=== PATIENT | female | born 1950 | race Caucasian/White ===

== ENCOUNTER 2016-09-15 09:16 | Inpatient (IN) | payer MEDICAID, OTHER ==
[~2016-09-15] VITALS: Ht 160 cm; Wt 75.7 kg
[~2016-09-15 09:16] MED LIST: ACET325T14 PO; HYDR-3138 PO; LISI-167; LISI-167 PO; TRAM50TA2 PO
[2016-09-15] MEDS ORDERED: SODIUM CHLORIDE 0.9% 1,000 ML IV ONE (09:49)
[2016-09-15] MEDS ORDERED: ONDANSETRON 2MG/ML, 2ML IVPush ONE (10:00)
[2016-09-15] MEDS ORDERED: MORPHINE SULFATE 4 MG/ML, 1ML IVPush PRN (10:00)
[2016-09-15] MEDS ORDERED: SODIUM CHLORIDE 0.9% 1,000ML IVBOLUS ONE (10:00)
[2016-09-15] MEDS ORDERED: ONDANSETRON 2MG/ML, 2ML ONE (10:58)
[2016-09-15] MEDS ORDERED: MORPHINE SULFATE 4 MG/ML, 1ML ONE (10:58)
[2016-09-15 13:31] LABS: BLOOD UREA NITROGEN 6 mg/dL (7-18)
[2016-09-15 13:51] LABS: PATH.CAST-FLAG NOT PRESENT; SPERM-FLAG NOT PRESENT; SRC-FLAG NOT PRESENT; XTAL-FLAG NOT PRESENT; YLC-FLAG NOT PRESENT
[2016-09-15] MEDS ORDERED: ACETAMINOPHEN 325 MG TABLET PO PRN (14:30)
[2016-09-15] MEDS ORDERED: DOCUSATE 100 MG CAPSULE PO PRN (14:30)
[2016-09-15] MEDS ORDERED: LORazepam 1MG TABLET PO PRN (14:30)
[2016-09-15] MEDS ORDERED: POLYETHYLENE GLYCOL 17 GM PACKET PO PRN (14:30)
[2016-09-15] MEDS ORDERED: ENALAPRILAT 1.25 MG/ML, 2ML IVPush PRN (14:30)
[2016-09-15] MEDS ORDERED: ONDANSETRON 2MG/ML, 2ML IVP PRN (14:30)
[2016-09-15 14:53] VITALS: BP 130/75
[2016-09-15] MEDS: MORPHINE SULFATE 4 MG/ML, 1ML IVPush PRN ×3 (15:00→22:19)
[2016-09-15 16:03] LABS: TOTAL IRON BINDING CAPACITY 401 mcg/dL (250-450)
[2016-09-15] MEDS: NS + 20MEQ KCL 1,000 ML IV SCH (17:18)
[2016-09-15] MEDS: CEFTRIAXONE PMX 2GM/50ML 50 ML IV SCH (17:19)
[2016-09-15 18:24] VITALS: BP 124/68
[2016-09-15] MEDS: HYDROcodone/APAP 5/325 TABLET PO PRN (20:26)
[2016-09-16 01:58] VITALS: BP 126/72
[2016-09-16] MEDS: HYDROcodone/APAP 5/325 TABLET PO PRN (04:11)
[2016-09-16] MEDS: MORPHINE SULFATE 4 MG/ML, 1ML IVPush PRN ×5 (04:54→21:37)
[2016-09-16 05:17] LABS: BLOOD UREA NITROGEN 9 mg/dL (7-18)
[2016-09-16 05:21] LABS: ASPARTATE AMINO TRANSFERASE 25 U/L (15-37)
[2016-09-16 07:06] VITALS: BP 140/72
[2016-09-16] MEDS: LISINOPRIL 10 MG TABLET PO SCH (09:50)
[2016-09-16] MEDS: OXYcodone/APAP 5/325MG TABLET PO PRN ×3 (13:56→22:09)
[2016-09-16] MEDS: NS + 20MEQ KCL 1,000 ML IV SCH ×2 (13:57→20:50)
[2016-09-16 14:51] VITALS: BP 128/58
[2016-09-16] MEDS: CEFTRIAXONE PMX 2GM/50ML 50 ML IV SCH (16:10)
[2016-09-16] MEDS: FERROUS SULFATE 325 MG TABLET PO SCH (17:31)
[2016-09-16 19:55] VITALS: BP 144/74
[2016-09-17 01:53] VITALS: BP 146/79
[2016-09-17] MEDS: MORPHINE SULFATE 4 MG/ML, 1ML IVPush PRN ×7 (02:06→23:31)
[2016-09-17] MEDS: OXYcodone/APAP 5/325MG TABLET PO PRN ×5 (02:19→21:55)
[2016-09-17] MEDS: NS + 20MEQ KCL 1,000 ML IV SCH ×2 (05:48→23:30)
[2016-09-17 08:15] VITALS: BP 138/98
[2016-09-17] MEDS: LISINOPRIL 10 MG TABLET PO SCH (09:20)
[2016-09-17] MEDS: FERROUS SULFATE 325 MG TABLET PO SCH ×2 (09:20→17:11)
[2016-09-17 15:50] VITALS: BP 153/75
[2016-09-17] MEDS: CEFTRIAXONE PMX 2GM/50ML 50 ML IV SCH (17:11)
[2016-09-17] MEDS: ENOXAPARIN 40 MG/0.4 ML SQ SCH (17:12)
[2016-09-17 18:22] VITALS: BP 154/85
[2016-09-18] MEDS: OXYcodone/APAP 5/325MG TABLET PO PRN (02:20)
[2016-09-18 02:24] VITALS: BP 142/79
[2016-09-18] MEDS: MORPHINE SULFATE 4 MG/ML, 1ML IVPush PRN (04:25)
[2016-09-18 07:15] VITALS: BP 134/83
[2016-09-18] MEDS: OXYcodone IR 5MG TABLET PO PRN ×4 (08:29→22:09)
[2016-09-18] MEDS: LISINOPRIL 10 MG TABLET PO SCH (08:31)
[2016-09-18] MEDS: FERROUS SULFATE 325 MG TABLET PO SCH ×2 (08:31→18:07)
[2016-09-18] MEDS ORDERED: CEFD300C37 PO (09:11)
[2016-09-18] MEDS ORDERED: OXYC5TAB3 PO (09:11)
[2016-09-18] MEDS ORDERED: ASPI325T4 PO (09:11)
[2016-09-18] MEDS: NS + 20MEQ KCL 1,000 ML IV SCH (12:50)
[2016-09-18 15:13] VITALS: BP 142/76
[2016-09-18] MEDS: CEFTRIAXONE PMX 2GM/50ML 50 ML IV SCH (17:00)
[2016-09-18] MEDS: ENOXAPARIN 40 MG/0.4 ML SQ SCH (18:07)
[2016-09-18 19:55] VITALS: BP 150/90
[2016-09-18] MEDS: CEFDINIR 300 MG CAPSULE PO SCH (21:09)
[2016-09-19 02:04] VITALS: BP 112/61
[2016-09-19] MEDS: OXYcodone IR 5MG TABLET PO PRN ×6 (02:09→23:47)
[2016-09-19 07:59] VITALS: BP 133/74
[2016-09-19] MEDS: FERROUS SULFATE 325 MG TABLET PO SCH ×2 (09:43→17:32)
[2016-09-19] MEDS: LISINOPRIL 10 MG TABLET PO SCH (09:44)
[2016-09-19] MEDS: CEFDINIR 300 MG CAPSULE PO SCH ×2 (09:44→20:36)
[2016-09-19] MEDS: KETOROLAC 30 MG/1 ML IVPush PRN ×3 (11:52→23:47)
[2016-09-19 13:32] VITALS: BP 129/69
[2016-09-19] MEDS: ENOXAPARIN 40 MG/0.4 ML SQ SCH (17:00)
[2016-09-19 18:33] VITALS: BP 155/76
[2016-09-20 02:08] VITALS: BP 136/68
[2016-09-20] MEDS: OXYcodone IR 5MG TABLET PO PRN ×5 (04:34→20:54)
[2016-09-20] MEDS: KETOROLAC 30 MG/1 ML IVPush PRN ×3 (05:55→18:31)
[2016-09-20 07:45] VITALS: BP 148/85
[2016-09-20] MEDS: FERROUS SULFATE 325 MG TABLET PO SCH ×2 (08:37→17:09)
[2016-09-20] MEDS: CEFDINIR 300 MG CAPSULE PO SCH ×2 (08:38→20:54)
[2016-09-20] MEDS: LISINOPRIL 10 MG TABLET PO SCH (08:38)
[2016-09-20 13:20] VITALS: BP 139/68
[2016-09-20] MEDS: ENOXAPARIN 40 MG/0.4 ML SQ SCH (17:00)
[2016-09-20 20:17] VITALS: BP 150/81
[2016-09-21] MEDS: OXYcodone IR 5MG TABLET PO PRN ×5 (02:07→21:27)
[2016-09-21] MEDS: KETOROLAC 30 MG/1 ML IVPush PRN ×5 (02:07→23:21)
[2016-09-21 03:52] VITALS: BP 151/79
[2016-09-21 07:10] VITALS: BP 183/83
[2016-09-21] MEDS: FERROUS SULFATE 325 MG TABLET PO SCH ×2 (07:32→17:48)
[2016-09-21] MEDS: LISINOPRIL 10 MG TABLET PO SCH (08:42)
[2016-09-21] MEDS: CEFDINIR 300 MG CAPSULE PO SCH ×2 (08:42→21:27)
[2016-09-21 08:44] VITALS: BP 155/76
[2016-09-21 13:10] VITALS: BP 157/81
[2016-09-21 15:04] VITALS: BP 138/78
[2016-09-21] MEDS: ENOXAPARIN 40 MG/0.4 ML SQ SCH (17:00)
[2016-09-21 19:46] VITALS: BP 148/76
[2016-09-22 02:03] VITALS: BP 121/63
[2016-09-22] MEDS: OXYcodone IR 5MG TABLET PO PRN ×4 (02:07→15:08)
[2016-09-22] MEDS: KETOROLAC 30 MG/1 ML IVPush PRN ×2 (06:08→12:17)
[2016-09-22 08:16] VITALS: BP 151/79
[2016-09-22] MEDS: FERROUS SULFATE 325 MG TABLET PO SCH (08:26)
[2016-09-22] MEDS: LISINOPRIL 10 MG TABLET PO SCH (09:47)
[2016-09-22] MEDS: CEFDINIR 300 MG CAPSULE PO SCH (09:48)
[2016-09-22 13:19] VITALS: BP 132/68
[2016-09-22 17:21] VITALS: BP 158/83
== END 2016-09-22 17:40 | disposition home or self-care (01) | DRG 536 ==
LOC: ED 13:17 → EDIP 13:18 → ED 13:38 → 4NOR 14:25
PROVIDERS: ADMIT Internal Medicine; ATTEND Internal Medicine
DX: S72.114A Nondisplaced fracture of greater trochanter of right femur, initial encounter for closed fracture (principal); N39.0 Urinary tract infection, site not specified; E44.1 Mild protein-calorie malnutrition; M48.56XA Collapsed vertebra, not elsewhere classified, lumbar region, initial encounter for fracture; D64.9 Anemia, unspecified; D75.89 Other specified diseases of blood and blood-forming organs; E87.6 Hypokalemia; G89.29 Other chronic pain; I10 Essential (primary) hypertension; W01.0XXA Fall on same level from slipping, tripping and stumbling without subsequent striking against object, initial encounter; Z96.643 Presence of artificial hip joint, bilateral; B96.20 Unspecified Escherichia coli [E. coli] as the cause of diseases classified elsewhere; D50.9 Iron deficiency anemia, unspecified; Z68.28 Body mass index [BMI] 28.0-28.9, adult; Z90.49 Acquired absence of other specified parts of digestive tract; Z82.49 Family history of ischemic heart disease and other diseases of the circulatory system; Y93.89 Activity, other specified; Y92.89 Other specified places as the place of occurrence of the external cause; Y99.8 Other external cause status; Z79.899 Other long term (current) drug therapy; Z68.29 Body mass index [BMI] 29.0-29.9, adult
CPT/HCPCS: 36415; 71010; 72110; 80048; 80053; 81001; 82040; 82607; 82746; 83540; 83550; 83735; 84100; 85025; 87077; 87086; 87186; 93005; 96361; 96374; 96375; J0696; J1650; J1885; J2405; J3480; J7030

== ENCOUNTER 2016-09-24 18:42 | Emergency (ER) | payer MEDICAID ==
[~2016-09-24] VITALS: Ht 162.6 cm; Wt 72.0 kg
[~2016-09-24 18:42] MED LIST changes: +ASPI325T4 PO; +CEFD300C37 PO; +OXYC5TAB3 PO
[2016-09-24] MEDS ORDERED: ONDANSETRON 2MG/ML, 2ML IVPush ONE (20:00)
[2016-09-24] MEDS ORDERED: ONDANSETRON 2MG/ML, 2ML ONE (20:08)
[2016-09-24] MEDS ORDERED: MORPHINE SULFATE 4 MG/ML, 1ML ONE ×2 (20:08→22:10)
[2016-09-24 20:17] LABS: BLOOD UREA NITROGEN 14 mg/dL (7-18)
[2016-09-24] MEDS: MORPHINE SULFATE 4 MG/ML, 1ML IVPush PRN ×2 (21:11→22:13)
[2016-09-24 22:55] VITALS: BP 124/78
== END 2016-09-24 22:59 | disposition home or self-care (01) ==
LOC: ED 21:59
DX: G89.29 Other chronic pain (principal); M25.551 Pain in right hip; I10 Essential (primary) hypertension
CPT/HCPCS: 36415; 72110; 80048; 81001; 85025; 87086; 93971; 96374; 96375; 96376; 99285; J2405

== ENCOUNTER 2016-10-11 12:02 | Observation (INO) | payer MEDICAID ==
[~2016-10-11] VITALS: Ht 167.6 cm; Wt 64.4 kg
[2016-10-11] MEDS ORDERED: SODIUM CHLORIDE FLUSH 10ML SYR IVF ONE (12:30)
[2016-10-11] MEDS ORDERED: ASPIRIN 81 MG TABLET CHEW PO ONE (12:30)
[2016-10-11] MEDS ORDERED: SODIUM CHLORIDE 0.9% 1,000ML IVBOLUS ONE ×2 (12:30→14:30)
[2016-10-11] MEDS ORDERED: PLEASE ENTER HEIGHT AND WEIGHT MC SCH (13:00)
[2016-10-11] MEDS ORDERED: ASPIRIN 81 MG TABLET CHEW ONE (13:11)
[2016-10-11 13:17] LABS: BLOOD UREA NITROGEN 21 mg/dL (7-18)
[2016-10-11 13:24] LABS: IS PT STATUS REG ER OR PRE ER? YES
[2016-10-11] MEDS ORDERED: SODIUM CHLORIDE FLUSH 10ML SYR IVF PRN (15:30)
[2016-10-11] MEDS ORDERED: POTASSIUM CHLORIDE 20 MEQ TAB.ER.PRT PO ONE (16:30)
[2016-10-11] MEDS ORDERED: ENALAPRILAT 1.25 MG/ML, 2ML IVPush PRN (17:00)
[2016-10-11] MEDS ORDERED: BISACODYL 10 MG SUPP PR PRN (17:00)
[2016-10-11] MEDS ORDERED: DOCUSATE 100 MG CAPSULE PO PRN (17:00)
[2016-10-11] MEDS ORDERED: TRAZODONE 50MG TABLET PO PRN (17:00)
[2016-10-11] MEDS ORDERED: ONDANSETRON ODT 4 MG PO PRN (17:00)
[2016-10-11] MEDS: morphine SULFATE 10 MG/ML, 1ML IVPush PRN ×2 (18:03→21:21)
[2016-10-11 18:35] LABS: IS PT STATUS REG ER OR PRE ER? NO
[2016-10-11] MEDS: SODIUM CHLORIDE FLUSH 3ML SYRINGE IVF SCH (21:00)
[2016-10-11] MEDS: ENOXAPARIN 40 MG/0.4 ML SQ SCH (21:00)
[2016-10-11] MEDS: CEFTRIAXONE PMX 1GM/50ML 50 ML IV SCH (21:20)
[2016-10-11 21:28] VITALS: BP 174/90
[2016-10-12 01:58] VITALS: BP 166/88
[2016-10-12] MEDS: morphine SULFATE 10 MG/ML, 1ML IVPush PRN ×4 (04:27→23:31)
[2016-10-12 06:41] VITALS: BP 161/85
[2016-10-12 07:46] LABS: BLOOD UREA NITROGEN 10 mg/dL (7-18)
[2016-10-12] MEDS: ASPIRIN 325 MG TABLET EC PO SCH (08:15)
[2016-10-12] MEDS: SODIUM CHLORIDE FLUSH 3ML SYRINGE IVF SCH ×2 (08:16→21:00)
[2016-10-12] MEDS: HYDROcodone/APAP 5/325 TABLET PO PRN ×3 (10:15→21:04)
[2016-10-12 14:21] VITALS: BP 161/80
[2016-10-12] MEDS: METOPROLOL TARTRATE 25 MG TABLET PO SCH (16:38)
[2016-10-12] MEDS: ENOXAPARIN 40 MG/0.4 ML SQ SCH (21:00)
[2016-10-12] MEDS: CEFTRIAXONE PMX 1GM/50ML 50 ML IV SCH (21:03)
[2016-10-12 21:06] VITALS: BP 158/79
[2016-10-13 01:31] VITALS: BP 156/84
[2016-10-13] MEDS: HYDROcodone/APAP 5/325 TABLET PO PRN ×3 (03:06→12:15)
[2016-10-13] MEDS: METOPROLOL TARTRATE 25 MG TABLET PO SCH (06:16)
[2016-10-13] MEDS: ASPIRIN 325 MG TABLET EC PO SCH (06:16)
[2016-10-13 07:19] VITALS: BP 168/83
[2016-10-13] MEDS: SODIUM CHLORIDE FLUSH 3ML SYRINGE IVF SCH (07:48)
[2016-10-13] MEDS ORDERED: REGADENOSON 0.4 MG/5 ML SYRINGE ONE (08:16)
[2016-10-13 13:30] VITALS: BP 139/78
[2016-10-13] MEDS ORDERED: OXYcodone/APAP 10/325MG TABLET PO SCH (14:00)
[2016-10-13] MEDS ORDERED: MORPHINE SULFATE 4 MG/ML, 1ML IVPush ONE (14:00)
[2016-10-13] MEDS ORDERED: METO25TA35 PO (15:38)
[2016-10-13] MEDS ORDERED: HYDR-3240 PO (15:38)
[2016-10-13] MEDS ORDERED: METOPROLOL TARTRATE 25 MG TABLET PO SCH (18:00)
[2016-10-13] MEDS ORDERED: SODIUM CHLORIDE FLUSH 3ML SYRINGE IVF SCH (21:00)
== END 2016-10-13 17:55 | disposition home or self-care (01) ==
LOC: ED 16:30 → 5SO 16:31 → ED 16:42
PROVIDERS: ADMIT Internal Medicine; ATTEND Internal Medicine
DX: M25.551 Pain in right hip (principal); M79.604 Pain in right leg; M79.601 Pain in right arm; R07.89 Other chest pain; G89.29 Other chronic pain; R30.0 Dysuria; E87.6 Hypokalemia; I10 Essential (primary) hypertension; D64.9 Anemia, unspecified; D75.89 Other specified diseases of blood and blood-forming organs; E46 Unspecified protein-calorie malnutrition; M19.012 Primary osteoarthritis, left shoulder; N39.0 Urinary tract infection, site not specified; Z96.643 Presence of artificial hip joint, bilateral
CPT/HCPCS: 36415; 70450; 71010; 73030; 73502; 78452; 80048; 81001; 82040; 84484; 85025; 93005; 93017; 96361; 96365; 96366; 96375; 96376; 97161; 97165; 99285; A9502; C9898; G0378; J0696; J2270; J2785; J7030

== ENCOUNTER 2016-12-15 18:56 | Emergency (ER) | payer SELFPAY ==
[~2016-12-15] VITALS: Ht 157.5 cm; Wt 75.0 kg
[~2016-12-15 18:56] MED LIST changes: +HYDR-3240 PO; +METO25TA35 PO
[2016-12-15] MEDS ORDERED: SODIUM CHLORIDE 0.9% 1,000ML IVBOLUS ONE (19:30)
[2016-12-15] MEDS ORDERED: ACETAMINOPHEN 325 MG TABLET PO ONE (19:30)
[2016-12-15] MEDS ORDERED: SODIUM CHLORIDE FLUSH 10ML SYR IVF ONE (19:30)
[2016-12-15] MEDS ORDERED: PLEASE ENTER HEIGHT AND WEIGHT MC SCH (19:30)
[2016-12-15] MEDS ORDERED: ACETAMINOPHEN 500 MG TABLET ONE (19:30)
[2016-12-15 20:27] LABS: BLOOD UREA NITROGEN 19 mg/dL (7-18)
[2016-12-15 20:36] LABS: IS PT STATUS REG ER OR PRE ER? YES
[2016-12-15] MEDS ORDERED: OMNIPAQUE 350 MG/ML, 100ML BOTTLE ONE (22:18)
[2016-12-15] MEDS ORDERED: ENAL2.5T PO (23:10)
[2016-12-15] MEDS ORDERED: NAPR-874 PO (23:10)
[2016-12-15 23:31] VITALS: BP 110/80
== END 2016-12-16 00:01 | disposition home or self-care (01) ==
LOC: ED 20:08
DX: M25.551 Pain in right hip (principal); G89.29 Other chronic pain; F10.120 Alcohol abuse with intoxication, uncomplicated; I10 Essential (primary) hypertension; I25.2 Old myocardial infarction; Z96.643 Presence of artificial hip joint, bilateral
CPT/HCPCS: 36415; 70450; 71010; 71275; 72125; 80048; 80307; 82040; 84484; 85025; 85379; 85610; 85730; 93005; 96360; 99285; J7030; Q9967

== ENCOUNTER 2016-12-23 17:09 | Emergency (ER) | payer OTHER ==
[~2016-12-23] VITALS: Ht 165.1 cm; Wt 90.0 kg
[~2016-12-23 17:09] MED LIST changes: +ENAL2.5T PO; +NAPR-874 PO
[2016-12-23 19:24] VITALS: BP 128/68
== END 2016-12-23 19:42 | disposition home or self-care (01) ==
LOC: ED 19:00
DX: F10.229 Alcohol dependence with intoxication, unspecified (principal); I10 Essential (primary) hypertension
CPT/HCPCS: 99283

== ENCOUNTER 2017-01-02 17:09 | Emergency (ER) | payer MEDICAID, OTHER ==
[~2017-01-02] VITALS: Ht 147.3 cm; Wt 60.0 kg
[2017-01-02] MEDS ORDERED: ASPI-650 PO (17:42)
[2017-01-02 19:34] VITALS: BP 138/87
== END 2017-01-02 21:50 | disposition home or self-care (01) ==
LOC: ED 18:35
DX: F10.220 Alcohol dependence with intoxication, uncomplicated (principal); I10 Essential (primary) hypertension; Z96.643 Presence of artificial hip joint, bilateral
CPT/HCPCS: 99283

== ENCOUNTER 2017-01-28 18:10 | Emergency (ER) | payer MEDICAID, OTHER ==
[~2017-01-28] VITALS: Ht 162.6 cm; Wt 72.0 kg
[~2017-01-28 18:10] MED LIST changes: +ASPI-650 PO; +ASPI325T17 PO; -ASPI325T4 PO; -HYDR-3138 PO; +HYDR-3237 PO
[2017-01-28] MEDS ORDERED: THIAMINE 100MG TABLET PO ONE (18:30)
[2017-01-28] MEDS ORDERED: KETOROLAC 60 MG/2 ML IM ONE (18:30)
[2017-01-28] MEDS ORDERED: SODIUM CHLORIDE FLUSH 10ML SYR IVF ONE (18:30)
[2017-01-28] MEDS ORDERED: THIAMINE 100MG TABLET ONE (18:57)
[2017-01-28] MEDS ORDERED: KETOROLAC 30 MG/1 ML ONE (18:57)
[2017-01-28 19:11] LABS: HEMATOCRIT 34.9 % (34.6-47.8); HEMOGLOBIN 11.1 g/dL (11.7-16.4); WHITE BLOOD COUNT 7.9 x10^3/uL (3.4-10)
[2017-01-28 19:21] LABS: BLOOD UREA NITROGEN 12 mg/dL (7-18)
[2017-01-28 19:27] LABS: IS PT STATUS REG ER OR PRE ER? YES
[2017-01-28] MEDS ORDERED: POTASSIUM CHLORIDE 40 MEQ in SODIUM CHLORIDE 0.9% 500 ML IV ONE (20:00)
[2017-01-28] MEDS ORDERED: POTASSIUM CHLORIDE 10% 40 MEQ/30 ML UDC PO ONE (20:00)
[2017-01-28] MEDS ORDERED: POTASSIUM CHLORIDE 20 MEQ TAB.ER.PRT ONE (20:26)
[2017-01-28 21:36] LABS: IS PT STATUS REG ER OR PRE ER? YES
[2017-01-29 00:26] VITALS: BP 101/54
[2017-01-30] MEDS ORDERED: IBUP-1222 PO (22:16)
[2017-01-30] MEDS ORDERED: OMEP10CA4 PO (22:16)
== END 2017-01-29 01:29 | disposition home or self-care (01) ==
LOC: ED 18:49
DX: E86.0 Dehydration (principal); E87.6 Hypokalemia; F10.229 Alcohol dependence with intoxication, unspecified; R07.89 Other chest pain; I10 Essential (primary) hypertension
CPT/HCPCS: 36415; 71010; 80048; 82040; 84484; 85025; 93005; 96365; 96366; 96372; 99285; J1885; J3480; J7040

== ENCOUNTER 2017-01-30 16:28 | Emergency (ER) | payer SELFPAY ==
[~2017-01-30] VITALS: Ht 152.4 cm; Wt 56.0 kg
[2017-01-30] MEDS ORDERED: FAMOTIDINE 20 MG/2 ML IVP ONE (17:00)
[2017-01-30] MEDS ORDERED: PLEASE ENTER ALLERGIES MC SCH ×2 (17:00)
[2017-01-30] MEDS ORDERED: PROMETHAZINE 25 MG/ML, 1ML IM ONE (17:00)
[2017-01-30] MEDS ORDERED: SODIUM CHLORIDE 0.9% 1,000ML IVBOLUS ONE (17:00)
[2017-01-30] MEDS ORDERED: PLEASE ENTER HEIGHT AND WEIGHT MC SCH (17:00)
[2017-01-30] MEDS ORDERED: PANTOPRAZOLE 40 MG IV IVP ONE (17:00)
[2017-01-30 17:11] LABS: ASPARTATE AMINO TRANSFERASE 51 U/L (15-37); BLOOD UREA NITROGEN 7 mg/dL (7-18)
[2017-01-30 17:17] LABS: HEMATOCRIT 33.3 % (34.6-47.8); HEMOGLOBIN 10.5 g/dL (11.7-16.4)
[2017-01-30 22:14] VITALS: BP 140/80
[2017-01-30] MEDS ORDERED: IBUP-1222 PO (22:16)
[2017-01-30] MEDS ORDERED: OMEP10CA4 PO (22:16)
== END 2017-01-30 22:42 | disposition home or self-care (01) ==
LOC: MERGE 16:28 → ED 21:36
DX: R10.13 Epigastric pain (principal); F10.220 Alcohol dependence with intoxication, uncomplicated; M25.551 Pain in right hip
CPT/HCPCS: 36415; 80053; 80307; 83690; 85025; 99284

== ENCOUNTER 2017-02-01 14:13 | Emergency (ER) | payer OTHER ==
[~2017-02-01] VITALS: Ht 147.3 cm; Wt 60.0 kg
[~2017-02-01 14:13] MED LIST changes: +IBUP-1222 PO; +OMEP10CA4 PO
[2017-02-01 15:48] LABS: HEMATOCRIT 32.5 % (34.6-47.8); HEMOGLOBIN 10.3 g/dL (11.7-16.4); WHITE BLOOD COUNT 10.9 x10^3/uL (3.4-10)
[2017-02-01 16:00] LABS: BLOOD UREA NITROGEN 9 mg/dL (7-18)
[2017-02-01 16:07] LABS: ASPARTATE AMINO TRANSFERASE 48 U/L (15-37)
[2017-02-01 20:31] VITALS: BP 147/86
== END 2017-02-01 20:33 | disposition home or self-care (01) ==
LOC: ED 14:19
DX: F10.220 Alcohol dependence with intoxication, uncomplicated (principal); I10 Essential (primary) hypertension; I25.2 Old myocardial infarction; L40.9 Psoriasis, unspecified
CPT/HCPCS: 36415; 80053; 80307; 83605; 85025; 99284

== ENCOUNTER 2017-07-01 15:08 | Emergency (ER) | payer OTHER ==
[~2017-07-01] VITALS: Ht 166.9 cm; Wt 69.0 kg
[~2017-07-01 15:08] MED LIST changes: -NAPR-874 PO; +NAPR250T6 PO
[2017-07-01 15:46] LABS: BASOPHILS # (AUTO) 0.05 x10^3/uL (0-0.1); BASOPHILS % (AUTO) 1 % (0-1); EOSINOPHILS # (AUTO) 0.11 x10^3/uL (0-0.4); EOSINOPHILS % (AUTO) 2 % (1-7); LYMPHOCYTES # (AUTO) 2.02 x10^3/uL (1-3.4); LYMPHOCYTES % (AUTO) 35 % (22-44); MD NO; MEAN CORPUSCULAR HEMOGLOBIN 26.5 pg (27.0-34.8); MEAN CORPUSCULAR HGB CONC 32.3 g/dL (32.4-35.8); MEAN CORPUSCULAR VOLUME 82.1 fL (80-100); MEAN PLATELET VOLUME 8.3 fL (7.4-10.4); MONOCYTES # (AUTO) 0.42 x10^3/uL (0.2-0.8); MONOCYTES % (AUTO) 7 % (2-9); NEUTROPHILS # (AUTO) 3.23 x10^3/uL (1.8-6.8); NEUTROPHILS % (AUTO) 55 % (42-75); PLATELET COUNT 244 x10^3/uL (130-400); RED BLOOD COUNT 4.23 x10^6/uL (3.82-5.3); RED CELL DISTRIBUTION WIDTH 21.7 % (9.6-15.2)
[2017-07-01 15:59] LABS: ALBUMIN 3.2 g/dL (3.4-5.0); ANION GAP 8 mmol/L (5-15); CALCIUM 7.4 mg/dL (8.5-10.1); CHLORIDE 111 mmol/L (98-107); CREATININE 0.49 mg/dL (0.55-1.02)
[2017-07-01 20:25] VITALS: BP 159/78
== END 2017-07-01 22:05 | disposition home or self-care (01) ==
LOC: ED 17:16
DX: R53.81 Other malaise (principal); F10.220 Alcohol dependence with intoxication, uncomplicated; F19.10 Other psychoactive substance abuse, uncomplicated; I10 Essential (primary) hypertension; X58.XXXA Exposure to other specified factors, initial encounter; Y93.89 Activity, other specified; Y99.8 Other external cause status; Y92.009 Unspecified place in unspecified non-institutional (private) residence as the place of occurrence of the external cause
CPT/HCPCS: 36415; 70450; 72190; 80048; 80307; 82040; 85025; 99285

== ENCOUNTER 2017-09-25 17:37 | Emergency (ER) | payer SELFPAY ==
[~2017-09-25] VITALS: Ht 147.3 cm; Wt 60.0 kg
[2017-09-25 18:03] LABS: BASOPHILS # (AUTO) 0.06 x10^3/uL (0-0.1); BASOPHILS % (AUTO) 1 % (0-1); EOSINOPHILS # (AUTO) 0.24 x10^3/uL (0-0.4); EOSINOPHILS % (AUTO) 3 % (1-7); LYMPHOCYTES % (AUTO) 41 % (22-44); MD NO; MEAN CORPUSCULAR HEMOGLOBIN 28.5 pg (27.0-34.8); MEAN CORPUSCULAR HGB CONC 32.9 g/dL (32.4-35.8); MEAN CORPUSCULAR VOLUME 86.6 fL (80-100); MEAN PLATELET VOLUME 7.7 fL (7.4-10.4); MONOCYTES # (AUTO) 0.82 x10^3/uL (0.2-0.8); MONOCYTES % (AUTO) 9 % (2-9); NEUTROPHILS # (AUTO) 4.17 x10^3/uL (1.8-6.8); NEUTROPHILS % (AUTO) 46 % (42-75); PLATELET COUNT 300 x10^3/uL (130-400); RED BLOOD COUNT 3.59 x10^6/uL (3.82-5.3); RED CELL DISTRIBUTION WIDTH 20.6 % (9.6-15.2)
[2017-09-25 18:14] LABS: ALBUMIN 3.2 g/dL (3.4-5.0); ANION GAP 10 mmol/L (5-15); CHLORIDE 114 mmol/L (98-107); CREATININE 0.93 mg/dL (0.55-1.02)
[2017-09-25 20:39] VITALS: BP 116/65
[2017-09-26] MEDS ORDERED: ASPI-496 PO (17:52)
[2017-09-26] MEDS ORDERED: LISI-167 PO (17:52)
[2017-09-26] MEDS ORDERED: QUET50TA PO (17:52)
[2017-09-26] MEDS ORDERED: CARV12.52 PO (17:52)
[2017-09-26] MEDS ORDERED: ENAL20TA PO (17:52)
[2017-09-26] MEDS ORDERED: ATOR40TA PO (17:52)
[2017-09-26] MEDS ORDERED: HYDR25TA6 PO (17:52)
== END 2017-09-25 21:28 | disposition home or self-care (01) ==
LOC: EDBD → ED 21:00 → MERGE 21:00 → ED 21:28
DX: S32.009A Unspecified fracture of unspecified lumbar vertebra, initial encounter for closed fracture (principal); W07.XXXA Fall from chair, initial encounter; Y93.89 Activity, other specified; Y92.89 Other specified places as the place of occurrence of the external cause; Y99.8 Other external cause status
CPT/HCPCS: 36415; 72131; 72192; 80048; 82040; 85025; 99285

== ENCOUNTER 2017-09-26 14:21 | Inpatient (IN) | payer MEDICAID, OTHER ==
[~2017-09-26] VITALS: Ht 154.9 cm; Wt 63.7 kg
[2017-09-26 15:46] LABS: BASOPHILS # (AUTO) 0.08 x10^3/uL (0-0.1); BASOPHILS % (AUTO) 1 % (0-1); EOSINOPHILS # (AUTO) 0.37 x10^3/uL (0-0.4); EOSINOPHILS % (AUTO) 5 % (1-7); LYMPHOCYTES # (AUTO) 3.77 x10^3/uL (1-3.4); LYMPHOCYTES % (AUTO) 45 % (22-44); MD NO; MEAN CORPUSCULAR HGB CONC 33.3 g/dL (32.4-35.8); MEAN CORPUSCULAR VOLUME 87.1 fL (80-100); MEAN PLATELET VOLUME 7.3 fL (7.4-10.4); MONOCYTES # (AUTO) 0.68 x10^3/uL (0.2-0.8); MONOCYTES % (AUTO) 8 % (2-9); NEUTROPHILS # (AUTO) 3.44 x10^3/uL (1.8-6.8); NEUTROPHILS % (AUTO) 41 % (42-75); PLATELET COUNT 266 x10^3/uL (130-400); RED BLOOD COUNT 3.33 x10^6/uL (3.82-5.3); RED CELL DISTRIBUTION WIDTH 20.7 % (9.6-15.2)
[2017-09-26 15:56] LABS: ANION GAP 11 mmol/L (5-15); CALCIUM 7.3 mg/dL (8.5-10.1); CHLORIDE 114 mmol/L (98-107); CREATININE 0.48 mg/dL (0.55-1.02)
[2017-09-26 16:02] LABS: TROPONIN I 0.272 ng/mL (0.000-0.045)
[2017-09-26] MEDS ORDERED: ASPIRIN 325 MG TABLET PO STA (16:48)
[2017-09-26] MEDS ORDERED: ASPIRIN 325 MG TABLET ONE (16:58)
[2017-09-26] MEDS ORDERED: CEFTRIAXONE PMX 1GM/50ML 50 ML ONE (16:59)
[2017-09-26] MEDS ORDERED: AZITHROMYCIN 500 MG in SODIUM CHLORIDE 0.9% 250 ML IV ONE (17:00)
[2017-09-26] MEDS ORDERED: CEFTRIAXONE PMX 1GM/50ML 50 ML IV ONE (17:00)
[2017-09-26] MEDS ORDERED: NITROGLYCERIN OINT 2%, 1GM TP ONE ×2 (17:17→17:30)
[2017-09-26] MEDS ORDERED: ATORVASTATIN 40 MG TABLET PO ONE (17:30)
[2017-09-26] MEDS ORDERED: HYDR25TA6 PO (17:52)
[2017-09-26] MEDS ORDERED: ENAL20TA PO (17:52)
[2017-09-26] MEDS ORDERED: CARV12.52 PO (17:52)
[2017-09-26] MEDS ORDERED: QUET50TA PO (17:52)
[2017-09-26] MEDS ORDERED: ATOR40TA PO (17:52)
[2017-09-26] MEDS ORDERED: LISI-167 PO (17:52)
[2017-09-26] MEDS ORDERED: ASPI-496 PO (17:52)
[2017-09-26] MEDS ORDERED: LORazepam 0.5MG TABLET PO PRN (18:00)
[2017-09-26] MEDS ORDERED: LABETALOL 5MG/ML, 20ML IVPush PRN (18:00)
[2017-09-26] MEDS ORDERED: LORazepam 1MG TABLET PO PRN ×4 (18:00)
[2017-09-26] MEDS ORDERED: LORazepam 2 MG/ML, 1ML IV PRN ×5 (18:00)
[2017-09-26] MEDS ORDERED: ONDANSETRON 2MG/ML, 2ML IVPush PRN (18:00)
[2017-09-26] MEDS ORDERED: ONDANSETRON ODT 4 MG PO PRN (18:00)
[2017-09-26 20:42] VITALS: BP 154/83
[2017-09-26] MEDS ORDERED: ATORVASTATIN 20 MG TABLET PO SCH (21:00)
[2017-09-26] MEDS: POTASSIUM CHLORIDE 20 MEQ, MAGNESIUM SULFATE 1 GM, MVI ADULT 10 ML, THIAMINE 100 MG, FO... IV SCH (22:32)
[2017-09-26] MEDS: PANTOPRAZOLE 40 MG IV IVPush SCH (22:32)
[2017-09-26] MEDS: SODIUM CHLORIDE 0.9% 1,000 ML IV SCH (22:32)
[2017-09-26] MEDS: GUAIFENESIN 200 MG TABLET PO SCH (22:32)
[2017-09-26] MEDS: ACETAMINOPHEN 325 MG TABLET PO PRN (22:33)
[2017-09-26] MEDS ORDERED: ATORVASTATIN 40 MG TABLET ONE (22:36)
[2017-09-26] MEDS: ATORVASTATIN 40 MG TABLET PO SCH (22:43)
[2017-09-26 23:11] LABS: TROPONIN I 0.283 ng/mL (0.000-0.045)
[2017-09-27] VITALS (8 sets, daily range): BP systolic 122–164; BP diastolic 75–95
[2017-09-27] MEDS ORDERED: ASPI-621 PO (02:53)
[2017-09-27] MEDS ORDERED: QUET50TA PO (02:53)
[2017-09-27] MEDS ORDERED: HYDR25TA6 PO (02:53)
[2017-09-27] MEDS ORDERED: ATOR40TA78 PO (02:53)
[2017-09-27] MEDS ORDERED: CARV-39 PO (03:16)
[2017-09-27] MEDS ORDERED: ENAL20TA PO (03:16)
[2017-09-27 03:30] LABS: CULTURE INDICATED? YES; MICROSCOPIC AUTO
[2017-09-27] MEDS: ASPIRIN 81 MG TABLET EC PO SCH (05:48)
[2017-09-27] MEDS: ACETAMINOPHEN 325 MG TABLET PO PRN ×2 (05:48→16:38)
[2017-09-27] MEDS: GUAIFENESIN 200 MG TABLET PO SCH ×4 (05:48→20:41)
[2017-09-27 05:58] LABS: BASOPHILS # (AUTO) 0.07 x10^3/uL (0-0.1); BASOPHILS % (AUTO) 1 % (0-1); EOSINOPHILS # (AUTO) 0.42 x10^3/uL (0-0.4); EOSINOPHILS % (AUTO) 6 % (1-7); LYMPHOCYTES # (AUTO) 1.63 x10^3/uL (1-3.4); LYMPHOCYTES % (AUTO) 24 % (22-44); MD NO; MEAN CORPUSCULAR HGB CONC 33.3 g/dL (32.4-35.8); MEAN PLATELET VOLUME 7.7 fL (7.4-10.4); MONOCYTES # (AUTO) 0.52 x10^3/uL (0.2-0.8); MONOCYTES % (AUTO) 8 % (2-9); NEUTROPHILS # (AUTO) 4.22 x10^3/uL (1.8-6.8); NEUTROPHILS % (AUTO) 62 % (42-75); PLATELET COUNT 204 x10^3/uL (130-400); RED BLOOD COUNT 3.21 x10^6/uL (3.82-5.3); RED CELL DISTRIBUTION WIDTH 21.1 % (9.6-15.2)
[2017-09-27 06:00] LABS: ALBUMIN 2.9 g/dL (3.4-5.0); ANION GAP 10 mmol/L (5-15); CALCIUM 7.6 mg/dL (8.5-10.1); CHLORIDE 113 mmol/L (98-107)
[2017-09-27 06:06] LABS: % IRON SATURATION 10 % (20-55); ALANINE AMINOTRANSFERASE 28 U/L (12-78); ALKALINE PHOSPHATASE 99 U/L (45-117); CREATININE 0.41 mg/dL (0.55-1.02); IRON LEVEL 40 mcg/dL (50-170); TOTAL IRON BINDING CAPACITY 416 mcg/dL (250-450); TOTAL PROTEIN 7.4 g/dL (6.4-8.2); TROPONIN I 0.279 ng/mL (0.000-0.045)
[2017-09-27 06:27] LABS: BILIRUBIN,TOTAL 0.6 mg/dL (0.2-1.0)
[2017-09-27 06:30] LABS: FOLATE LEVEL > 20.0 ng/mL (3.1-17.5)
[2017-09-27] MEDS ORDERED: MAGNESIUM SULFATE PMX 2GM/50ML 50 ML IV ONE (08:00)
[2017-09-27 09:21] LABS: TROPONIN I 0.254 ng/mL (0.000-0.045)
[2017-09-27] MEDS: SODIUM CHLORIDE 0.9% 1,000 ML IV SCH ×2 (09:57→20:40)
[2017-09-27] MEDS: PANTOPRAZOLE 40 MG IV IVPush SCH ×2 (09:57→20:40)
[2017-09-27] MEDS ORDERED: morphine SULFATE 10 MG/ML, 1ML ONE (10:19)
[2017-09-27] MEDS ORDERED: NITROGLYCERIN 0.4 MG BOTTLE (25 TABS) SL ONE (10:20)
[2017-09-27] MEDS ORDERED: morphine SULFATE 10 MG/ML, 1ML IVPush PRN (10:30)
[2017-09-27] MEDS ORDERED: NITROGLYCERIN 0.4 MG/SPRAY SL PRN (10:30)
[2017-09-27] MEDS: NITROGLYCERIN 0.4 MG BOTTLE (25 TABS) SL PRN ×2 (10:38→10:46)
[2017-09-27] MEDS: HYDROCHLOROTHIAZIDE 25 MG TABLET PO SCH (10:53)
[2017-09-27] MEDS: LISINOPRIL 5 MG TABLET PO SCH ×2 (10:54→20:42)
[2017-09-27 10:55] LABS: ANION GAP 10 mmol/L (5-15); CALCIUM 7.6 mg/dL (8.5-10.1); CHLORIDE 115 mmol/L (98-107); CREATININE 0.42 mg/dL (0.55-1.02)
[2017-09-27] MEDS ORDERED: TRAM50TA2 PO (11:13)
[2017-09-27] MEDS: POTASSIUM CHLORIDE 10 MEQ TABLET.ER PO SCH (12:18)
[2017-09-27] MEDS: ENOXAPARIN 40 MG/0.4 ML SQ SCH (12:19)
[2017-09-27] MEDS: CEFTRIAXONE PMX 1GM/50ML 50 ML IV SCH (17:55)
[2017-09-27] MEDS: AZITHROMYCIN 500 MG in SODIUM CHLORIDE 0.9% 250 ML IV SCH (18:48)
[2017-09-27] MEDS: CARVEDILOL 25 MG TABLET PO SCH (20:41)
[2017-09-27] MEDS: ATORVASTATIN 40 MG TABLET PO SCH ×2 (20:41→23:00)
[2017-09-27] MEDS: QUETIAPINE 25MG TABLET PO SCH (20:42)
[2017-09-27] MEDS ORDERED: ATORVASTATIN 20 MG TABLET PO SCH (21:00)
[2017-09-27] MEDS: POTASSIUM CHLORIDE 20 MEQ, MAGNESIUM SULFATE 1 GM, MVI ADULT 10 ML, THIAMINE 100 MG, FO... IV SCH (23:58)
[2017-09-28 01:36] VITALS: BP 127/74
[2017-09-28] MEDS: GUAIFENESIN 200 MG TABLET PO SCH ×4 (05:22→21:35)
[2017-09-28] MEDS: ASPIRIN 81 MG TABLET EC PO SCH (05:22)
[2017-09-28 05:37] LABS: BASOPHILS # (AUTO) 0.05 x10^3/uL (0-0.1); BASOPHILS % (AUTO) 1 % (0-1); EOSINOPHILS # (AUTO) 0.54 x10^3/uL (0-0.4); EOSINOPHILS % (AUTO) 10 % (1-7); LYMPHOCYTES # (AUTO) 1.68 x10^3/uL (1-3.4); LYMPHOCYTES % (AUTO) 31 % (22-44); MD NO; MEAN CORPUSCULAR HEMOGLOBIN 28.6 pg (27.0-34.8); MEAN CORPUSCULAR HGB CONC 32.8 g/dL (32.4-35.8); MEAN PLATELET VOLUME 7.8 fL (7.4-10.4); MONOCYTES # (AUTO) 0.36 x10^3/uL (0.2-0.8); MONOCYTES % (AUTO) 7 % (2-9); NEUTROPHILS # (AUTO) 2.77 x10^3/uL (1.8-6.8); NEUTROPHILS % (AUTO) 51 % (42-75); PLATELET COUNT 214 x10^3/uL (130-400); RED BLOOD COUNT 3.34 x10^6/uL (3.82-5.3); RED CELL DISTRIBUTION WIDTH 21.3 % (9.6-15.2)
[2017-09-28 05:43] LABS: ALANINE AMINOTRANSFERASE 26 U/L (12-78); ALBUMIN 2.9 g/dL (3.4-5.0); ANION GAP 6 mmol/L (5-15); CALCIUM 7.5 mg/dL (8.5-10.1); CHLORIDE 108 mmol/L (98-107)
[2017-09-28 05:46] LABS: ALKALINE PHOSPHATASE 107 U/L (45-117); BILIRUBIN,TOTAL 1.1 mg/dL (0.2-1.0); CREATININE 0.56 mg/dL (0.55-1.02); TOTAL PROTEIN 7.6 g/dL (6.4-8.2)
[2017-09-28 07:27] VITALS: BP 137/83
[2017-09-28] MEDS: OMEPRAZOLE 20 MG CAPSULE.DR PO SCH (07:30)
[2017-09-28] MEDS ORDERED: HYDROCHLOROTHIAZIDE 25 MG TABLET PO SCH (09:00)
[2017-09-28] MEDS: PANTOPRAZOLE 40 MG IV IVPush SCH (09:23)
[2017-09-28] MEDS: HYDROCHLOROTHIAZIDE 25 MG TABLET PO SCH (09:25)
[2017-09-28] MEDS: CARVEDILOL 25 MG TABLET PO SCH ×2 (09:25→21:37)
[2017-09-28] MEDS: LISINOPRIL 5 MG TABLET PO SCH ×2 (09:26→21:35)
[2017-09-28] MEDS ORDERED: SODIUM CHLORIDE 0.9% 1,000 ML IV ONE (09:30)
[2017-09-28] MEDS: SODIUM CHLORIDE 0.9% 1,000 ML IV SCH ×4 (09:34→23:07)
[2017-09-28 10:30] LABS: TROPONIN I 0.198 ng/mL (0.000-0.045)
[2017-09-28] MEDS: ENOXAPARIN 40 MG/0.4 ML SQ SCH (12:30)
[2017-09-28] MEDS ORDERED: DIPHENHYDRAMINE 50 MG/ML, 1ML IVPush STA (13:37)
[2017-09-28] MEDS ORDERED: methylPREDNISolone SOD SUCC 125 MG/2 ML IVPush STA (13:37)
[2017-09-28 13:39] VITALS: BP 131/74
[2017-09-28] MEDS ORDERED: FENTANYL PF 100 MCG/2ML ONE (14:05)
[2017-09-28] MEDS ORDERED: MIDAZOLAM 1 MG/ML, 5ML ONE (14:05)
[2017-09-28] MEDS ORDERED: TICAGRELOR 90 MG TABLET ONE (14:05)
[2017-09-28] MEDS ORDERED: VERAPAMIL 2.5 MG/ML, 2ML ONE (14:05)
[2017-09-28] MEDS ORDERED: LIDOCAINE 2%, 2ML ONE (14:06)
[2017-09-28] MEDS ORDERED: BIVALIRUDIN 250 MG ONE (14:06)
[2017-09-28] MEDS ORDERED: DIPHENHYDRAMINE 50 MG/ML, 1ML ONE (14:06)
[2017-09-28] MEDS ORDERED: methylPREDNISolone SOD SUCC 125 MG/2 ML ONE (14:06)
[2017-09-28] MEDS ORDERED: HEPARIN 1,000 UNITS/ML, 10ML ONE (14:06)
[2017-09-28] MEDS ORDERED: CLOPIDOGREL 300 MG TABLET ONE (14:31)
[2017-09-28] MEDS ORDERED: BIVALIRUDIN 250 MG in DEXTROSE 5% 50 ML IV SCH (15:07)
[2017-09-28] MEDS: POTASSIUM CHLORIDE 10 MEQ TABLET.ER PO SCH (17:53)
[2017-09-28] MEDS: CEFTRIAXONE PMX 1GM/50ML 50 ML IV SCH (18:00)
[2017-09-28] MEDS: AZITHROMYCIN 500 MG in SODIUM CHLORIDE 0.9% 250 ML IV SCH (19:49)
[2017-09-28 19:54] VITALS: BP 138/73
[2017-09-28] MEDS: ATORVASTATIN 40 MG TABLET PO SCH (21:35)
[2017-09-28] MEDS: QUETIAPINE 25MG TABLET PO SCH (21:36)
[2017-09-28] MEDS: POTASSIUM CHLORIDE 20 MEQ, MAGNESIUM SULFATE 1 GM, MVI ADULT 10 ML, THIAMINE 100 MG, FO... IV SCH (23:10)
[2017-09-29 01:59] VITALS: BP 111/58
[2017-09-29 05:02] LABS: MEAN CORPUSCULAR HEMOGLOBIN 28.9 pg (27.0-34.8); MEAN CORPUSCULAR HGB CONC 33.2 g/dL (32.4-35.8); MEAN CORPUSCULAR VOLUME 87.2 fL (80-100); MEAN PLATELET VOLUME 8.1 fL (7.4-10.4); PLATELET COUNT 202 x10^3/uL (130-400); RED BLOOD COUNT 3.41 x10^6/uL (3.82-5.3); RED CELL DISTRIBUTION WIDTH 20.8 % (9.6-15.2)
[2017-09-29 05:11] LABS: ALBUMIN 2.8 g/dL (3.4-5.0); ANION GAP 9 mmol/L (5-15); CALCIUM 7.5 mg/dL (8.5-10.1); CHLORIDE 108 mmol/L (98-107)
[2017-09-29 05:12] LABS: CREATININE 0.48 mg/dL (0.55-1.02)
[2017-09-29] MEDS: GUAIFENESIN 200 MG TABLET PO SCH ×4 (05:38→19:57)
[2017-09-29] MEDS: ASPIRIN 81 MG TABLET EC PO SCH (05:38)
[2017-09-29 06:33] LABS: BASOPHILS % (AUTO) 0 % (0-1); EOSINOPHILS % (AUTO) 0 % (1-7); LYMPHOCYTES # (AUTO) 0.55 x10^3/uL (1-3.4); LYMPHOCYTES % (AUTO) 14 % (22-44); MD SCAN; MONOCYTES # (AUTO) 0.04 x10^3/uL (0.2-0.8); MONOCYTES % (AUTO) 1 % (2-9); NEUTROPHILS # (AUTO) 3.47 x10^3/uL (1.8-6.8); NEUTROPHILS % (AUTO) 85 % (42-75)
[2017-09-29 06:39] VITALS: BP 125/79
[2017-09-29] MEDS: SODIUM CHLORIDE 0.9% 1,000 ML IV SCH ×2 (07:27→17:12)
[2017-09-29] MEDS: HYDROCHLOROTHIAZIDE 25 MG TABLET PO SCH (08:00)
[2017-09-29] MEDS: OMEPRAZOLE 20 MG CAPSULE.DR PO SCH (08:00)
[2017-09-29] MEDS: LISINOPRIL 5 MG TABLET PO SCH ×2 (08:00→19:58)
[2017-09-29] MEDS: CLOPIDOGREL 75 MG TABLET PO SCH (08:00)
[2017-09-29] MEDS: POTASSIUM CHLORIDE 10 MEQ TABLET.ER PO SCH (08:00)
[2017-09-29] MEDS: CARVEDILOL 25 MG TABLET PO SCH ×2 (08:01→19:57)
[2017-09-29] MEDS: ENOXAPARIN 40 MG/0.4 ML SQ SCH ×3 (11:49→12:30)
[2017-09-29 13:43] VITALS: BP 123/73
[2017-09-29] MEDS: CEFTRIAXONE PMX 1GM/50ML 50 ML IV SCH (17:12)
[2017-09-29] MEDS: AZITHROMYCIN 500 MG in SODIUM CHLORIDE 0.9% 250 ML IV SCH (19:57)
[2017-09-29] MEDS: ATORVASTATIN 40 MG TABLET PO SCH (19:57)
[2017-09-29] MEDS: QUETIAPINE 25MG TABLET PO SCH (19:58)
[2017-09-29 20:08] VITALS: BP 143/81
[2017-09-29] MEDS: POTASSIUM CHLORIDE 20 MEQ, MAGNESIUM SULFATE 1 GM, MVI ADULT 10 ML, THIAMINE 100 MG, FO... IV SCH (23:20)
[2017-09-30 01:21] VITALS: BP 118/67
[2017-09-30] MEDS: GUAIFENESIN 200 MG TABLET PO SCH ×4 (05:08→20:25)
[2017-09-30] MEDS: ASPIRIN 81 MG TABLET EC PO SCH (05:08)
[2017-09-30 05:53] LABS: ALBUMIN 2.7 g/dL (3.4-5.0); ANION GAP 5 mmol/L (5-15); CALCIUM 7.5 mg/dL (8.5-10.1); CHLORIDE 113 mmol/L (98-107)
[2017-09-30 05:54] LABS: CREATININE 0.49 mg/dL (0.55-1.02)
[2017-09-30 05:59] LABS: BASOPHILS # (AUTO) 0.02 x10^3/uL (0-0.1); BASOPHILS % (AUTO) 0 % (0-1); EOSINOPHILS # (AUTO) 0.03 x10^3/uL (0-0.4); EOSINOPHILS % (AUTO) 0 % (1-7); LYMPHOCYTES # (AUTO) 1.94 x10^3/uL (1-3.4); LYMPHOCYTES % (AUTO) 23 % (22-44); MD NO; MEAN CORPUSCULAR HEMOGLOBIN 28.7 pg (27.0-34.8); MEAN CORPUSCULAR HGB CONC 32.2 g/dL (32.4-35.8); MEAN CORPUSCULAR VOLUME 89.1 fL (80-100); MEAN PLATELET VOLUME 8.2 fL (7.4-10.4); MONOCYTES # (AUTO) 0.63 x10^3/uL (0.2-0.8); MONOCYTES % (AUTO) 7 % (2-9); NEUTROPHILS % (AUTO) 69 % (42-75); PLATELET COUNT 204 x10^3/uL (130-400); RED BLOOD COUNT 3.21 x10^6/uL (3.82-5.3); RED CELL DISTRIBUTION WIDTH 21.6 % (9.6-15.2)
[2017-09-30] MEDS: CARVEDILOL 25 MG TABLET PO SCH ×2 (08:17→20:25)
[2017-09-30] MEDS: CLOPIDOGREL 75 MG TABLET PO SCH (08:17)
[2017-09-30] MEDS: POTASSIUM CHLORIDE 10 MEQ TABLET.ER PO SCH (08:17)
[2017-09-30] MEDS: OMEPRAZOLE 20 MG CAPSULE.DR PO SCH (08:17)
[2017-09-30] MEDS: LISINOPRIL 5 MG TABLET PO SCH ×2 (08:17→20:25)
[2017-09-30] MEDS: HYDROCHLOROTHIAZIDE 25 MG TABLET PO SCH (08:21)
[2017-09-30] MEDS: SODIUM CHLORIDE 0.9% 1,000 ML IV SCH ×3 (08:21→19:31)
[2017-09-30 08:30] VITALS: BP 138/81
[2017-09-30] MEDS: ENOXAPARIN 40 MG/0.4 ML SQ SCH (11:56)
[2017-09-30 13:32] VITALS: BP 124/76
[2017-09-30] MEDS: CEFTRIAXONE PMX 1GM/50ML 50 ML IV SCH (16:41)
[2017-09-30 19:14] VITALS: BP 155/88
[2017-09-30] MEDS: AZITHROMYCIN 500 MG in SODIUM CHLORIDE 0.9% 250 ML IV SCH (19:31)
[2017-09-30] MEDS: ATORVASTATIN 40 MG TABLET PO SCH (20:25)
[2017-09-30] MEDS: QUETIAPINE 25MG TABLET PO SCH (20:26)
[2017-09-30] MEDS: POTASSIUM CHLORIDE 20 MEQ, MAGNESIUM SULFATE 1 GM, MVI ADULT 10 ML, THIAMINE 100 MG, FO... IV SCH (23:02)
[2017-10-01 00:40] VITALS: BP 149/81
[2017-10-01 04:49] LABS: BASOPHILS # (AUTO) 0.06 x10^3/uL (0-0.1); BASOPHILS % (AUTO) 1 % (0-1); EOSINOPHILS # (AUTO) 0.26 x10^3/uL (0-0.4); EOSINOPHILS % (AUTO) 3 % (1-7); LYMPHOCYTES # (AUTO) 2.18 x10^3/uL (1-3.4); LYMPHOCYTES % (AUTO) 28 % (22-44); MD NO; MEAN CORPUSCULAR HEMOGLOBIN 28.6 pg (27.0-34.8); MEAN CORPUSCULAR HGB CONC 32.2 g/dL (32.4-35.8); MEAN CORPUSCULAR VOLUME 88.7 fL (80-100); MEAN PLATELET VOLUME 8.2 fL (7.4-10.4); MONOCYTES # (AUTO) 0.58 x10^3/uL (0.2-0.8); MONOCYTES % (AUTO) 8 % (2-9); NEUTROPHILS % (AUTO) 60 % (42-75); PLATELET COUNT 223 x10^3/uL (130-400); RED BLOOD COUNT 3.32 x10^6/uL (3.82-5.3); RED CELL DISTRIBUTION WIDTH 21.2 % (9.6-15.2)
[2017-10-01 04:59] LABS: ALBUMIN 2.8 g/dL (3.4-5.0); ANION GAP 8 mmol/L (5-15); CALCIUM 8.1 mg/dL (8.5-10.1); CHLORIDE 109 mmol/L (98-107); CREATININE 0.49 mg/dL (0.55-1.02)
[2017-10-01] MEDS: GUAIFENESIN 200 MG TABLET PO SCH ×2 (06:08→11:00)
[2017-10-01] MEDS: ASPIRIN 81 MG TABLET EC PO SCH (06:08)
[2017-10-01] MEDS: POTASSIUM CHLORIDE 10 MEQ TABLET.ER PO SCH (07:47)
[2017-10-01] MEDS: OMEPRAZOLE 20 MG CAPSULE.DR PO SCH (07:47)
[2017-10-01] MEDS: CLOPIDOGREL 75 MG TABLET PO SCH (07:47)
[2017-10-01] MEDS: LISINOPRIL 5 MG TABLET PO SCH (07:47)
[2017-10-01] MEDS: CARVEDILOL 25 MG TABLET PO SCH (07:48)
[2017-10-01 07:51] VITALS: BP 140/80
[2017-10-01] MEDS: HYDROCHLOROTHIAZIDE 25 MG TABLET PO SCH (07:51)
[2017-10-01] MEDS ORDERED: LISI5TAB7 PO (08:47)
[2017-10-01] MEDS ORDERED: CEFD300C37 PO (08:47)
[2017-10-01] MEDS ORDERED: ASPI-621 PO (08:47)
[2017-10-01] MEDS ORDERED: HYDR25TA6 PO (08:47)
[2017-10-01] MEDS ORDERED: DOXY100T PO (08:47)
[2017-10-01] MEDS ORDERED: GUAI200T3 PO (08:47)
[2017-10-01] MEDS ORDERED: CLOP75TA PO (08:47)
[2017-10-01] MEDS: ENOXAPARIN 40 MG/0.4 ML SQ SCH (11:15)
== END 2017-10-01 13:33 | disposition home or self-care (01) | DRG 248 ==
LOC: EDBD 14:21 → MERGE 14:21 → ED 17:11 → EDIP 17:12 → ED 18:12 → 5SO 20:26
PROVIDERS: ADMIT Hospitalist; ATTEND Hospitalist
PROC: 02713EZ Dilation of Coronary Artery, Two Arteries with Two Intraluminal Devices, Percutaneous Approach (ICD-10-PCS; principal; 2017-09-28)
PROC: 4A023N7 Measurement of Cardiac Sampling and Pressure, Left Heart, Percutaneous Approach (ICD-10-PCS; 2017-09-28)
PROC: B2111ZZ Fluoroscopy of Multiple Coronary Arteries using Low Osmolar Contrast (ICD-10-PCS; 2017-09-28)
PROC: B2151ZZ Fluoroscopy of Left Heart using Low Osmolar Contrast (ICD-10-PCS; 2017-09-28)
DX: I21.4 Non-ST elevation (NSTEMI) myocardial infarction (principal); J18.9 Pneumonia, unspecified organism; E44.0 Moderate protein-calorie malnutrition; E87.2 Acidosis; W18.30XA Fall on same level, unspecified, initial encounter; Z68.26 Body mass index [BMI] 26.0-26.9, adult; D64.9 Anemia, unspecified; E78.5 Hyperlipidemia, unspecified; F39 Unspecified mood [affective] disorder; G89.29 Other chronic pain; I10 Essential (primary) hypertension; I25.10 Atherosclerotic heart disease of native coronary artery without angina pectoris; Z96.643 Presence of artificial hip joint, bilateral; E66.9 Obesity, unspecified; F10.129 Alcohol abuse with intoxication, unspecified; Y90.9 Presence of alcohol in blood, level not specified; M19.90 Unspecified osteoarthritis, unspecified site; Y93.89 Activity, other specified; Y92.89 Other specified places as the place of occurrence of the external cause; Z91.041 Radiographic dye allergy status; Y99.2 Volunteer activity; Z59.0 Homelessness; Z83.3 Family history of diabetes mellitus; Z87.891 Personal history of nicotine dependence; Z91.19 Patient's noncompliance with other medical treatment and regimen; Z90.49 Acquired absence of other specified parts of digestive tract
CPT/HCPCS: 36415; 71045; 80048; 80053; 80307; 81001; 82040; 82607; 82728; 82746; 83540; 83550; 83735; 83880; 84100; 84439; 84443; 84484; 85025; 87040; 87070; 87086; 87205; 92928; 93005; 93306; 93458; 99156; 99157; 99285; C1876; C1894; J0456; J0583; J0696; J1644; J1650; J2250; J3010; J3411; J3475; J3480; J3490; C1725; C1769; C1887; C9113; J1200; J2270; J2930; J7030; J7050; Q9967

== ENCOUNTER 2017-10-07 18:19 | Inpatient (IN) | payer MEDICAID, OTHER ==
[~2017-10-07] VITALS: Ht 142.2 cm; Wt 63.8 kg
[~2017-10-07 18:19] MED LIST changes: +ASPI-496 PO; +ASPI-621 PO; +ATOR40TA PO; +ATOR40TA78 PO; +CARV-39 PO; +CARV12.52 PO; +CLOP75TA PO; +CLOPIDOGREL 75 MG TABLET PO ONE; +DOXY100T PO; +ENAL20TA PO; +GUAI200T3 PO; +HYDR25TA6 PO; +LISI5TAB7 PO; +QUET50TA PO
[2017-10-07] MEDS ORDERED: SODIUM CHLORIDE FLUSH 10ML SYR IVF ONE (19:00)
[2017-10-07] MEDS ORDERED: SODIUM CHLORIDE 0.9% 1,000ML IVBOLUS ONE (19:00)
[2017-10-07] MEDS ORDERED: ASPIRIN 81 MG TABLET CHEW PO ONE (19:00)
[2017-10-07 19:26] LABS: MEAN CORPUSCULAR HEMOGLOBIN 28.7 pg (27.0-34.8); MEAN CORPUSCULAR HGB CONC 32.9 g/dL (32.4-35.8); MEAN CORPUSCULAR VOLUME 87.5 fL (80-100); MEAN PLATELET VOLUME 7.7 fL (7.4-10.4); PLATELET COUNT 327 x10^3/uL (130-400); RED BLOOD COUNT 3.36 x10^6/uL (3.82-5.3); RED CELL DISTRIBUTION WIDTH 20.6 % (9.6-15.2)
[2017-10-07 19:28] LABS: INTERNATIONAL NORMALIZED RATIO 1.07 (0.93-1.1); PROTHROMBIN TIME 11.1 Seconds (9.6-11.5)
[2017-10-07 19:32] LABS: ALBUMIN 3.3 g/dL (3.4-5.0); ANION GAP 10 mmol/L (5-15); CALCIUM 8.5 mg/dL (8.5-10.1); CHLORIDE 116 mmol/L (98-107); CREATININE 0.63 mg/dL (0.55-1.02)
[2017-10-07 19:49] LABS: BASOPHILS % (AUTO) 1 % (0-1); EOSINOPHILS # (AUTO) 0.25 x10^3/uL (0-0.4); EOSINOPHILS % (AUTO) 3 % (1-7); LYMPHOCYTES # (AUTO) 3.31 x10^3/uL (1-3.4); LYMPHOCYTES % (AUTO) 42 % (22-44); MONOCYTES # (AUTO) 0.71 x10^3/uL (0.2-0.8); MONOCYTES % (AUTO) 9 % (2-9); NEUTROPHILS # (AUTO) 3.49 x10^3/uL (1.8-6.8); NEUTROPHILS % (AUTO) 44 % (42-75)
[2017-10-07 19:50] LABS: MD SCAN
[2017-10-07] MEDS ORDERED: NITROGLYCERIN OINT 2%, 1GM TP ONE ×2 (20:00→21:00)
[2017-10-07] MEDS ORDERED: HEPARIN 5,000 UNITS/ML, 1ML IV ONE ×3 (20:30→22:30)
[2017-10-07] MEDS ORDERED: CLOPIDOGREL 75 MG TABLET PO ONE (20:30)
[2017-10-07] MEDS ORDERED: HEPARIN 25,000 UNITS/500ML PMX 500 ML IV PRN ×2 (20:30→22:00)
[2017-10-07] MEDS ORDERED: ASPIRIN 81 MG TABLET CHEW ONE (21:01)
[2017-10-07] MEDS ORDERED: NITROGLYCERIN 0.4 MG BOTTLE (25 TABS) SL PRN ×2 (21:30)
[2017-10-07] MEDS ORDERED: NITROGLYCERIN 0.4 MG/SPRAY SL PRN (21:30)
[2017-10-07] MEDS ORDERED: ACETAMINOPHEN 325 MG TABLET PO PRN (21:30)
[2017-10-07] MEDS ORDERED: DOCUSATE 100 MG CAPSULE PO PRN (21:30)
[2017-10-07] MEDS ORDERED: LORazepam 1MG TABLET PO PRN (21:30)
[2017-10-07] MEDS ORDERED: LABETALOL 5MG/ML, 20ML IVPush PRN (21:30)
[2017-10-07] MEDS ORDERED: ONDANSETRON ODT 4 MG PO PRN (21:30)
[2017-10-07] MEDS ORDERED: POTASSIUM CHLORIDE 20 MEQ TAB.ER.PRT PO ONE (22:00)
[2017-10-07] MEDS ORDERED: HEPARIN 5,000 UNITS/ML, 1ML IV PRN (22:00)
[2017-10-07] MEDS: morphine SULFATE 10 MG/ML, 1ML IVPush PRN (22:38)
[2017-10-07] MEDS: CARVEDILOL 25 MG TABLET PO SCH (22:47)
[2017-10-07] MEDS: LISINOPRIL 5 MG TABLET PO SCH (22:49)
[2017-10-07] MEDS: ATORVASTATIN 40 MG TABLET PO SCH (22:50)
[2017-10-07] MEDS: QUETIAPINE 25MG TABLET PO SCH (22:50)
[2017-10-07 23:01] VITALS: BP 133/75
[2017-10-08 03:27] LABS: TROPONIN I 0.911 ng/mL (0.000-0.045)
[2017-10-08 05:03] VITALS: BP 106/66
[2017-10-08] MEDS: HEPARIN 5,000 UNITS/ML, 1ML IV PRN ×2 (06:13→15:08)
[2017-10-08 07:52] VITALS: BP 127/76
[2017-10-08 07:58] LABS: ALBUMIN 2.9 g/dL (3.4-5.0); ANION GAP 10 mmol/L (5-15); CALCIUM 8.2 mg/dL (8.5-10.1); CHLORIDE 115 mmol/L (98-107); CREATININE 0.46 mg/dL (0.55-1.02)
[2017-10-08 08:01] LABS: TROPONIN I 0.834 ng/mL (0.000-0.045)
[2017-10-08] MEDS ORDERED: HYDROCHLOROTHIAZIDE 25 MG TABLET PO SCH (09:00)
[2017-10-08 09:41] VITALS: BP 125/75
[2017-10-08] MEDS: CARVEDILOL 25 MG TABLET PO SCH ×2 (09:42→20:55)
[2017-10-08] MEDS: OMEPRAZOLE 20 MG CAPSULE.DR PO SCH (09:42)
[2017-10-08] MEDS: ASPIRIN 81 MG TABLET EC PO SCH (09:42)
[2017-10-08] MEDS: LISINOPRIL 5 MG TABLET PO SCH ×2 (09:42→20:52)
[2017-10-08] MEDS: CLOPIDOGREL 75 MG TABLET PO SCH (09:42)
[2017-10-08] MEDS ORDERED: MAGNESIUM SULF. PMX 20GM/500ML 100 ML IV ONE (10:00)
[2017-10-08] MEDS ORDERED: POTASSIUM CHLORIDE 20 MEQ TAB.ER.PRT PO ONE (10:00)
[2017-10-08 15:00] VITALS: BP 131/76
[2017-10-08] MEDS ORDERED: MAGNESIUM SULFATE PMX 2GM/50ML 50 ML IV ONE (16:30)
[2017-10-08] MEDS: D5%-0.45% NACL 1,000 ML IV SCH (17:49)
[2017-10-08 18:57] VITALS: BP 150/85
[2017-10-08] MEDS: morphine SULFATE 10 MG/ML, 1ML IVPush PRN (20:50)
[2017-10-08] MEDS: QUETIAPINE 25MG TABLET PO SCH (20:52)
[2017-10-08] MEDS: ATORVASTATIN 40 MG TABLET PO SCH (20:55)
[2017-10-09 02:49] VITALS: BP 112/67
[2017-10-09] MEDS: ASPIRIN 81 MG TABLET EC PO SCH (05:51)
[2017-10-09] MEDS: D5%-0.45% NACL 1,000 ML IV SCH (05:52)
[2017-10-09 06:47] LABS: ALBUMIN 2.9 g/dL (3.4-5.0); ANION GAP 9 mmol/L (5-15); CHLORIDE 106 mmol/L (98-107); CREATININE 0.42 mg/dL (0.55-1.02)
[2017-10-09 08:14] VITALS: BP 121/70
[2017-10-09] MEDS: morphine SULFATE 10 MG/ML, 1ML IVPush PRN (09:11)
[2017-10-09] MEDS: CARVEDILOL 25 MG TABLET PO SCH ×2 (09:11→20:39)
[2017-10-09] MEDS: CLOPIDOGREL 75 MG TABLET PO SCH (09:11)
[2017-10-09] MEDS: LISINOPRIL 5 MG TABLET PO SCH ×2 (09:11→20:39)
[2017-10-09] MEDS: OMEPRAZOLE 20 MG CAPSULE.DR PO SCH (09:11)
[2017-10-09 13:07] VITALS: BP 95/58
[2017-10-09 19:33] VITALS: BP 137/79
[2017-10-09] MEDS: ATORVASTATIN 40 MG TABLET PO SCH (20:39)
[2017-10-09] MEDS: QUETIAPINE 25MG TABLET PO SCH (20:40)
[2017-10-10 00:29] VITALS: BP 106/62
[2017-10-10] MEDS: ASPIRIN 81 MG TABLET EC PO SCH (06:02)
[2017-10-10 07:25] VITALS: BP 120/66
[2017-10-10] MEDS: LISINOPRIL 5 MG TABLET PO SCH (08:28)
[2017-10-10] MEDS: OMEPRAZOLE 20 MG CAPSULE.DR PO SCH (08:28)
[2017-10-10] MEDS: CLOPIDOGREL 75 MG TABLET PO SCH (08:28)
[2017-10-10] MEDS: CARVEDILOL 25 MG TABLET PO SCH (08:28)
[2017-10-10 13:49] VITALS: BP 113/68
== END 2017-10-10 14:29 | disposition home or self-care (01) | DRG 280 ==
LOC: ED 20:31 → EDIP 20:35 → 5SO 21:45 → DCLOUNGE 10-10 14:09
PROVIDERS: ADMIT Hospitalist; ATTEND Hospitalist
DX: I21.4 Non-ST elevation (NSTEMI) myocardial infarction (principal); J96.00 Acute respiratory failure, unspecified whether with hypoxia or hypercapnia; E87.0 Hyperosmolality and hypernatremia; J18.9 Pneumonia, unspecified organism; E78.5 Hyperlipidemia, unspecified; E83.42 Hypomagnesemia; E87.6 Hypokalemia; I11.9 Hypertensive heart disease without heart failure; Z96.643 Presence of artificial hip joint, bilateral; Y90.8 Blood alcohol level of 240 mg/100 ml or more; F10.20 Alcohol dependence, uncomplicated; M16.10 Unilateral primary osteoarthritis, unspecified hip; I25.10 Atherosclerotic heart disease of native coronary artery without angina pectoris; Z59.0 Homelessness; Z79.82 Long term (current) use of aspirin; Z83.3 Family history of diabetes mellitus; Z87.01 Personal history of pneumonia (recurrent); Z91.14 Patient's other noncompliance with medication regimen; Z91.19 Patient's noncompliance with other medical treatment and regimen; I25.2 Old myocardial infarction; Z95.5 Presence of coronary angioplasty implant and graft; Z90.49 Acquired absence of other specified parts of digestive tract; Z91.041 Radiographic dye allergy status; Z87.81 Personal history of (healed) traumatic fracture
CPT/HCPCS: 36415; 71045; 80048; 82040; 83735; 84100; 84484; 85025; 85520; 85610; 85730; 93005; 99291; J1644; J2270; J3475

== ENCOUNTER 2017-11-23 21:41 | Inpatient (IN) | payer MEDICAID, OTHER ==
[~2017-11-23] VITALS: Ht 167.6 cm; Wt 66.2 kg
[~2017-11-23 21:41] MED LIST changes: -CLOPIDOGREL 75 MG TABLET PO ONE
[2017-11-23] MEDS ORDERED: ASPIRIN 81 MG TABLET CHEW PO ONE (22:30)
[2017-11-23] MEDS ORDERED: ACETAMINOPHEN 325 MG TABLET PO ONE (22:30)
[2017-11-23] MEDS ORDERED: SODIUM CHLORIDE FLUSH 10ML SYR IVF ONE (22:30)
[2017-11-23 22:34] LABS: BASOPHILS # (AUTO) 0.01 x10^3/uL (0-0.1); BASOPHILS % (AUTO) 0 % (0-1); EOSINOPHILS # (AUTO) 0.26 x10^3/uL (0-0.4); EOSINOPHILS % (AUTO) 5 % (1-7); LYMPHOCYTES # (AUTO) 2.24 x10^3/uL (1-3.4); LYMPHOCYTES % (AUTO) 45 % (22-44); MD NO; MEAN CORPUSCULAR HEMOGLOBIN 27.8 pg (27.0-34.8); MEAN CORPUSCULAR HGB CONC 32.2 g/dL (32.4-35.8); MEAN CORPUSCULAR VOLUME 86.3 fL (80-100); MEAN PLATELET VOLUME 7.5 fL (7.4-10.4); MONOCYTES # (AUTO) 0.43 x10^3/uL (0.2-0.8); MONOCYTES % (AUTO) 9 % (2-9); NEUTROPHILS # (AUTO) 2.03 x10^3/uL (1.8-6.8); NEUTROPHILS % (AUTO) 41 % (42-75); PLATELET COUNT 212 x10^3/uL (130-400); RED BLOOD COUNT 3.36 x10^6/uL (3.82-5.3); RED CELL DISTRIBUTION WIDTH 20.2 % (9.6-15.2)
[2017-11-23] MEDS ORDERED: ASPIRIN 81 MG TABLET CHEW ONE (22:35)
[2017-11-23] MEDS ORDERED: ACETAMINOPHEN 325 MG TABLET ONE (22:35)
[2017-11-23 22:41] LABS: INTERNATIONAL NORMALIZED RATIO 1.06 (0.93-1.1)
[2017-11-23 22:43] LABS: ALANINE AMINOTRANSFERASE 53 U/L (12-78); ALBUMIN 3.4 g/dL (3.4-5.0); ANION GAP 9 mmol/L (5-15); CALCIUM 7.8 mg/dL (8.5-10.1); CHLORIDE 113 mmol/L (98-107); CREATININE 0.72 mg/dL (0.55-1.02)
[2017-11-23 22:47] LABS: ALKALINE PHOSPHATASE 126 U/L (45-117); BILIRUBIN,TOTAL 0.3 mg/dL (0.2-1.0); TOTAL PROTEIN 7.8 g/dL (6.4-8.2)
[2017-11-23 22:58] LABS: TROPONIN I 0.187 ng/mL (0.000-0.045)
[2017-11-23] MEDS ORDERED: HEPARIN 5,000 UNITS/ML, 1ML ONE (23:28)
[2017-11-23] MEDS ORDERED: HEPARIN 25,000 UNITS/500ML PMX 500 ML ONE (23:28)
[2017-11-23] MEDS ORDERED: NITROGLYCERIN OINT 2%, 1GM TP ONE ×2 (23:28→23:30)
[2017-11-23] MEDS ORDERED: HEPARIN 25,000 UNITS/500ML PMX 500 ML IV PRN (23:30)
[2017-11-23] MEDS ORDERED: HEPARIN 5,000 UNITS/ML, 1ML IV ONE (23:30)
[2017-11-24 00:58] VITALS: BP 129/76
[2017-11-24] MEDS ORDERED: PROMETHAZINE 25 MG/ML, 1ML IM PRN (01:00)
[2017-11-24] MEDS ORDERED: NITROGLYCERIN 0.4 MG BOTTLE (25 TABS) SL PRN (01:00)
[2017-11-24] MEDS ORDERED: morphine SULFATE 10 MG/ML, 1ML IVPush PRN (01:00)
[2017-11-24] MEDS ORDERED: BISACODYL 10 MG SUPP PR PRN (01:00)
[2017-11-24] MEDS ORDERED: LORazepam 1MG TABLET PO PRN ×3 (01:00)
[2017-11-24] MEDS ORDERED: ONDANSETRON ODT 4 MG PO PRN (01:00)
[2017-11-24] MEDS ORDERED: ENALAPRILAT 1.25 MG/ML, 2ML IVPush PRN (01:00)
[2017-11-24] MEDS ORDERED: POTASSIUM CHLORIDE 20 MEQ TAB.ER.PRT PO ONE (01:00)
[2017-11-24] MEDS ORDERED: POLYETHYLENE GLYCOL 17 GM PACKET PO PRN (01:00)
[2017-11-24] MEDS ORDERED: ONDANSETRON 2MG/ML, 2ML IVPush PRN (01:00)
[2017-11-24] MEDS ORDERED: LORazepam 0.5MG TABLET PO PRN (01:00)
[2017-11-24] MEDS ORDERED: OXYcodone IR 5MG TABLET PO PRN (01:00)
[2017-11-24] MEDS ORDERED: LORazepam 2 MG/ML, 1ML IV PRN ×5 (01:00)
[2017-11-24] MEDS ORDERED: DOCUSATE 100 MG CAPSULE PO PRN (01:00)
[2017-11-24] MEDS ORDERED: HEPARIN 25,000 UNITS/500ML PMX 500 ML IV PRN (01:30)
[2017-11-24] MEDS: ASPIRIN 81 MG TABLET EC PO SCH ×2 (01:48→06:05)
[2017-11-24] MEDS: CLOPIDOGREL 75 MG TABLET PO SCH ×2 (01:49→09:26)
[2017-11-24] MEDS: ATORVASTATIN 40 MG TABLET PO SCH ×2 (01:49→20:36)
[2017-11-24] MEDS: METOPROLOL TARTRATE 25 MG TABLET PO SCH ×3 (01:50→17:22)
[2017-11-24 02:01] LABS: FREE T4 (FREE THYROXINE) 0.96 ng/dL (0.76-1.46); THYROID STIMULATING HORMONE 0.638 mIU/L (0.358-3.740)
[2017-11-24] MEDS: SODIUM CHLORIDE 0.9% 1,000 ML IV SCH ×2 (02:01→10:01)
[2017-11-24 03:56] VITALS: BP 144/78
[2017-11-24 04:01] LABS: BASOPHILS # (AUTO) 0.04 x10^3/uL (0-0.1); BASOPHILS % (AUTO) 1 % (0-1); EOSINOPHILS # (AUTO) 0.41 x10^3/uL (0-0.4); EOSINOPHILS % (AUTO) 8 % (1-7); LYMPHOCYTES # (AUTO) 2.23 x10^3/uL (1-3.4); LYMPHOCYTES % (AUTO) 45 % (22-44); MD NO; MEAN CORPUSCULAR HGB CONC 32.5 g/dL (32.4-35.8); MEAN CORPUSCULAR VOLUME 86.1 fL (80-100); MEAN PLATELET VOLUME 7.9 fL (7.4-10.4); MONOCYTES # (AUTO) 0.58 x10^3/uL (0.2-0.8); MONOCYTES % (AUTO) 12 % (2-9); NEUTROPHILS # (AUTO) 1.65 x10^3/uL (1.8-6.8); NEUTROPHILS % (AUTO) 34 % (42-75); PLATELET COUNT 184 x10^3/uL (130-400); RED BLOOD COUNT 3.03 x10^6/uL (3.82-5.3); RED CELL DISTRIBUTION WIDTH 19.9 % (9.6-15.2)
[2017-11-24 04:10] LABS: ALANINE AMINOTRANSFERASE 44 U/L (12-78); ALBUMIN 3.1 g/dL (3.4-5.0); ANION GAP 10 mmol/L (5-15); CALCIUM 7.3 mg/dL (8.5-10.1); CHLORIDE 117 mmol/L (98-107)
[2017-11-24 04:15] LABS: ALKALINE PHOSPHATASE 109 U/L (45-117); BILIRUBIN,TOTAL 0.4 mg/dL (0.2-1.0); CHOL/HDL RATIO 1.6; CHOLESTEROL, TOTAL 137 mg/dL (140-239); CREATININE 0.53 mg/dL (0.55-1.02); HDL CHOL % 63 % (28-40); HDL CHOLESTEROL (DIRECT) 86 mg/dL (40-60); LDL CHOLESTEROL,CALCULATED 44 mg/dL (54-169); LDL/HDL RATIO 0.5 (0.5-3.0); TOTAL PROTEIN 7.1 g/dL (6.4-8.2); TRIGLYCERIDES 33 mg/dL (50-200); TROPONIN I 0.198 ng/mL (0.000-0.045); VLDL CHOLESTEROL 7 mg/dL (0-25)
[2017-11-24] MEDS: HEPARIN 5,000 UNITS/ML, 1ML IV PRN ×3 (06:36→20:43)
[2017-11-24 07:56] LABS: MICROSCOPIC AUTO
[2017-11-24 08:00] VITALS: BP 154/83
[2017-11-24 08:13] LABS: CULTURE INDICATED? YES
[2017-11-24] MEDS: MULTIVITAMINS/MINERALS TABLET PO SCH (09:26)
[2017-11-24] MEDS: ACETAMINOPHEN 325 MG TABLET PO PRN ×2 (09:26→17:22)
[2017-11-24] MEDS: LISINOPRIL 10 MG TABLET PO SCH (09:26)
[2017-11-24] MEDS: LORazepam 1MG TABLET PO PRN ×2 (09:26→13:44)
[2017-11-24 09:42] LABS: TROPONIN I 0.205 ng/mL (0.000-0.045)
[2017-11-24 14:57] VITALS: BP 173/93
[2017-11-24 15:36] VITALS: BP 162/85
[2017-11-24 19:25] VITALS: BP 160/91
[2017-11-24] MEDS: LABETALOL 5MG/ML, 20ML IVPush PRN (20:37)
[2017-11-25 01:20] VITALS: BP 138/75
[2017-11-25] MEDS: METOPROLOL TARTRATE 25 MG TABLET PO SCH ×2 (05:30→18:39)
[2017-11-25] MEDS: ASPIRIN 81 MG TABLET EC PO SCH (05:30)
[2017-11-25] MEDS ORDERED: REGADENOSON 0.4 MG/5 ML SYRINGE ONE (08:02)
[2017-11-25 08:10] VITALS: BP 149/88
[2017-11-25] MEDS: MULTIVITAMINS/MINERALS TABLET PO SCH (10:22)
[2017-11-25] MEDS: LISINOPRIL 10 MG TABLET PO SCH (10:22)
[2017-11-25] MEDS: CLOPIDOGREL 75 MG TABLET PO SCH (10:22)
[2017-11-25 12:28] LABS: CHLORIDE 108 mmol/L (98-107)
[2017-11-25 12:34] LABS: ALANINE AMINOTRANSFERASE 35 U/L (12-78); ALKALINE PHOSPHATASE 101 U/L (45-117); ANION GAP 6 mmol/L (5-15); BILIRUBIN,TOTAL 0.9 mg/dL (0.2-1.0); CALCIUM 7.5 mg/dL (8.5-10.1); CREATININE 0.47 mg/dL (0.55-1.02); TOTAL PROTEIN 7.1 g/dL (6.4-8.2)
[2017-11-25 13:07] VITALS: BP 147/89
[2017-11-25] MEDS ORDERED: POTASSIUM CHLORIDE 20 MEQ PACKET PO ONE (17:30)
[2017-11-25 19:37] VITALS: BP 166/96
[2017-11-25] MEDS: ATORVASTATIN 40 MG TABLET PO SCH (19:47)
[2017-11-25 19:56] VITALS: BP 188/105
[2017-11-25] MEDS: LABETALOL 5MG/ML, 20ML IVPush PRN (19:56)
[2017-11-25 22:00] VITALS: BP 145/69
[2017-11-26 00:40] VITALS: BP 97/68
[2017-11-26 05:08] VITALS: BP 165/93
[2017-11-26] MEDS: ASPIRIN 81 MG TABLET EC PO SCH (05:15)
[2017-11-26] MEDS: METOPROLOL TARTRATE 25 MG TABLET PO SCH (05:15)
[2017-11-26 05:24] LABS: BASOPHILS # (AUTO) 0.02 x10^3/uL (0-0.1); BASOPHILS % (AUTO) 0 % (0-1); EOSINOPHILS # (AUTO) 0.48 x10^3/uL (0-0.4); EOSINOPHILS % (AUTO) 9 % (1-7); LYMPHOCYTES # (AUTO) 1.33 x10^3/uL (1-3.4); LYMPHOCYTES % (AUTO) 26 % (22-44); MD NO; MEAN CORPUSCULAR HEMOGLOBIN 27.8 pg (27.0-34.8); MEAN CORPUSCULAR HGB CONC 32.3 g/dL (32.4-35.8); MEAN CORPUSCULAR VOLUME 85.9 fL (80-100); MEAN PLATELET VOLUME 7.9 fL (7.4-10.4); MONOCYTES # (AUTO) 0.52 x10^3/uL (0.2-0.8); MONOCYTES % (AUTO) 10 % (2-9); NEUTROPHILS # (AUTO) 2.86 x10^3/uL (1.8-6.8); NEUTROPHILS % (AUTO) 55 % (42-75); PLATELET COUNT 181 x10^3/uL (130-400); RED CELL DISTRIBUTION WIDTH 20.9 % (9.6-15.2)
[2017-11-26 05:28] LABS: ALBUMIN 3.1 g/dL (3.4-5.0); ANION GAP 8 mmol/L (5-15); CALCIUM 7.6 mg/dL (8.5-10.1); CHLORIDE 105 mmol/L (98-107)
[2017-11-26 05:30] LABS: CREATININE 0.41 mg/dL (0.55-1.02)
[2017-11-26 06:24] VITALS: BP 137/56
[2017-11-26 07:00] VITALS: BP 145/84
[2017-11-26] MEDS: MULTIVITAMINS/MINERALS TABLET PO SCH (08:41)
[2017-11-26] MEDS: LISINOPRIL 10 MG TABLET PO SCH (08:41)
[2017-11-26] MEDS: CLOPIDOGREL 75 MG TABLET PO SCH (08:41)
[2017-11-26] MEDS ORDERED: MAGNESIUM OXIDE 400 MG TABLET PO ONE (09:00)
[2017-11-26] MEDS ORDERED: NITR0.4T SL (10:42)
[2017-11-26] MEDS ORDERED: ASPI-621 PO (10:42)
[2017-11-26] MEDS ORDERED: ATOR40TA78 PO (10:42)
[2017-11-26] MEDS ORDERED: LISI-167 PO (10:42)
[2017-11-26] MEDS ORDERED: METO25TA35 PO (10:42)
[2017-11-26] MEDS ORDERED: CLOP75TA PO (10:42)
[2017-11-26] MEDS ORDERED: MECLIZINE 12.5 MG TABLET PO ONE (12:30)
[2017-11-26 12:54] VITALS: BP 152/84
[2017-11-26] MEDS: ACETAMINOPHEN 325 MG TABLET PO PRN (13:15)
== END 2017-11-26 15:17 | disposition home or self-care (01) | DRG 896 ==
LOC: ED 23:07 → EDIP 23:28 → 5SO 11-24 00:30
PROVIDERS: ADMIT Internal Medicine; ATTEND Internal Medicine
DX: F10.129 Alcohol abuse with intoxication, unspecified (principal); I21.4 Non-ST elevation (NSTEMI) myocardial infarction; E46 Unspecified protein-calorie malnutrition; I25.110 Atherosclerotic heart disease of native coronary artery with unstable angina pectoris; R07.89 Other chest pain; E78.5 Hyperlipidemia, unspecified; Z96.643 Presence of artificial hip joint, bilateral; I10 Essential (primary) hypertension; M19.90 Unspecified osteoarthritis, unspecified site; M25.551 Pain in right hip; G89.29 Other chronic pain; E87.6 Hypokalemia; D64.9 Anemia, unspecified; Z59.0 Homelessness; Z79.82 Long term (current) use of aspirin; Z79.899 Other long term (current) drug therapy; Z87.891 Personal history of nicotine dependence; Z91.041 Radiographic dye allergy status; Z91.14 Patient's other noncompliance with medication regimen; Z95.5 Presence of coronary angioplasty implant and graft; Z90.49 Acquired absence of other specified parts of digestive tract; Z68.23 Body mass index [BMI] 23.0-23.9, adult
CPT/HCPCS: 36415; 71045; 72192; 78452; 80053; 80061; 80069; 80307; 81001; 83036; 83735; 84439; 84443; 84484; 85025; 85520; 85610; 85730; 87086; 87147; 93005; 93017; 96374; J1644; J2785; A9502; C9898; J7030

== ENCOUNTER 2017-12-11 18:27 | Emergency (ER) | payer MEDICAID ==
[~2017-12-11] VITALS: Ht 152.4 cm; Wt 62.0 kg
[~2017-12-11 18:27] MED LIST changes: +NITR0.4T SL
[2017-12-11 18:47] LABS: BASOPHILS # (AUTO) 0.08 x10^3/uL (0-0.1); BASOPHILS % (AUTO) 1 % (0-1); EOSINOPHILS # (AUTO) 0.22 x10^3/uL (0-0.4); EOSINOPHILS % (AUTO) 2 % (1-7); LYMPHOCYTES # (AUTO) 2.59 x10^3/uL (1-3.4); LYMPHOCYTES % (AUTO) 26 % (22-44); MD NO; MEAN CORPUSCULAR HEMOGLOBIN 27.1 pg (27.0-34.8); MEAN CORPUSCULAR HGB CONC 32.2 g/dL (32.4-35.8); MEAN PLATELET VOLUME 8.2 fL (7.4-10.4); MONOCYTES # (AUTO) 0.49 x10^3/uL (0.2-0.8); MONOCYTES % (AUTO) 5 % (2-9); NEUTROPHILS # (AUTO) 6.71 x10^3/uL (1.8-6.8); NEUTROPHILS % (AUTO) 67 % (42-75); PLATELET COUNT 458 x10^3/uL (130-400); RED BLOOD COUNT 3.79 x10^6/uL (3.82-5.3); RED CELL DISTRIBUTION WIDTH 20.7 % (9.6-15.2)
[2017-12-11 18:58] LABS: ALANINE AMINOTRANSFERASE 44 U/L (12-78); ALBUMIN 3.7 g/dL (3.4-5.0); ANION GAP 14 mmol/L (5-15); CALCIUM 8.2 mg/dL (8.5-10.1); CHLORIDE 116 mmol/L (98-107); CREATININE 1.66 mg/dL (0.55-1.02)
[2017-12-11] MEDS ORDERED: PLEASE ENTER HEIGHT AND WEIGHT MC SCH (19:00)
[2017-12-11] MEDS ORDERED: SODIUM CHLORIDE 0.9% 1,000ML IVBOLUS ONE (19:00)
[2017-12-11 19:02] LABS: ALKALINE PHOSPHATASE 99 U/L (45-117); BILIRUBIN,TOTAL 0.4 mg/dL (0.2-1.0); TOTAL PROTEIN 8.1 g/dL (6.4-8.2)
[2017-12-11] MEDS ORDERED: ACETAMINOPHEN 500 MG TABLET PO ONE (20:00)
[2017-12-11] MEDS ORDERED: ACETAMINOPHEN 500 MG TABLET ONE (20:06)
[2017-12-11 22:42] VITALS: BP 82/41
== END 2017-12-12 00:44 | disposition home or self-care (01) ==
LOC: ED 20:54
DX: F10.229 Alcohol dependence with intoxication, unspecified (principal); I95.9 Hypotension, unspecified; E78.5 Hyperlipidemia, unspecified; I25.2 Old myocardial infarction; I10 Essential (primary) hypertension; L40.9 Psoriasis, unspecified; R51 Headache; R07.9 Chest pain, unspecified; Z91.041 Radiographic dye allergy status; Z79.899 Other long term (current) drug therapy
CPT/HCPCS: 36415; 70450; 71045; 72125; 80053; 80307; 85025; 93005; 96360; 99285; J7030

== ENCOUNTER 2017-12-12 23:38 | Inpatient (IN) | payer MEDICAID ==
[~2017-12-12] VITALS: Ht 154.9 cm; Wt 62.2 kg
[2017-12-13 00:30] LABS: BASOPHILS # (AUTO) 0.07 x10^3/uL (0-0.1); BASOPHILS % (AUTO) 1 % (0-1); EOSINOPHILS # (AUTO) 0.14 x10^3/uL (0-0.4); EOSINOPHILS % (AUTO) 1 % (1-7); LYMPHOCYTES # (AUTO) 4.86 x10^3/uL (1-3.4); LYMPHOCYTES % (AUTO) 47 % (22-44); MD NO; MEAN CORPUSCULAR HEMOGLOBIN 27.1 pg (27.0-34.8); MEAN CORPUSCULAR VOLUME 84.6 fL (80-100); MEAN PLATELET VOLUME 8.1 fL (7.4-10.4); MONOCYTES # (AUTO) 0.62 x10^3/uL (0.2-0.8); MONOCYTES % (AUTO) 6 % (2-9); NEUTROPHILS # (AUTO) 4.66 x10^3/uL (1.8-6.8); NEUTROPHILS % (AUTO) 45 % (42-75); PLATELET COUNT 405 x10^3/uL (130-400); RED BLOOD COUNT 3.66 x10^6/uL (3.82-5.3); RED CELL DISTRIBUTION WIDTH 20.2 % (9.6-15.2)
[2017-12-13 00:38] LABS: ANION GAP 11 mmol/L (5-15); CALCIUM 8.6 mg/dL (8.5-10.1); CHLORIDE 117 mmol/L (98-107); CREATININE 1.05 mg/dL (0.55-1.02)
[2017-12-13 00:39] LABS: ALBUMIN 3.6 g/dL (3.4-5.0)
[2017-12-13 00:46] LABS: TROPONIN I 0.245 ng/mL (0.000-0.045)
[2017-12-13 03:08] LABS: TROPONIN I 0.252 ng/mL (0.000-0.045)
[2017-12-13] MEDS ORDERED: ASPIRIN 81 MG TABLET CHEW PO ONE (03:30)
[2017-12-13] MEDS ORDERED: ASPIRIN 81 MG TABLET CHEW ONE (03:40)
[2017-12-13] MEDS ORDERED: SODIUM CHLORIDE 0.9% 1,000 ML IV SCH (05:10)
[2017-12-13 05:22] VITALS: BP 129/72
[2017-12-13] MEDS ORDERED: hydrALAzine 20 MG/ML, 1ML IVPush PRN (05:30)
[2017-12-13] MEDS ORDERED: HEPARIN 25,000 UNITS/500ML PMX 500 ML IV PRN (05:30)
[2017-12-13] MEDS ORDERED: ACETAMINOPHEN 325 MG TABLET PO PRN (05:30)
[2017-12-13] MEDS ORDERED: ONDANSETRON 2MG/ML, 2ML IVPush PRN (05:30)
[2017-12-13] MEDS ORDERED: HEPARIN 5,000 UNITS/ML, 1ML IV ONE (05:30)
[2017-12-13 05:35] VITALS: BP 129/72
[2017-12-13] MEDS: NITROGLYCERIN 0.4 MG BOTTLE (25 TABS) SL PRN ×3 (05:46→06:05)
[2017-12-13] MEDS: METOPROLOL TARTRATE 25 MG TABLET PO SCH ×2 (06:04→18:26)
[2017-12-13] MEDS: ASPIRIN 325 MG TABLET EC PO SCH (06:04)
[2017-12-13] MEDS: morphine SULFATE 10 MG/ML, 1ML IVPush PRN ×3 (06:24→20:58)
[2017-12-13 07:53] VITALS: BP 119/72
[2017-12-13] MEDS ORDERED: LISINOPRIL 10 MG TABLET PO SCH (09:00)
[2017-12-13] MEDS: FAMOTIDINE 20 MG/2 ML IVPush SCH ×2 (09:00→20:57)
[2017-12-13 09:22] LABS: TROPONIN I 0.233 ng/mL (0.000-0.045)
[2017-12-13] MEDS: CLOPIDOGREL 75 MG TABLET PO SCH (09:30)
[2017-12-13] MEDS: POLYETHYLENE GLYCOL 17 GM PACKET PO SCH (09:32)
[2017-12-13 12:59] LABS: TROPONIN I 0.234 ng/mL (0.000-0.045)
[2017-12-13] MEDS: HEPARIN 5,000 UNITS/ML, 1ML IV PRN ×2 (13:43→20:58)
[2017-12-13 14:00] VITALS: BP 136/79
[2017-12-13 19:21] VITALS: BP 164/75
[2017-12-13] MEDS ORDERED: FAMOTIDINE 20 MG TABLET ONE (20:43)
[2017-12-13] MEDS ORDERED: ATORVASTATIN 40 MG TABLET PO SCH (21:00)
[2017-12-13 21:08] VITALS: BP 176/95
[2017-12-13] MEDS: LISINOPRIL 10 MG TABLET PO SCH (22:51)
[2017-12-14 00:29] VITALS: BP 176/94
[2017-12-14 02:00] VITALS: BP 182/93
[2017-12-14 03:28] LABS: ALANINE AMINOTRANSFERASE 40 U/L (12-78); ALBUMIN 3.3 g/dL (3.4-5.0); ANION GAP 8 mmol/L (5-15); CALCIUM 8.5 mg/dL (8.5-10.1); CHLORIDE 113 mmol/L (98-107); CREATININE 0.71 mg/dL (0.55-1.02)
[2017-12-14 03:31] LABS: ALKALINE PHOSPHATASE 92 U/L (45-117); BILIRUBIN,TOTAL 0.8 mg/dL (0.2-1.0); CHOL/HDL RATIO 1.6; CHOLESTEROL, TOTAL 112 mg/dL (140-239); HDL CHOL % 62 % (28-40); HDL CHOLESTEROL (DIRECT) 69 mg/dL (40-60); LDL CHOLESTEROL,CALCULATED 31 mg/dL (54-169); LDL/HDL RATIO 0.4 (0.5-3.0); TOTAL PROTEIN 7.5 g/dL (6.4-8.2); TRIGLYCERIDES 58 mg/dL (50-200); VLDL CHOLESTEROL 12 mg/dL (0-25)
[2017-12-14 03:35] LABS: BASOPHILS # (AUTO) 0.03 x10^3/uL (0-0.1); BASOPHILS % (AUTO) 1 % (0-1); EOSINOPHILS % (AUTO) 7 % (1-7); LYMPHOCYTES # (AUTO) 1.71 x10^3/uL (1-3.4); LYMPHOCYTES % (AUTO) 32 % (22-44); MD NO; MEAN CORPUSCULAR HEMOGLOBIN 27.4 pg (27.0-34.8); MEAN CORPUSCULAR HGB CONC 32.4 g/dL (32.4-35.8); MEAN CORPUSCULAR VOLUME 84.5 fL (80-100); MEAN PLATELET VOLUME 8.4 fL (7.4-10.4); MONOCYTES # (AUTO) 0.59 x10^3/uL (0.2-0.8); MONOCYTES % (AUTO) 11 % (2-9); NEUTROPHILS # (AUTO) 2.71 x10^3/uL (1.8-6.8); NEUTROPHILS % (AUTO) 50 % (42-75); PLATELET COUNT 260 x10^3/uL (130-400); RED BLOOD COUNT 3.54 x10^6/uL (3.82-5.3); RED CELL DISTRIBUTION WIDTH 21.1 % (9.6-15.2)
[2017-12-14] MEDS: METOPROLOL TARTRATE 25 MG TABLET PO SCH (05:08)
[2017-12-14] MEDS: ASPIRIN 325 MG TABLET EC PO SCH (05:09)
[2017-12-14 05:10] VITALS: BP 137/82
[2017-12-14] MEDS ORDERED: SODIUM CHLORIDE 0.9% 1,000 ML IV SCH (05:10)
[2017-12-14 06:50] VITALS: BP 155/82
[2017-12-14] MEDS: FAMOTIDINE 20 MG/2 ML IVPush SCH (08:16)
[2017-12-14] MEDS: LISINOPRIL 10 MG TABLET PO SCH (08:17)
[2017-12-14] MEDS: CLOPIDOGREL 75 MG TABLET PO SCH (08:17)
[2017-12-14] MEDS: POLYETHYLENE GLYCOL 17 GM PACKET PO SCH (08:17)
[2017-12-14] MEDS ORDERED: AMLODIPINE 2.5 MG TABLET PO SCH (09:30)
[2017-12-14] MEDS ORDERED: MAGNESIUM SULFATE PMX 2GM/50ML 50 ML IV ONE ×2 (12:00)
[2017-12-14] MEDS ORDERED: LISI-167 PO (12:04)
[2017-12-14] MEDS ORDERED: AMLO2.5T PO (12:04)
[2017-12-14] MEDS ORDERED: ASPI-650 PO (12:04)
[2017-12-14] MEDS ORDERED: MAGN400T26 PO (12:09)
[2017-12-14 14:00] VITALS: BP 170/88
[2017-12-14] MEDS ORDERED: METOPROLOL TARTRATE 25 MG TABLET PO SCH (18:00)
== END 2017-12-14 16:57 | disposition home or self-care (01) | DRG 280 ==
LOC: ED 23:59 → EDIP 12-13 04:44 → 5SO 12-13 04:52 → DCLOUNGE 12-14 16:50
PROVIDERS: ADMIT Hospitalist; ATTEND Hospitalist
DX: I21.4 Non-ST elevation (NSTEMI) myocardial infarction (principal); N17.0 Acute kidney failure with tubular necrosis; E46 Unspecified protein-calorie malnutrition; E87.2 Acidosis; D64.9 Anemia, unspecified; D72.829 Elevated white blood cell count, unspecified; E78.5 Hyperlipidemia, unspecified; Z68.25 Body mass index [BMI] 25.0-25.9, adult; F10.220 Alcohol dependence with intoxication, uncomplicated; Z96.643 Presence of artificial hip joint, bilateral; I10 Essential (primary) hypertension; G89.29 Other chronic pain; I25.10 Atherosclerotic heart disease of native coronary artery without angina pectoris; M19.90 Unspecified osteoarthritis, unspecified site; W19.XXXA Unspecified fall, initial encounter; Z79.82 Long term (current) use of aspirin; Y93.89 Activity, other specified; Y92.89 Other specified places as the place of occurrence of the external cause; Z91.041 Radiographic dye allergy status; Z87.891 Personal history of nicotine dependence; Z91.14 Patient's other noncompliance with medication regimen; Z95.5 Presence of coronary angioplasty implant and graft
CPT/HCPCS: 36415; S0028; 70450; 71045; 80048; 80053; 80061; 80307; 82040; 83735; 84100; 84484; 85025; 85520; 93005; 93306; 99285; J1644; J2270; J3475; J7030

== ENCOUNTER 2018-02-07 18:15 | Inpatient (IN) | payer MEDICAID, OTHER ==
[~2018-02-07] VITALS: Ht 147.3 cm; Wt 66.7 kg
[~2018-02-07 18:15] MED LIST changes: +AMLO2.5T3 PO; +MAGN400T26 PO
[2018-02-07] MEDS ORDERED: ASPI-496 PO (18:29)
[2018-02-07] MEDS ORDERED: LISI-170 PO (18:29)
[2018-02-07] MEDS ORDERED: NAPR250T6 PO (18:29)
[2018-02-07] MEDS ORDERED: METO25TA35 PO (18:29)
[2018-02-07] MEDS ORDERED: ATOR-2 PO (18:29)
[2018-02-07] MEDS ORDERED: QUET25TA5 PO (18:29)
[2018-02-07] MEDS ORDERED: AMLO10TA6 PO (18:29)
[2018-02-07 19:12] LABS: MEAN CORPUSCULAR HEMOGLOBIN 25.7 pg (27.0-34.8); MEAN CORPUSCULAR HGB CONC 31.8 g/dL (32.4-35.8); MEAN CORPUSCULAR VOLUME 80.6 fL (80-100); MEAN PLATELET VOLUME 7.4 fL (7.4-10.4); PLATELET COUNT 345 x10^3/uL (130-400); RED BLOOD COUNT 3.73 x10^6/uL (3.82-5.3); RED CELL DISTRIBUTION WIDTH 21.9 % (9.6-15.2)
[2018-02-07 19:18] LABS: MD YES
[2018-02-07 19:23] LABS: ALBUMIN 3.6 g/dL (3.4-5.0); ANION GAP 11 mmol/L (5-15); CALCIUM 7.9 mg/dL (8.5-10.1); CHLORIDE 118 mmol/L (98-107); CREATININE 0.51 mg/dL (0.55-1.02)
[2018-02-07 19:28] LABS: TROPONIN I 0.106 ng/mL (0.000-0.045)
[2018-02-07 19:42] LABS: BASOS#(MANUAL) 0.07 x10^3/uL (0-0.1); BASOS% (MANUAL) 1 % (0-1); EOS#(MANUAL) 0.51 x10^3/uL (0.0-0.4); EOS% (MANUAL) 7 % (1-7); LYMPH#(MANUAL) 2.92 x10^3/uL (1-3.4); LYMPHS% (MANUAL) 40 % (22-44); MONOS#(MANUAL) 0.22 x10^3/uL (0.3-2.7); MONOS% (MANUAL) 3 % (2-9); SEG#(MANUAL) 3.58 x10^3/uL (1.8-6.8); SEGS% (MANUAL) 49 % (42-75)
[2018-02-07] MEDS ORDERED: ASPIRIN 81 MG TABLET CHEW ONE (19:43)
[2018-02-07 19:44] LABS: ANISOCYTOSIS 1+; HYPOCHROMIA 1+; MICROCYTOSIS 1+; OVALOCYTES 1+; POLYCHROMASIA 1+
[2018-02-07 19:45] LABS: <PLATELET ESTIMATE> ADEQUATE; <PLT MORPHOLOGY> NORMAL PLT MORPH
[2018-02-07] MEDS ORDERED: ASPIRIN 81 MG TABLET CHEW PO ONE (20:00)
[2018-02-07] MEDS ORDERED: LORazepam 2 MG/ML, 1ML IV PRN ×3 (20:30)
[2018-02-07] MEDS ORDERED: ONDANSETRON 2MG/ML, 2ML IVPush PRN (20:30)
[2018-02-07] MEDS ORDERED: OXYcodone IR 5MG TABLET PO PRN (20:30)
[2018-02-07] MEDS ORDERED: MORPHINE SULFATE 4 MG/ML, 1ML IVPush PRN (20:30)
[2018-02-07] MEDS ORDERED: LORazepam 1MG TABLET PO PRN (20:30)
[2018-02-07] MEDS ORDERED: LORazepam 0.5MG TABLET PO PRN (20:30)
[2018-02-07] MEDS ORDERED: POLYETHYLENE GLYCOL 17 GM PACKET PO PRN (20:30)
[2018-02-07] MEDS ORDERED: DOCUSATE 100 MG CAPSULE PO PRN (20:30)
[2018-02-07] MEDS ORDERED: METOPROLOL TARTRATE 25 MG TABLET ONE (20:39)
[2018-02-07] MEDS ORDERED: QUETIAPINE 25MG TABLET ONE (20:39)
[2018-02-07] MEDS ORDERED: FAMOTIDINE 20 MG TABLET ONE (20:39)
[2018-02-07] MEDS ORDERED: ENOXAPARIN 40 MG/0.4 ML ONE (20:39)
[2018-02-07] MEDS: QUETIAPINE 25MG TABLET PO SCH (21:07)
[2018-02-07] MEDS: ENOXAPARIN 40 MG/0.4 ML SQ SCH (21:07)
[2018-02-07] MEDS: FAMOTIDINE 20 MG TABLET PO SCH (21:07)
[2018-02-07] MEDS: METOPROLOL TARTRATE 25 MG TABLET PO SCH (21:07)
[2018-02-07] MEDS: ATORVASTATIN 80 MG TABLET PO SCH (21:07)
[2018-02-07] MEDS: D5%-0.45NACL+KCL 20MEQ 1,000 ML IV SCH (23:04)
[2018-02-08 05:33] LABS: CHLORIDE 120 mmol/L (98-107)
[2018-02-08 05:43] LABS: ANION GAP 9 mmol/L (5-15); CALCIUM 7.3 mg/dL (8.5-10.1); CHOL/HDL RATIO 1.7; CHOLESTEROL, TOTAL 124 mg/dL (140-239); CREATININE 0.42 mg/dL (0.55-1.02); HDL CHOL % 60 % (28-40); HDL CHOLESTEROL (DIRECT) 74 mg/dL (40-60); LDL CHOLESTEROL,CALCULATED 35 mg/dL (54-169); LDL/HDL RATIO 0.5 (0.5-3.0); TRIGLYCERIDES 74 mg/dL (50-200); TROPONIN I 0.114 ng/mL (0.000-0.045); VLDL CHOLESTEROL 15 mg/dL (0-25)
[2018-02-08] MEDS ORDERED: TEMPLATE NON-FORMULARY MED. (Aspirin** (Aspir 81**) 81 MG) PO SCH (09:00)
[2018-02-08] MEDS: SENNA/DOCUSATE TABLET PO SCH (09:00)
[2018-02-08] MEDS ORDERED: LISINOPRIL 20 MG TABLET PO SCH (09:00)
[2018-02-08] MEDS ORDERED: ASPIRIN 81 MG TABLET EC ONE (09:08)
[2018-02-08] MEDS ORDERED: AMLODIPINE 5 MG TABLET ONE (09:10)
[2018-02-08] MEDS ORDERED: FAMOTIDINE 20 MG TABLET ONE (09:10)
[2018-02-08] MEDS ORDERED: THIAMINE 100MG TABLET ONE (09:10)
[2018-02-08] MEDS ORDERED: METOPROLOL TARTRATE 25 MG TABLET ONE (09:10)
[2018-02-08] MEDS ORDERED: LISINOPRIL 10 MG TABLET ONE (09:10)
[2018-02-08] MEDS: METOPROLOL TARTRATE 25 MG TABLET PO SCH ×2 (09:22→20:24)
[2018-02-08] MEDS: THIAMINE 100MG TABLET PO SCH (09:22)
[2018-02-08] MEDS: FAMOTIDINE 20 MG TABLET PO SCH ×2 (09:22→20:24)
[2018-02-08] MEDS: AMLODIPINE 10 MG TAB PO SCH (09:23)
[2018-02-08] MEDS ORDERED: LISINOPRIL 10 MG TABLET PO SCH (10:36)
[2018-02-08 10:43] VITALS: BP 145/74
[2018-02-08] MEDS: MULTIVITAMINS/MINERALS TABLET PO SCH (11:08)
[2018-02-08] MEDS: FOLIC ACID 1 MG TABLET PO SCH (11:08)
[2018-02-08] MEDS: ASPIRIN 81 MG TABLET EC PO SCH (11:08)
[2018-02-08] MEDS: ACETAMINOPHEN 325 MG TABLET PO PRN ×2 (11:08→18:26)
[2018-02-08] MEDS: D5%-0.45NACL+KCL 20MEQ 1,000 ML IV SCH (11:50)
[2018-02-08] MEDS: MAGNESIUM SULFATE PMX 2GM/50ML 50 ML IV SCH ×2 (11:50→14:53)
[2018-02-08] MEDS ORDERED: LORA10TA3 PO (12:13)
[2018-02-08] MEDS ORDERED: LISI-170 PO (12:13)
[2018-02-08] MEDS ORDERED: METO25TA35 PO (12:13)
[2018-02-08] MEDS ORDERED: NAPR-685 PO (12:13)
[2018-02-08] MEDS ORDERED: QUET50TA PO (12:13)
[2018-02-08 14:59] VITALS: BP 119/69
[2018-02-08] MEDS: POTASSIUM CHLORIDE 20 MEQ in DEXTROSE 5% 1,000 ML IV SCH (18:11)
[2018-02-08] MEDS: ATORVASTATIN 80 MG TABLET PO SCH (20:23)
[2018-02-08] MEDS: ENOXAPARIN 40 MG/0.4 ML SQ SCH (20:24)
[2018-02-08] MEDS: QUETIAPINE 25MG TABLET PO SCH (20:24)
[2018-02-08 21:15] VITALS: BP 134/76
[2018-02-09 01:55] VITALS: BP 142/84
[2018-02-09 05:27] LABS: CHLORIDE 106 mmol/L (98-107)
[2018-02-09 05:36] LABS: ALANINE AMINOTRANSFERASE 27 U/L (12-78); ALBUMIN 3.1 g/dL (3.4-5.0); ALKALINE PHOSPHATASE 109 U/L (45-117); ANION GAP 8 mmol/L (5-15); BILIRUBIN,TOTAL 0.8 mg/dL (0.2-1.0); CALCIUM 7.7 mg/dL (8.5-10.1); TOTAL PROTEIN 7.8 g/dL (6.4-8.2)
[2018-02-09 05:42] LABS: BASOPHILS # (AUTO) 0.06 x10^3/uL (0-0.1); BASOPHILS % (AUTO) 1 % (0-1); EOSINOPHILS # (AUTO) 0.25 x10^3/uL (0-0.4); EOSINOPHILS % (AUTO) 5 % (1-7); LYMPHOCYTES # (AUTO) 1.76 x10^3/uL (1-3.4); LYMPHOCYTES % (AUTO) 34 % (22-44); MD NO; MEAN CORPUSCULAR HEMOGLOBIN 25.7 pg (27.0-34.8); MEAN CORPUSCULAR HGB CONC 31.9 g/dL (32.4-35.8); MEAN CORPUSCULAR VOLUME 80.4 fL (80-100); MONOCYTES # (AUTO) 0.99 x10^3/uL (0.2-0.8); MONOCYTES % (AUTO) 19 % (2-9); NEUTROPHILS # (AUTO) 2.15 x10^3/uL (1.8-6.8); NEUTROPHILS % (AUTO) 41 % (42-75); PLATELET COUNT 242 x10^3/uL (130-400); RED CELL DISTRIBUTION WIDTH 20.6 % (9.6-15.2)
[2018-02-09 06:36] VITALS: BP 146/70
[2018-02-09] MEDS: SENNA/DOCUSATE TABLET PO SCH (08:28)
[2018-02-09] MEDS: ASPIRIN 81 MG TABLET EC PO SCH (08:28)
[2018-02-09] MEDS: ACETAMINOPHEN 325 MG TABLET PO PRN (08:28)
[2018-02-09] MEDS: FAMOTIDINE 20 MG TABLET PO SCH (08:28)
[2018-02-09] MEDS: MULTIVITAMINS/MINERALS TABLET PO SCH (08:29)
[2018-02-09] MEDS: AMLODIPINE 10 MG TAB PO SCH (08:29)
[2018-02-09] MEDS: METOPROLOL TARTRATE 25 MG TABLET PO SCH (08:29)
[2018-02-09] MEDS: FOLIC ACID 1 MG TABLET PO SCH (08:29)
[2018-02-09] MEDS: THIAMINE 100MG TABLET PO SCH (08:29)
[2018-02-09] MEDS: POTASSIUM CHLORIDE 20 MEQ in DEXTROSE 5% 1,000 ML IV SCH (09:34)
[2018-02-09 13:46] VITALS: BP 131/72
[2018-02-09] MEDS ORDERED: AMLO2.5T3 PO (16:23)
[2018-02-09] MEDS ORDERED: QUET50TA PO (16:23)
[2018-02-09] MEDS ORDERED: METO25TA35 PO (16:23)
[2018-02-09] MEDS ORDERED: LISI-170 PO (16:23)
[2018-02-09] MEDS ORDERED: ASPI-621 PO (16:23)
[2018-02-09] MEDS ORDERED: ATOR40TA78 PO (16:23)
[2018-02-09] MEDS ORDERED: GUAI200T3 PO (16:26)
== END 2018-02-09 18:31 | disposition home or self-care (01) | DRG 313 ==
LOC: MERGE 18:15 → SUATTDRO 19:55 → ED 20:00 → EDIP 20:10 → 5SO 02-08 10:34
PROVIDERS: ADMIT Family Medicine; ATTEND Family Medicine
DX: R07.89 Other chest pain (principal); E87.0 Hyperosmolality and hypernatremia; I25.10 Atherosclerotic heart disease of native coronary artery without angina pectoris; E78.5 Hyperlipidemia, unspecified; F10.129 Alcohol abuse with intoxication, unspecified; D64.9 Anemia, unspecified; E87.6 Hypokalemia; E83.42 Hypomagnesemia; I10 Essential (primary) hypertension; Z95.5 Presence of coronary angioplasty implant and graft; Z79.899 Other long term (current) drug therapy; Z59.0 Homelessness; Z91.041 Radiographic dye allergy status
CPT/HCPCS: 36415; 71045; 80048; 80053; 80061; 82040; 83735; 83880; 84100; 84145; 84484; 85025; 93005; 99285; G0378; J1650; J3480; J7070; J3475

== ENCOUNTER 2018-02-25 20:47 | Emergency (ER) | payer MEDICAID ==
[~2018-02-25] VITALS: Ht 142.2 cm; Wt 63.0 kg
[~2018-02-25 20:47] MED LIST changes: +AMLO10TA6 PO; +ATOR-2 PO; +LISI-170 PO; +LORA10TA3 PO; +NAPR-685 PO; +QUET25TA5 PO
[2018-02-25] MEDS ORDERED: NITROGLYCERIN SINGLE TAB 0.4 MG SL PRN (21:30)
[2018-02-25] MEDS ORDERED: ASPIRIN 81 MG TABLET CHEW PO ONE (21:30)
[2018-02-25] MEDS ORDERED: ACETAMINOPHEN 325 MG TABLET PO ONE (21:30)
[2018-02-25 21:39] LABS: BASOPHILS # (AUTO) 0.08 x10^3/uL (0-0.1); BASOPHILS % (AUTO) 1 % (0-1); EOSINOPHILS # (AUTO) 0.27 x10^3/uL (0-0.4); EOSINOPHILS % (AUTO) 4 % (1-7); LYMPHOCYTES # (AUTO) 3.73 x10^3/uL (1-3.4); LYMPHOCYTES % (AUTO) 47 % (22-44); MD NO; MEAN CORPUSCULAR HEMOGLOBIN 25.7 pg (27.0-34.8); MEAN CORPUSCULAR HGB CONC 31.7 g/dL (32.4-35.8); MEAN PLATELET VOLUME 7.8 fL (7.4-10.4); MONOCYTES # (AUTO) 0.66 x10^3/uL (0.2-0.8); MONOCYTES % (AUTO) 8 % (2-9); NEUTROPHILS % (AUTO) 40 % (42-75); PLATELET COUNT 403 x10^3/uL (130-400); RED BLOOD COUNT 3.49 x10^6/uL (3.82-5.3); RED CELL DISTRIBUTION WIDTH 20.5 % (9.6-15.2)
[2018-02-25 21:51] LABS: ALBUMIN 3.5 g/dL (3.4-5.0); ANION GAP 11 mmol/L (5-15); CALCIUM 7.6 mg/dL (8.5-10.1); CHLORIDE 115 mmol/L (98-107); CREATININE 0.75 mg/dL (0.55-1.02)
[2018-02-25 21:55] LABS: TROPONIN I 0.073 ng/mL (0.000-0.045)
[2018-02-25] MEDS ORDERED: NITROGLYCERIN SINGLE TAB 0.4 MG SL ONE (22:29)
[2018-02-25] MEDS ORDERED: ACETAMINOPHEN 325 MG TABLET ONE (22:29)
[2018-02-25] MEDS ORDERED: ASPIRIN 81 MG TABLET CHEW ONE (22:29)
[2018-02-26 00:46] LABS: TROPONIN I 0.072 ng/mL (0.000-0.045)
[2018-02-26 01:36] VITALS: BP 142/78
== END 2018-02-26 01:38 | disposition home or self-care (01) ==
LOC: ED 22:49
DX: R07.89 Other chest pain (principal); F10.129 Alcohol abuse with intoxication, unspecified; E78.5 Hyperlipidemia, unspecified; I25.2 Old myocardial infarction; I10 Essential (primary) hypertension; I25.10 Atherosclerotic heart disease of native coronary artery without angina pectoris; Z96.643 Presence of artificial hip joint, bilateral; Z95.5 Presence of coronary angioplasty implant and graft
CPT/HCPCS: 36415; 71045; 80048; 82040; 83880; 84484; 85025; 93005; 99285

== ENCOUNTER 2018-04-04 17:49 | Inpatient (IN) | payer MEDICAID ==
[~2018-04-04] VITALS: Ht 157.5 cm; Wt 57.5 kg
[2018-04-04] MEDS ORDERED: ONDANSETRON ODT 4 MG ONE (18:28)
[2018-04-04] MEDS ORDERED: MAALOX/HYOSCYAMINE/LIDOCAINE 45 ML BTL ONE (18:29)
[2018-04-04] MEDS ORDERED: ONDANSETRON ODT 4 MG PO ONE (18:30)
[2018-04-04] MEDS ORDERED: MAALOX/HYOSCYAMINE/LIDOCAINE 45 ML BTL PO ONE (18:30)
[2018-04-04 18:48] LABS: ALANINE AMINOTRANSFERASE 941 U/L (12-78); ALBUMIN 3.7 g/dL (3.4-5.0); ANION GAP 14 mmol/L (5-15); CALCIUM 8.1 mg/dL (8.5-10.1); CHLORIDE 110 mmol/L (98-107); CREATININE 0.62 mg/dL (0.55-1.02)
[2018-04-04 18:52] LABS: ALKALINE PHOSPHATASE 233 U/L (45-117); BILIRUBIN,TOTAL 0.8 mg/dL (0.2-1.0); TOTAL PROTEIN 9.1 g/dL (6.4-8.2); TROPONIN I 0.103 ng/mL (0.000-0.045)
[2018-04-04 18:59] LABS: MEAN CORPUSCULAR HEMOGLOBIN 25.5 pg (27.0-34.8); MEAN CORPUSCULAR HGB CONC 32.3 g/dL (32.4-35.8); MEAN CORPUSCULAR VOLUME 79.1 fL (80-100); MEAN PLATELET VOLUME 7.8 fL (7.4-10.4); PLATELET COUNT 471 x10^3/uL (130-400); RED BLOOD COUNT 4.16 x10^6/uL (3.82-5.3); RED CELL DISTRIBUTION WIDTH 21.2 % (9.6-15.2)
[2018-04-04 19:00] LABS: MD YES
[2018-04-04 19:04] LABS: ANISOCYTOSIS 1+; BAND#(MANUAL) 0.08 x10^3/uL; BANDS%(MANUAL) 1 % (0-7); EOS#(MANUAL) 0.49 x10^3/uL (0.0-0.4); EOS% (MANUAL) 6 % (1-7); LYMPH#(MANUAL) 2.62 x10^3/uL (1-3.4); LYMPHS% (MANUAL) 32 % (22-44); MONOS#(MANUAL) 0.25 x10^3/uL (0.3-2.7); MONOS% (MANUAL) 3 % (2-9); SEG#(MANUAL) 4.76 x10^3/uL (1.8-6.8); SEGS% (MANUAL) 58 % (42-75)
[2018-04-04 19:05] LABS: <PLATELET ESTIMATE> INCREASED; <PLT MORPHOLOGY> NORMAL PLT MORPH; OVALOCYTES 1+; POLYCHROMASIA 1+
[2018-04-04] MEDS ORDERED: ASPIRIN 325 MG TABLET PO ONE (19:30)
[2018-04-04] MEDS ORDERED: HEPARIN 5,000 UNITS/ML, 1ML ONE (19:52)
[2018-04-04] MEDS ORDERED: LORazepam 2 MG/ML, 1ML ONE (19:53)
[2018-04-04] MEDS: HEPARIN 5,000 UNITS/ML, 1ML SQ SCH (19:56)
[2018-04-04] MEDS ORDERED: ONDANSETRON 2MG/ML, 2ML IVPush PRN (20:00)
[2018-04-04] MEDS ORDERED: LORATADINE 10 MG TABLET PO PRN (20:00)
[2018-04-04] MEDS ORDERED: PROMETHAZINE 25 MG/ML, 1ML IM PRN (20:00)
[2018-04-04] MEDS ORDERED: ONDANSETRON ODT 4 MG PO PRN (20:00)
[2018-04-04] MEDS ORDERED: hydrALAzine 20 MG/ML, 1ML IVPush PRN (20:00)
[2018-04-04] MEDS ORDERED: LORazepam 2 MG/ML, 1ML IV PRN ×5 (20:00)
[2018-04-04] MEDS ORDERED: LORazepam 1MG TABLET PO PRN ×4 (20:00)
[2018-04-04] MEDS ORDERED: NITROGLYCERIN 0.4 MG BOTTLE (25 TABS) SL PRN (20:00)
[2018-04-04] MEDS ORDERED: DOCUSATE 100 MG CAPSULE PO PRN (20:00)
[2018-04-04] MEDS ORDERED: POLYETHYLENE GLYCOL 17 GM PACKET PO PRN (20:00)
[2018-04-04] MEDS ORDERED: LORazepam 0.5MG TABLET PO PRN (20:00)
[2018-04-04] MEDS ORDERED: BISACODYL 10 MG SUPP PR PRN (20:00)
[2018-04-04] MEDS ORDERED: morphine SULFATE 10 MG/ML, 1ML IVPush PRN (20:00)
[2018-04-04] MEDS ORDERED: LABETALOL 5MG/ML, 20ML IVPush PRN (20:00)
[2018-04-04 20:34] VITALS: BP 125/79
[2018-04-04 20:38] LABS: % IRON SATURATION 4 % (20-55); IRON LEVEL 17 mcg/dL (50-170); TOTAL IRON BINDING CAPACITY 456 mcg/dL (250-450); TRANSFERRIN 383 mg/dL (200-360)
[2018-04-04 20:49] LABS: FREE T4 (FREE THYROXINE) 1.28 ng/dL (0.76-1.46); THYROID STIMULATING HORMONE 1.24 mIU/L (0.358-3.740)
[2018-04-04] MEDS: METOPROLOL TARTRATE 25 MG TABLET PO SCH (22:19)
[2018-04-04] MEDS: QUETIAPINE 25MG TABLET PO SCH (22:19)
[2018-04-05 00:38] VITALS: BP 92/58
[2018-04-05] MEDS: HEPARIN 5,000 UNITS/ML, 1ML SQ SCH ×3 (04:34→20:36)
[2018-04-05] MEDS: ASPIRIN 81 MG TABLET EC PO SCH (05:08)
[2018-04-05] MEDS ORDERED: MAGNESIUM SULFATE PMX 2GM/50ML 50 ML IV ONE (07:30)
[2018-04-05] MEDS ORDERED: ERGOCALCIFEROL 50,000 UNIT CAPSULE PO SCH (07:30)
[2018-04-05 08:34] VITALS: BP 97/59
[2018-04-05] MEDS: LISINOPRIL 20 MG TABLET PO SCH (09:00)
[2018-04-05] MEDS ORDERED: LISINOPRIL 20 MG TABLET PO SCH (09:00)
[2018-04-05] MEDS: PANTOPRAZOLE 40 MG IV IVPush SCH ×2 (09:33→20:35)
[2018-04-05] MEDS: FOLIC ACID 1 MG TABLET PO SCH (09:36)
[2018-04-05] MEDS: METOPROLOL TARTRATE 25 MG TABLET PO SCH ×2 (09:36→20:36)
[2018-04-05] MEDS: THIAMINE 100MG TABLET PO SCH (09:36)
[2018-04-05] MEDS: MULTIVITAMIN 1 TABLET PO SCH (09:36)
[2018-04-05] MEDS: SUCRALFATE 1 GM/10 ML UDC PO SCH ×3 (12:34→20:36)
[2018-04-05 14:05] VITALS: BP 101/60
[2018-04-05 18:34] VITALS: BP 113/67
[2018-04-05] MEDS: QUETIAPINE 25MG TABLET PO SCH (20:36)
[2018-04-05] MEDS: OXYcodone IR 5MG TABLET PO PRN (23:49)
[2018-04-06 00:26] VITALS: BP 129/73
[2018-04-06] MEDS: HEPARIN 5,000 UNITS/ML, 1ML SQ SCH (04:00)
[2018-04-06] MEDS: ASPIRIN 81 MG TABLET EC PO SCH (06:16)
[2018-04-06 07:29] LABS: ALANINE AMINOTRANSFERASE 459 U/L (12-78); ALBUMIN 2.9 g/dL (3.4-5.0); ANION GAP 8 mmol/L (5-15); CHLORIDE 110 mmol/L (98-107); CREATININE 0.45 mg/dL (0.55-1.02)
[2018-04-06 07:31] LABS: ALKALINE PHOSPHATASE 178 U/L (45-117); BILIRUBIN,TOTAL 1.4 mg/dL (0.2-1.0); TOTAL PROTEIN 7.2 g/dL (6.4-8.2)
[2018-04-06 07:42] LABS: MEAN CORPUSCULAR HEMOGLOBIN 25.9 pg (27.0-34.8); MEAN CORPUSCULAR HGB CONC 32.6 g/dL (32.4-35.8); MEAN CORPUSCULAR VOLUME 79.3 fL (80-100); MEAN PLATELET VOLUME 8.1 fL (7.4-10.4); PLATELET COUNT 222 x10^3/uL (130-400); RED BLOOD COUNT 3.32 x10^6/uL (3.82-5.3); RED CELL DISTRIBUTION WIDTH 21.3 % (9.6-15.2)
[2018-04-06 07:43] LABS: MD YES
[2018-04-06 07:47] LABS: BASOS#(MANUAL) 0.05 x10^3/uL (0-0.1); BASOS% (MANUAL) 1 % (0-1); EOS#(MANUAL) 0.41 x10^3/uL (0.0-0.4); EOS% (MANUAL) 9 % (1-7); LYMPH#(MANUAL) 1.33 x10^3/uL (1-3.4); LYMPHS% (MANUAL) 29 % (22-44); MONOS#(MANUAL) 0.28 x10^3/uL (0.3-2.7); MONOS% (MANUAL) 6 % (2-9); SEG#(MANUAL) 2.53 x10^3/uL (1.8-6.8); SEGS% (MANUAL) 55 % (42-75)
[2018-04-06 07:48] LABS: <PLATELET ESTIMATE> ADEQUATE; <PLT MORPHOLOGY> NORMAL PLT MORPH; ANISOCYTOSIS 1+
[2018-04-06] MEDS ORDERED: NITR0.4T SL (08:24)
[2018-04-06] MEDS ORDERED: OMEP-110 PO (08:24)
[2018-04-06] MEDS ORDERED: METO25TA35 PO (08:24)
[2018-04-06] MEDS ORDERED: QUET50TA PO (08:24)
[2018-04-06] MEDS ORDERED: MULT1TAB60 PO (08:24)
[2018-04-06] MEDS ORDERED: FOLI-17 PO (08:24)
[2018-04-06] MEDS ORDERED: THIA100T67 PO (08:24)
[2018-04-06] MEDS ORDERED: ASPI-621 PO (08:24)
[2018-04-06] MEDS ORDERED: ERGO500017 PO (08:24)
[2018-04-06] MEDS ORDERED: LISI-170 PO (08:24)
[2018-04-06] MEDS ORDERED: LORA10TA3 PO (08:24)
[2018-04-06] MEDS ORDERED: TRAM-47 PO (08:26)
[2018-04-06 08:35] VITALS: BP 144/78
[2018-04-06] MEDS: SUCRALFATE 1 GM/10 ML UDC PO SCH ×2 (09:35→10:36)
[2018-04-06] MEDS: PANTOPRAZOLE 40 MG IV IVPush SCH (09:36)
[2018-04-06] MEDS: OXYcodone IR 5MG TABLET PO PRN (09:37)
[2018-04-06] MEDS: FOLIC ACID 1 MG TABLET PO SCH (09:38)
[2018-04-06] MEDS: THIAMINE 100MG TABLET PO SCH (09:38)
[2018-04-06] MEDS: METOPROLOL TARTRATE 25 MG TABLET PO SCH (09:38)
[2018-04-06] MEDS: LISINOPRIL 20 MG TABLET PO SCH (09:38)
[2018-04-06] MEDS: MULTIVITAMIN 1 TABLET PO SCH (09:38)
[2018-04-06] MEDS ORDERED: SUCR1ORA5 PO (10:29)
== END 2018-04-06 12:08 | disposition home or self-care (01) | DRG 432 ==
LOC: ED 18:15 → EDIP 19:04 → 5SO 20:22 → DCLOUNGE 04-06 11:42
PROVIDERS: ADMIT Internal Medicine; ATTEND Internal Medicine
DX: K70.10 Alcoholic hepatitis without ascites (principal); I21.4 Non-ST elevation (NSTEMI) myocardial infarction; E87.2 Acidosis; F10.239 Alcohol dependence with withdrawal, unspecified; G93.40 Encephalopathy, unspecified; D50.9 Iron deficiency anemia, unspecified; E55.9 Vitamin D deficiency, unspecified; E78.5 Hyperlipidemia, unspecified; E87.6 Hypokalemia; F10.229 Alcohol dependence with intoxication, unspecified; G89.29 Other chronic pain; I11.9 Hypertensive heart disease without heart failure; Z96.643 Presence of artificial hip joint, bilateral; K20.9 Esophagitis, unspecified; I25.10 Atherosclerotic heart disease of native coronary artery without angina pectoris; K29.70 Gastritis, unspecified, without bleeding; Z91.14 Patient's other noncompliance with medication regimen; Z95.5 Presence of coronary angioplasty implant and graft; Z88.8 Allergy status to other drugs, medicaments and biological substances; Z91.041 Radiographic dye allergy status; Z79.899 Other long term (current) drug therapy
CPT/HCPCS: 36415; 71045; 80053; 80307; 82306; 82607; 82728; 83036; 83540; 83550; 83735; 83880; 84439; 84443; 84466; 84484; 85025; 90656; 93005; 99285; G0378; J1644; Q0162; C9113; J2060; J3475

== ENCOUNTER 2018-05-21 18:48 | Inpatient (IN) | payer MEDICAID ==
[~2018-05-21] VITALS: Ht 139.7 cm; Wt 65.0 kg
[~2018-05-21 18:48] MED LIST changes: -ASPI-621 PO; +ASPI81TA45 PO; +ERGO500017 PO; +FOLI-17 PO; +MULT1TAB60 PO; +OMEP-110 PO; +SUCR1ORA5 PO; +THIA100T67 PO; +TRAM-47 PO
[2018-05-21] MEDS ORDERED: LORazepam 2 MG/ML, 1ML ONE (19:26)
[2018-05-21] MEDS ORDERED: LORazepam 2 MG/ML, 1ML IVPush ONE (19:30)
[2018-05-21 19:42] LABS: ALANINE AMINOTRANSFERASE 68 U/L (12-78); ALBUMIN 3.5 g/dL (3.4-5.0); ANION GAP 10 mmol/L (5-15); CALCIUM 7.8 mg/dL (8.5-10.1); CHLORIDE 108 mmol/L (98-107); CREATININE 0.45 mg/dL (0.55-1.02)
--- NOTE | 2018-05-21 19:44 | NUR ---
WENT INTO ROOM TO ADMINISTER ATIVAN, PT WAS ASLEEP SNORING. DR. CASAS NOTIFIED, MED HELD ATT.
[2018-05-21 19:45] LABS: ALKALINE PHOSPHATASE 275 U/L (45-117); BILIRUBIN,TOTAL 0.6 mg/dL (0.2-1.0); TOTAL PROTEIN 8.8 g/dL (6.4-8.2)
[2018-05-21 19:48] LABS: MEAN CORPUSCULAR HEMOGLOBIN 24.5 pg (27.0-34.8); MEAN CORPUSCULAR HGB CONC 30.6 g/dL (32.4-35.8); MEAN CORPUSCULAR VOLUME 80.1 fL (80-100); MEAN PLATELET VOLUME 8.1 fL (7.4-10.4); PLATELET COUNT 192 x10^3/uL (130-400); RED BLOOD COUNT 3.81 x10^6/uL (3.82-5.3); RED CELL DISTRIBUTION WIDTH 20.9 % (9.6-15.2)
[2018-05-21 20:08] LABS: MD YES
[2018-05-21 20:11] LABS: BAND#(MANUAL) 0.06 x10^3/uL; BANDS%(MANUAL) 1 % (0-7); BASOS#(MANUAL) 0.06 x10^3/uL (0-0.1); BASOS% (MANUAL) 1 % (0-1); EOS#(MANUAL) 0.11 x10^3/uL (0.0-0.4); EOS% (MANUAL) 2 % (1-7); LYMPH#(MANUAL) 2.24 x10^3/uL (1-3.4); LYMPHS% (MANUAL) 40 % (22-44); MONOS#(MANUAL) 0.73 x10^3/uL (0.3-2.7); MONOS% (MANUAL) 13 % (2-9); SEG#(MANUAL) 2.41 x10^3/uL (1.8-6.8); SEGS% (MANUAL) 43 % (42-75)
[2018-05-21 20:13] LABS: ANISOCYTOSIS 2+; HYPOCHROMIA 2+; MICROCYTOSIS 1+; OVALOCYTES 1+
[2018-05-21 20:14] LABS: POLYCHROMASIA 1+
[2018-05-21 20:15] LABS: <PLATELET ESTIMATE> ADEQUATE
[2018-05-21 20:16] LABS: <PLT MORPHOLOGY> NORMAL PLT MORPH
--- NOTE | 2018-05-21 20:46 | NUR ---
PT ASLEEP ON GURNEY. RR EVEN AND UNLABORED. PT ON CONT. SPO2, CARDIAC, BP MONITOR, VSS. NAD NOTED
--- NOTE | 2018-05-21 21:29 | NUR ---
NO CHANGE IN PT STATUS. PT REMAINS ASLEEP, AROUSED BY VERBAL STIMULI. PT ON CONT CARDIAC, BP, AND SPO2 MONITOR, VSS.
[2018-05-21] MEDS ORDERED: NS + 20MEQ KCL 1,000 ML IV SCH (22:05)
[2018-05-21] MEDS ORDERED: LORazepam 2 MG/ML, 1ML IV PRN ×2 (22:30)
[2018-05-21] MEDS ORDERED: DOCUSATE 100 MG CAPSULE PO PRN (22:30)
[2018-05-21] MEDS ORDERED: POLYETHYLENE GLYCOL 17 GM PACKET PO PRN (22:30)
[2018-05-21] MEDS ORDERED: NITROGLYCERIN 0.4 MG/SPRAY SL PRN (22:30)
[2018-05-21] MEDS ORDERED: LORazepam 1MG TABLET PO PRN ×3 (22:30)
[2018-05-21] MEDS ORDERED: ONDANSETRON 2MG/ML, 2ML IVPush PRN (22:30)
[2018-05-21] MEDS ORDERED: morphine SULFATE 10 MG/ML, 1ML IVPush PRN (22:30)
[2018-05-21] MEDS ORDERED: NITROGLYCERIN 0.4 MG BOTTLE (25 TABS) SL PRN (22:30)
[2018-05-21] MEDS ORDERED: LORazepam 0.5MG TABLET PO PRN (22:30)
--- NOTE | 2018-05-21 22:50 | NUR ---
REPORT GIVEN TO JULIAN PEDRAZA
[2018-05-21 23:17] VITALS: BP 140/67
[2018-05-21] MEDS: SUCRALFATE 1 GM TABLET PO SCH (23:41)
[2018-05-21] MEDS: OMEPRAZOLE 20 MG CAPSULE.DR PO SCH (23:41)
[2018-05-21] MEDS: NITROGLYCERIN 0.4 MG BOTTLE (25 TABS) SL PRN ×2 (23:41→23:47)
[2018-05-21] MEDS: ENOXAPARIN 40 MG/0.4 ML SQ SCH ×2 (23:44→23:53)
[2018-05-22] MEDS: QUETIAPINE 25MG TABLET PO SCH ×2 (00:20→19:41)
[2018-05-22] MEDS: NITROGLYCERIN 0.4 MG BOTTLE (25 TABS) SL PRN (00:20)
[2018-05-22] MEDS: ACETAMINOPHEN 325 MG TABLET PO PRN (00:36)
[2018-05-22] MEDS: METOPROLOL TARTRATE 25 MG TABLET PO SCH ×3 (03:08→19:29)
[2018-05-22 03:09] VITALS: BP 127/72
[2018-05-22] MEDS: ASPIRIN 81 MG TABLET EC PO SCH ×2 (06:00→08:59)
[2018-05-22 06:04] LABS: ANION GAP 13 mmol/L (5-15); CALCIUM 7.2 mg/dL (8.5-10.1); CHLORIDE 112 mmol/L (98-107); CREATININE 0.54 mg/dL (0.55-1.02)
[2018-05-22 06:09] LABS: TROPONIN I 0.111 ng/mL (0.000-0.045)
[2018-05-22] MEDS ORDERED: POTASSIUM CHLORIDE 60 MEQ in SODIUM CHLORIDE 0.9% 500 ML IV ONE (06:30)
[2018-05-22] MEDS ORDERED: MAGNESIUM SULFATE 3 GM in SODIUM CHLORIDE 0.9% 100 ML IV ONE (06:30)
[2018-05-22 08:35] VITALS: BP 112/65
[2018-05-22] MEDS: OMEPRAZOLE 20 MG CAPSULE.DR PO SCH ×2 (08:58→19:29)
[2018-05-22] MEDS: THIAMINE 100MG TABLET PO SCH (08:58)
[2018-05-22] MEDS: FAMOTIDINE 20 MG TABLET PO SCH ×2 (08:59→19:29)
[2018-05-22] MEDS: MULTIVITAMIN 1 TABLET PO SCH (08:59)
[2018-05-22] MEDS: FOLIC ACID 1 MG TABLET PO SCH (08:59)
[2018-05-22] MEDS: SUCRALFATE 1 GM TABLET PO SCH ×4 (08:59→19:26)
[2018-05-22] MEDS: LISINOPRIL 20 MG TABLET PO SCH (08:59)
[2018-05-22] MEDS: SENNA/DOCUSATE TABLET PO SCH (09:00)
[2018-05-22 13:50] VITALS: BP 128/72
[2018-05-22] MEDS: SODIUM CHLORIDE 0.9% 1,000 ML IV SCH ×2 (14:24→21:51)
[2018-05-22] MEDS ORDERED: MAGNESIUM SULFATE 1 GM in SODIUM CHLORIDE 0.9% 50 ML IV ONE (18:30)
[2018-05-22] MEDS: HYDROcodone/APAP 5/325 TABLET PO PRN (19:26)
[2018-05-22 19:30] VITALS: BP 147/69
[2018-05-22] MEDS: ENOXAPARIN 40 MG/0.4 ML SQ SCH (21:51)
[2018-05-22] MEDS: CALCIUM CARBONATE 500 MG TAB.CHEW PO PRN (22:26)
[2018-05-23 01:54] VITALS: BP 146/76
[2018-05-23] MEDS: HYDROcodone/APAP 5/325 TABLET PO PRN (02:38)
[2018-05-23] MEDS: SODIUM CHLORIDE 0.9% 1,000 ML IV SCH ×3 (04:56→20:40)
[2018-05-23 05:48] LABS: MEAN CORPUSCULAR HEMOGLOBIN 24.8 pg (27.0-34.8); MEAN CORPUSCULAR HGB CONC 31.1 g/dL (32.4-35.8); MEAN CORPUSCULAR VOLUME 79.8 fL (80-100); MEAN PLATELET VOLUME 8.2 fL (7.4-10.4); PLATELET COUNT 157 x10^3/uL (130-400); RED BLOOD COUNT 3.54 x10^6/uL (3.82-5.3); RED CELL DISTRIBUTION WIDTH 21.4 % (9.6-15.2)
[2018-05-23 05:49] LABS: MD YES
[2018-05-23 05:59] LABS: ALANINE AMINOTRANSFERASE 64 U/L (12-78); ALBUMIN 3.3 g/dL (3.4-5.0); ANION GAP 10 mmol/L (5-15); CALCIUM 8.2 mg/dL (8.5-10.1); CHLORIDE 109 mmol/L (98-107); CREATININE 0.53 mg/dL (0.55-1.02)
[2018-05-23 06:01] LABS: ALKALINE PHOSPHATASE 311 U/L (45-117); BILIRUBIN,TOTAL 1.3 mg/dL (0.2-1.0); TOTAL PROTEIN 8.2 g/dL (6.4-8.2)
[2018-05-23 06:11] LABS: ANISOCYTOSIS 2+; BASOS#(MANUAL) 0.04 x10^3/uL (0-0.1); BASOS% (MANUAL) 1 % (0-1); EOS#(MANUAL) 0.16 x10^3/uL (0.0-0.4); EOS% (MANUAL) 4 % (1-7); HYPOCHROMIA 2+; LYMPH#(MANUAL) 1.48 x10^3/uL (1-3.4); LYMPHS% (MANUAL) 36 % (22-44); MICROCYTOSIS 1+; MONOS#(MANUAL) 0.21 x10^3/uL (0.3-2.7); MONOS% (MANUAL) 5 % (2-9); POLYCHROMASIA 1+; SEG#(MANUAL) 2.21 x10^3/uL (1.8-6.8); SEGS% (MANUAL) 54 % (42-75)
[2018-05-23 06:12] LABS: <PLATELET ESTIMATE> ADEQUATE; <PLT MORPHOLOGY> NORMAL PLT MORPH; OVALOCYTES 1+
[2018-05-23] MEDS ORDERED: MAGNESIUM SULFATE 3 GM in SODIUM CHLORIDE 0.9% 100 ML IV ONE (06:30)
[2018-05-23] MEDS ORDERED: POTASSIUM CHLORIDE 20 MEQ TAB.ER.PRT PO ONE (06:30)
[2018-05-23] MEDS: SENNA/DOCUSATE TABLET PO SCH (07:14)
[2018-05-23] MEDS: LISINOPRIL 20 MG TABLET PO SCH (07:19)
[2018-05-23] MEDS: THIAMINE 100MG TABLET PO SCH (07:19)
[2018-05-23] MEDS: METOPROLOL TARTRATE 25 MG TABLET PO SCH ×2 (07:19→20:40)
[2018-05-23] MEDS: FOLIC ACID 1 MG TABLET PO SCH (07:19)
[2018-05-23] MEDS: FAMOTIDINE 20 MG TABLET PO SCH ×2 (07:19→20:35)
[2018-05-23] MEDS: OMEPRAZOLE 20 MG CAPSULE.DR PO SCH ×2 (07:19→20:35)
[2018-05-23] MEDS: MULTIVITAMIN 1 TABLET PO SCH (07:19)
[2018-05-23] MEDS: SUCRALFATE 1 GM TABLET PO SCH ×4 (07:25→20:40)
[2018-05-23 07:52] VITALS: BP 142/73
[2018-05-23 14:05] VITALS: BP 139/78
[2018-05-23 20:31] VITALS: BP 152/82
[2018-05-23] MEDS: ENOXAPARIN 40 MG/0.4 ML SQ SCH (20:34)
[2018-05-23] MEDS: LORazepam 2 MG/ML, 1ML IV PRN ×2 (20:34→23:16)
[2018-05-23] MEDS: QUETIAPINE 25MG TABLET PO SCH (20:39)
[2018-05-24 03:28] VITALS: BP 144/84
[2018-05-24] MEDS: SODIUM CHLORIDE 0.9% 1,000 ML IV SCH ×4 (05:51→21:01)
[2018-05-24] MEDS: ASPIRIN 81 MG TABLET EC PO SCH (05:51)
[2018-05-24 07:34] LABS: ALANINE AMINOTRANSFERASE 48 U/L (12-78); ALBUMIN 3.1 g/dL (3.4-5.0); ANION GAP 8 mmol/L (5-15); CALCIUM 7.6 mg/dL (8.5-10.1); CHLORIDE 106 mmol/L (98-107); CREATININE 0.48 mg/dL (0.55-1.02)
[2018-05-24 07:36] LABS: ALKALINE PHOSPHATASE 260 U/L (45-117); BILIRUBIN,TOTAL 0.9 mg/dL (0.2-1.0); TOTAL PROTEIN 7.7 g/dL (6.4-8.2)
[2018-05-24 07:53] VITALS: BP 147/77
[2018-05-24] MEDS ORDERED: MAGNESIUM SULFATE 3 GM in SODIUM CHLORIDE 0.9% 100 ML IV ONE (08:30)
[2018-05-24] MEDS: SUCRALFATE 1 GM TABLET PO SCH ×4 (08:58→20:49)
[2018-05-24] MEDS: LISINOPRIL 20 MG TABLET PO SCH (08:58)
[2018-05-24] MEDS: METOPROLOL TARTRATE 25 MG TABLET PO SCH ×2 (08:58→20:49)
[2018-05-24] MEDS: MULTIVITAMIN 1 TABLET PO SCH (08:58)
[2018-05-24] MEDS: OMEPRAZOLE 20 MG CAPSULE.DR PO SCH ×2 (08:59→20:49)
[2018-05-24] MEDS: SENNA/DOCUSATE TABLET PO SCH (08:59)
[2018-05-24] MEDS: THIAMINE 100MG TABLET PO SCH (08:59)
[2018-05-24] MEDS: FAMOTIDINE 20 MG TABLET PO SCH ×2 (08:59→20:49)
[2018-05-24] MEDS: FOLIC ACID 1 MG TABLET PO SCH (08:59)
[2018-05-24] MEDS ORDERED: POTASSIUM CHLORIDE 20 MEQ TAB.ER.PRT PO ONE (12:30)
[2018-05-24 12:41] VITALS: BP 139/75
[2018-05-24] MEDS: QUETIAPINE 25MG TABLET PO SCH (20:49)
[2018-05-24] MEDS: ENOXAPARIN 40 MG/0.4 ML SQ SCH (20:49)
[2018-05-24 21:57] VITALS: BP 162/83
[2018-05-25 03:59] VITALS: BP 160/96
[2018-05-25] MEDS: ASPIRIN 81 MG TABLET EC PO SCH (05:33)
[2018-05-25 07:11] VITALS: BP 162/96
[2018-05-25] MEDS: THIAMINE 100MG TABLET PO SCH (09:00)
[2018-05-25] MEDS: FAMOTIDINE 20 MG TABLET PO SCH ×2 (09:04→21:35)
[2018-05-25] MEDS: LISINOPRIL 20 MG TABLET PO SCH (09:04)
[2018-05-25] MEDS: SENNA/DOCUSATE TABLET PO SCH (09:04)
[2018-05-25] MEDS: MULTIVITAMIN 1 TABLET PO SCH (09:04)
[2018-05-25] MEDS: FOLIC ACID 1 MG TABLET PO SCH (09:04)
[2018-05-25] MEDS: METOPROLOL TARTRATE 25 MG TABLET PO SCH ×2 (09:05→21:35)
[2018-05-25] MEDS: OMEPRAZOLE 20 MG CAPSULE.DR PO SCH ×2 (09:05→21:34)
[2018-05-25] MEDS: SUCRALFATE 1 GM TABLET PO SCH ×4 (09:05→21:34)
[2018-05-25 11:09] LABS: ALANINE AMINOTRANSFERASE 47 U/L (12-78); ANION GAP 9 mmol/L (5-15); CALCIUM 7.7 mg/dL (8.5-10.1); CHLORIDE 110 mmol/L (98-107); CREATININE 0.51 mg/dL (0.55-1.02)
[2018-05-25 11:11] LABS: ALKALINE PHOSPHATASE 242 U/L (45-117); BILIRUBIN,TOTAL 0.8 mg/dL (0.2-1.0); TOTAL PROTEIN 7.5 g/dL (6.4-8.2)
[2018-05-25 11:25] LABS: MEAN CORPUSCULAR HEMOGLOBIN 24.7 pg (27.0-34.8); MEAN CORPUSCULAR VOLUME 79.9 fL (80-100); MEAN PLATELET VOLUME 8.4 fL (7.4-10.4); PLATELET COUNT 179 x10^3/uL (130-400); RED BLOOD COUNT 3.46 x10^6/uL (3.82-5.3); RED CELL DISTRIBUTION WIDTH 21.2 % (9.6-15.2)
[2018-05-25 11:26] LABS: MD YES
[2018-05-25 13:52] LABS: ANISOCYTOSIS 2+; BAND#(MANUAL) 0.12 x10^3/uL; BANDS%(MANUAL) 2 % (0-7); BASOS#(MANUAL) 0.12 x10^3/uL (0-0.1); BASOS% (MANUAL) 2 % (0-1); EOS#(MANUAL) 0.36 x10^3/uL (0.0-0.4); EOS% (MANUAL) 6 % (1-7); HYPOCHROMIA 1+; LYMPH#(MANUAL) 0.36 x10^3/uL (1-3.4); LYMPHS% (MANUAL) 6 % (22-44); MICROCYTOSIS 1+; MONOS#(MANUAL) 0.24 x10^3/uL (0.3-2.7); MONOS% (MANUAL) 4 % (2-9); POLYCHROMASIA 1+; SEGS% (MANUAL) 80 % (42-75)
[2018-05-25 13:55] LABS: <PLATELET ESTIMATE> ADEQUATE; <PLT MORPHOLOGY> NORMAL PLT MORPH
[2018-05-25 14:30] VITALS: BP 115/71
[2018-05-25] MEDS ORDERED: MAGNESIUM SULFATE 4 GM in SODIUM CHLORIDE 0.9% 100 ML IV ONE (15:00)
[2018-05-25] MEDS ORDERED: MAGNESIUM SULFATE PMX 2GM/50ML 50 ML IVPB ONE (15:00)
[2018-05-25] MEDS ORDERED: MAGNESIUM SULFATE PMX 4GM/100M 100 ML IVPB ONE (15:00)
[2018-05-25 16:36] LABS: % IRON SATURATION 5 % (20-55); IRON LEVEL 21 mcg/dL (50-170); TOTAL IRON BINDING CAPACITY 420 mcg/dL (250-450)
[2018-05-25] MEDS: AMLODIPINE 5 MG TABLET PO SCH (16:41)
[2018-05-25 19:05] VITALS: BP 146/79
[2018-05-25] MEDS: CALCIUM CARBONATE 500 MG TAB.CHEW PO PRN (19:59)
[2018-05-25] MEDS: ACETAMINOPHEN 325 MG TABLET PO PRN (19:59)
[2018-05-25] MEDS: IRON SUCROSE COMPLEX 100MG/5ML IV SCH (21:34)
[2018-05-25] MEDS: MAGNESIUM OXIDE 400 MG TABLET PO SCH (21:34)
[2018-05-25] MEDS: QUETIAPINE 25MG TABLET PO SCH (21:35)
[2018-05-25] MEDS: ENOXAPARIN 40 MG/0.4 ML SQ SCH (22:30)
[2018-05-26 02:00] VITALS: BP 120/79
[2018-05-26 05:48] LABS: CHLORIDE 109 mmol/L (98-107)
[2018-05-26] MEDS: ASPIRIN 81 MG TABLET EC PO SCH (06:00)
[2018-05-26 06:17] LABS: ANION GAP 8 mmol/L (5-15); CREATININE 0.47 mg/dL (0.55-1.02)
[2018-05-26] MEDS ORDERED: AMLO-150 PO (08:02)
[2018-05-26] MEDS ORDERED: MAGN400T50 PO (08:02)
[2018-05-26] MEDS: AMLODIPINE 5 MG TABLET PO SCH (08:09)
[2018-05-26] MEDS: THIAMINE 100MG TABLET PO SCH (08:09)
[2018-05-26] MEDS: IRON SUCROSE COMPLEX 100MG/5ML IV SCH (08:09)
[2018-05-26] MEDS: MULTIVITAMIN 1 TABLET PO SCH (08:09)
[2018-05-26] MEDS: LISINOPRIL 20 MG TABLET PO SCH (08:09)
[2018-05-26] MEDS: FOLIC ACID 1 MG TABLET PO SCH (08:09)
[2018-05-26] MEDS: MAGNESIUM OXIDE 400 MG TABLET PO SCH (08:10)
[2018-05-26] MEDS: SUCRALFATE 1 GM TABLET PO SCH ×2 (08:10→11:00)
[2018-05-26] MEDS: OMEPRAZOLE 20 MG CAPSULE.DR PO SCH (08:10)
[2018-05-26] MEDS: FAMOTIDINE 20 MG TABLET PO SCH (08:10)
[2018-05-26] MEDS: METOPROLOL TARTRATE 25 MG TABLET PO SCH (08:10)
[2018-05-26] MEDS: SENNA/DOCUSATE TABLET PO SCH (08:14)
[2018-05-26] MEDS: ACETAMINOPHEN 325 MG TABLET PO PRN (14:51)
== END 2018-05-26 15:04 | disposition home or self-care (01) | DRG 439 ==
LOC: ED 21:56 → SUATTDRO 22:00 → EDIP 22:05 → 5SO 23:08 → 4EST 05-24 17:37
PROVIDERS: ADMIT Family Medicine; ATTEND Family Medicine
DX: K85.20 Alcohol induced acute pancreatitis without necrosis or infection (principal); F10.239 Alcohol dependence with withdrawal, unspecified; R07.89 Other chest pain; D50.9 Iron deficiency anemia, unspecified; E55.9 Vitamin D deficiency, unspecified; E78.5 Hyperlipidemia, unspecified; E83.42 Hypomagnesemia; E87.6 Hypokalemia; E88.09 Other disorders of plasma-protein metabolism, not elsewhere classified; F10.220 Alcohol dependence with intoxication, uncomplicated; I11.9 Hypertensive heart disease without heart failure; I25.10 Atherosclerotic heart disease of native coronary artery without angina pectoris; I45.9 Conduction disorder, unspecified; Y90.8 Blood alcohol level of 240 mg/100 ml or more; Z59.0 Homelessness; Z91.14 Patient's other noncompliance with medication regimen; Z95.5 Presence of coronary angioplasty implant and graft; Z96.643 Presence of artificial hip joint, bilateral; Z88.3 Allergy status to other anti-infective agents; Z91.048 Other nonmedicinal substance allergy status
CPT/HCPCS: 36415; 71045; 80048; 80053; 80307; 83540; 83550; 83690; 83735; 84484; 85025; 93005; 93306; 96374; 99285; G0378; J1650; J1756; J3475; J3480; J2060; J7030; J7040

== ENCOUNTER 2018-05-27 12:58 | Emergency (ER) | payer MEDICAID ==
[~2018-05-27 12:58] MED LIST changes: +AMLO-150 PO; +MAGN400T50 PO
[2018-05-27 13:08] VITALS: BP 125/61
--- NOTE | 2018-05-27 13:38 | NUR ---
TASK RN: Pt removes EKG leads while computing consultant attempts to perform EKG. ED MD aware.
--- NOTE | 2018-05-27 14:33 | NUR ---
Late entry: I attempted to perform EKG on pt. She continually pulled off the leads and would not follow directions to leave leads in place.
== END 2018-05-27 15:30 | disposition home or self-care (01) ==
LOC: ED 13:17
DX: F10.220 Alcohol dependence with intoxication, uncomplicated (principal); F17.200 Nicotine dependence, unspecified, uncomplicated; I25.2 Old myocardial infarction; E78.5 Hyperlipidemia, unspecified; I25.10 Atherosclerotic heart disease of native coronary artery without angina pectoris
CPT/HCPCS: 99283

== ENCOUNTER 2018-06-09 16:24 | Emergency (ER) | payer MEDICAID ==
[~2018-06-09] VITALS: Ht 149.9 cm; Wt 65.0 kg
[~2018-06-09 16:24] MED LIST changes: -AMLO10TA6 PO; +AMLO10TA8 PO; -AMLO2.5T3 PO; +AMLO2.5T5 PO; +LORA-247 PO; -LORA10TA3 PO
--- NOTE | 2018-06-09 16:34 | NUR ---
DR WINSTON BS FOR EXAM. ROD, RN AT BS ASSISTING W/ TRANSLATION. PT STATES CP WORSE TODAY THAN USUAL. PAIN 02/28. C/O LT ARM PAIN: OBSERVED PT MOVING ARM W/OUT DIFFICULTY. VODKA INTAKE: "NOT A LOT". PT TALKATIVE, IN INDONESIAN.
--- NOTE | 2018-06-09 17:13 | NUR ---
PT REFUSED BREATHALYZER. PER JCARLOS AGENT BROKER, PT WANTS TO GO HOME.
--- NOTE | 2018-06-09 17:14 | NUR ---
PT REPORT TO AYAAN HORNE RN.
--- NOTE | 2018-06-09 17:57 | NUR ---
PT CONVERSING W/ GRANDSON. PT ANIMATED.
[2018-06-09] MEDS ORDERED: ASPIRIN 81 MG TABLET CHEW PO ONE (18:00)
[2018-06-09] MEDS ORDERED: PLEASE ENTER HEIGHT AND WEIGHT MC SCH (18:00)
[2018-06-09] MEDS ORDERED: SUCR1TAB PO (18:03)
[2018-06-09] MEDS ORDERED: LISI40TA PO (18:03)
[2018-06-09] MEDS ORDERED: GABA300C10 PO (18:04)
[2018-06-09] MEDS ORDERED: RISP1TAB3 PO (18:05)
[2018-06-09 18:06] LABS: ALBUMIN 3.1 g/dL (3.4-5.0); ANION GAP 8 mmol/L (5-15); CALCIUM 7.6 mg/dL (8.5-10.1); CHLORIDE 113 mmol/L (98-107); CREATININE 0.49 mg/dL (0.55-1.02)
[2018-06-09 18:09] LABS: MEAN CORPUSCULAR HEMOGLOBIN 26.6 pg (27.0-34.8); MEAN CORPUSCULAR HGB CONC 32.1 g/dL (32.4-35.8); MEAN CORPUSCULAR VOLUME 82.6 fL (80-100); MEAN PLATELET VOLUME 7.8 fL (7.4-10.4); PLATELET COUNT 465 x10^3/uL (130-400); RED CELL DISTRIBUTION WIDTH 23.3 % (9.6-15.2)
--- NOTE | 2018-06-09 18:10 | NUR ---
MED REC COMPLETED USING RX BOTTLES FOUND IN PT BELONGINGS. PT IS A POOR HISTORIAN, CURRENTLY.
[2018-06-09] MEDS ORDERED: ASPIRIN 81 MG TABLET CHEW ONE (18:14)
--- NOTE | 2018-06-09 18:15 | NUR ---
PT REFUSED BREATHALYZER, AGAIN. AGREED TO TAKE ASA.
[2018-06-09 18:34] LABS: MD YES
[2018-06-09 18:42] LABS: EOS#(MANUAL) 0.07 x10^3/uL (0.0-0.4); EOS% (MANUAL) 1 % (1-7); LYMPH#(MANUAL) 2.95 x10^3/uL (1-3.4); LYMPHS% (MANUAL) 44 % (22-44); MONOS#(MANUAL) 0.47 x10^3/uL (0.3-2.7); MONOS% (MANUAL) 7 % (2-9); SEG#(MANUAL) 3.22 x10^3/uL (1.8-6.8); SEGS% (MANUAL) 48 % (42-75)
[2018-06-09 18:43] LABS: <PLATELET ESTIMATE> INCREASED; <PLT MORPHOLOGY> NORMAL PLT MORPH; ANISOCYTOSIS 2+; MICROCYTOSIS 1+; OVALOCYTES 1+
--- NOTE | 2018-06-09 18:53 | NUR ---
PT CONCERNED ABOUT PURSE. PURSE WAS NOT W/ PERSONAL BELONGINGS WHEN PT ARRIVED. CALLED [facility]; THEY WILL INVESTIGATE AND CALL BACK.
--- NOTE | 2018-06-09 19:05 | NUR ---
PT DOZING, SIDE RAILS UP X2, CALL LIGHT W/IN REACH, GRANDSON NOT IN ROOM, CARDIAC & VS MONITORING CONTINUES.
--- NOTE | 2018-06-09 19:54 | NUR ---
PT REPORT TO JULIAN CANALES FOR ROOM 523
--- NOTE | 2018-06-09 20:04 | NUR ---
TP RN: PER HOSPITALIST. PT IS TO BE HELD FOR ADMIT UNTIL SECOND TROPONIN COMES BACK
[2018-06-09 20:56] LABS: TROPONIN I 0.067 ng/mL (0.000-0.045)
--- NOTE | 2018-06-09 21:48 | NUR ---
CALLED [facility], SPOKE TO RAMESH PAIZ: PT'S PURSE. HE WILL CHECK W/ EMS CREW AND CALL BACK.
--- NOTE | 2018-06-09 21:55 | NUR ---
[facility] CALLED: NO PURSE WAS SEEN AT PT'S PICK-UP SITE. PT INFORMED.
[2018-06-09 22:11] VITALS: BP 143/77
--- NOTE | 2018-06-09 22:15 | NUR ---
PT WAS PROVIDED W/ COPY OF DEMOGRAPHIC PAGE (FOR ID PURPOSES). PT ARGUMENTATIVE W/ PITCH WORKER (CHARO) RE: HER PURSE. TAXI VOUCHER PROVIDED TO TAKE PT TO SITE OF EMS PICK-UP ([address], PER [facility]).
== END 2018-06-09 22:14 | disposition home or self-care (01) ==
LOC: ED 16:32
DX: R07.2 Precordial pain (principal); F10.229 Alcohol dependence with intoxication, unspecified; I25.2 Old myocardial infarction; I10 Essential (primary) hypertension; I25.10 Atherosclerotic heart disease of native coronary artery without angina pectoris; E78.5 Hyperlipidemia, unspecified
CPT/HCPCS: 36415; 71045; 80048; 82040; 84484; 85025; 93005; 99284

== ENCOUNTER 2018-06-27 17:27 | Emergency (ER) | payer MEDICAID ==
[~2018-06-27] VITALS: Ht 149.9 cm; Wt 60.0 kg
[~2018-06-27 17:27] MED LIST changes: +GABA300C10 PO; +LISI40TA PO; +RISP1TAB3 PO; +SUCR1TAB PO
--- NOTE | 2018-06-27 17:37 | NUR ---
PRESENTS VIA [facility] FOR MORE/CHEST PAIN X5 HOURS. ADMITS TO ETOH, VSS, ECG OBTAINED IMMEDIATELY. WET COUGH
[2018-06-27] MEDS ORDERED: KETOROLAC 30 MG/1 ML IVPush ONE (18:00)
[2018-06-27] MEDS ORDERED: KETOROLAC 30 MG/1 ML ONE (18:07)
[2018-06-27 18:41] LABS: BASOPHILS # (AUTO) 0.08 x10^3/uL (0-0.1); BASOPHILS % (AUTO) 1 % (0-1); EOSINOPHILS % (AUTO) 2 % (1-7); LYMPHOCYTES # (AUTO) 3.14 x10^3/uL (1-3.4); LYMPHOCYTES % (AUTO) 36 % (22-44); MD NO; MEAN CORPUSCULAR HEMOGLOBIN 25.5 pg (27.0-34.8); MEAN CORPUSCULAR HGB CONC 31.5 g/dL (32.4-35.8); MEAN CORPUSCULAR VOLUME 80.9 fL (80-100); MEAN PLATELET VOLUME 8.2 fL (7.4-10.4); MONOCYTES # (AUTO) 0.73 x10^3/uL (0.2-0.8); MONOCYTES % (AUTO) 8 % (2-9); NEUTROPHILS # (AUTO) 4.67 x10^3/uL (1.8-6.8); NEUTROPHILS % (AUTO) 53 % (42-75); PLATELET COUNT 392 x10^3/uL (130-400); RED BLOOD COUNT 4.06 x10^6/uL (3.82-5.3); RED CELL DISTRIBUTION WIDTH 21.5 % (9.6-15.2)
[2018-06-27 18:49] LABS: ALBUMIN 3.3 g/dL (3.4-5.0); ANION GAP 11 mmol/L (5-15); CALCIUM 8.3 mg/dL (8.5-10.1); CHLORIDE 111 mmol/L (98-107); CREATININE 0.56 mg/dL (0.55-1.02)
[2018-06-27 18:56] LABS: TROPONIN I 0.132 ng/mL (0.000-0.045)
[2018-06-27] MEDS ORDERED: ASPIRIN 81 MG TABLET CHEW ONE (19:23)
[2018-06-27] MEDS ORDERED: ASPIRIN 81 MG TABLET CHEW PO ONE (19:30)
--- NOTE | 2018-06-27 20:14 | NUR ---
RESTING IN BED QUIETLY. REPORTS PAIN COMPLETELY IMPROVED, VSS. TO RE-DRAW TROPONIN AT 2100
--- NOTE | 2018-06-27 20:50 | NUR ---
CONTINUES TO DENIE PAIN-RESTING IN BED COMFORTABLY WITH RAILS UP AND CALL PRITCHARD WITHIN REACH. VSS. REPEAT TROPONIN DRAWN.
--- NOTE | 2018-06-27 21:02 | NUR ---
REPORT OF PT FROM JULIAN ROSADO AND ASSUMING CARE.
[2018-06-27 21:44] LABS: TROPONIN I 0.137 ng/mL (0.000-0.045)
--- NOTE | 2018-06-27 22:26 | NUR ---
PT D/C WITH D/C SUMMARY, WHICH SHE LEFT BEHIND. PT AMBULATED TO REGISTRATION DESK WITH WALKER FOR D/C HOME WITH TAXI VOUCHER. PT HAD TAXI WAITING IN LOBBY FOR D/C HOME.
[2018-06-27 22:27] VITALS: BP 144/89
== END 2018-06-27 22:31 | disposition home or self-care (01) ==
LOC: ED 17:46
DX: R07.89 Other chest pain (principal); I25.10 Atherosclerotic heart disease of native coronary artery without angina pectoris; I11.9 Hypertensive heart disease without heart failure; I25.2 Old myocardial infarction; M19.90 Unspecified osteoarthritis, unspecified site; E78.5 Hyperlipidemia, unspecified; Z72.9 Problem related to lifestyle, unspecified; Z96.643 Presence of artificial hip joint, bilateral; F10.10 Alcohol abuse, uncomplicated
CPT/HCPCS: 36415; 71045; 80048; 82040; 84484; 85025; 93005; 96374; 99284; J1885

== ENCOUNTER 2018-08-06 12:01 | Inpatient (IN) | payer MEDICAID ==
[~2018-08-06] VITALS: Ht 134.6 cm; Wt 55.9 kg
[2018-08-06 12:30] LABS: MEAN CORPUSCULAR HGB CONC 32.3 g/dL (32.4-35.8); MEAN CORPUSCULAR VOLUME 80.4 fL (80-100); MEAN PLATELET VOLUME 9.1 fL (7.4-10.4); PLATELET COUNT 315 x10^3/uL (130-400); RED BLOOD COUNT 3.92 x10^6/uL (3.82-5.3); RED CELL DISTRIBUTION WIDTH 23.1 % (9.6-15.2)
[2018-08-06] MEDS ORDERED: SODIUM CHLORIDE FLUSH 10ML SYR IVF ONE (12:30)
[2018-08-06] MEDS ORDERED: HYDROmorphone 2 MG/ML, 1ML IVPush PRN (12:30)
[2018-08-06] MEDS ORDERED: ONDANSETRON 2MG/ML, 2ML IVPush ONE (12:30)
[2018-08-06 12:37] LABS: ALBUMIN 3.6 g/dL (3.4-5.0); ANION GAP 11 mmol/L (5-15); CALCIUM 8.4 mg/dL (8.5-10.1); CHLORIDE 108 mmol/L (98-107); CREATININE 0.53 mg/dL (0.55-1.02); INTERNATIONAL NORMALIZED RATIO 1.08 (0.93-1.1); PROTHROMBIN TIME 11.3 Seconds (9.6-11.5)
[2018-08-06] MEDS ORDERED: HYDROmorphone 1 MG/ML, 1ML ONE (12:40)
[2018-08-06] MEDS ORDERED: ONDANSETRON 2MG/ML, 2ML ONE (12:40)
[2018-08-06 12:45] LABS: MD YES
[2018-08-06 12:48] LABS: BASOS#(MANUAL) 0.09 x10^3/uL (0-0.1); BASOS% (MANUAL) 1 % (0-1); EOS#(MANUAL) 0.09 x10^3/uL (0.0-0.4); EOS% (MANUAL) 1 % (1-7); LYMPH#(MANUAL) 2.05 x10^3/uL (1-3.4); LYMPHS% (MANUAL) 22 % (22-44); MONOS#(MANUAL) 0.47 x10^3/uL (0.3-2.7); MONOS% (MANUAL) 5 % (2-9); SEGS% (MANUAL) 71 % (42-75)
[2018-08-06 12:49] LABS: <PLATELET ESTIMATE> ADEQUATE; <PLT MORPHOLOGY> NORMAL PLT MORPH; ANISOCYTOSIS 1+; HYPOCHROMIA 1+; MICROCYTOSIS 1+; POLYCHROMASIA 1+
[2018-08-06] MEDS ORDERED: SODIUM CHLORIDE FLUSH 10ML SYR IVF PRN (14:00)
[2018-08-06] MEDS ORDERED: ERGOCALCIFEROL 50,000 UNIT CAPSULE PO SCH (15:00)
[2018-08-06] MEDS ORDERED: ACETAMINOPHEN 325 MG TABLET PO PRN (15:00)
[2018-08-06] MEDS ORDERED: ENALAPRILAT 1.25 MG/ML, 2ML IVPush PRN (15:00)
[2018-08-06] MEDS ORDERED: hydrALAzine 20 MG/ML, 1ML IVPush PRN (15:00)
[2018-08-06] MEDS ORDERED: BACLOFEN 10 MG TABLET PO PRN (15:00)
[2018-08-06] MEDS ORDERED: LORATADINE 10 MG TABLET PO PRN (15:00)
[2018-08-06] MEDS ORDERED: GABAPENTIN 300 MG CAPSULE PO PRN (15:00)
[2018-08-06] MEDS ORDERED: GUAIFENESIN/DM 200-20MG, 10ML UDC PO PRN (15:00)
[2018-08-06] MEDS ORDERED: HEPARIN 5,000 UNITS/ML, 1ML SQ SCH (15:00)
[2018-08-06] MEDS ORDERED: BISACODYL 10 MG SUPP PR PRN (15:00)
[2018-08-06] MEDS ORDERED: POLYETHYLENE GLYCOL 17 GM PACKET PO PRN (15:00)
[2018-08-06] MEDS ORDERED: DOCUSATE 100 MG CAPSULE PO PRN (15:00)
[2018-08-06 15:12] LABS: FREE T4 (FREE THYROXINE) 1.54 ng/dL (0.76-1.46); THYROID STIMULATING HORMONE 0.672 mIU/L (0.358-3.740)
--- NOTE | 2018-08-06 15:13 | NUR ---
TASK RN: 0.5mg IV dilaudid wasted with JULIAN Ochoa as witness.
--- NOTE | 2018-08-06 15:18 | NUR ---
Primary RN: 0.5 of dilaudid wasted with Ranjeet JORDAN
[2018-08-06 15:30] VITALS: BP 157/79
[2018-08-06] MEDS: POTASSIUM CHLORIDE 20 MEQ, MAGNESIUM SULFATE 2 GM, THIAMINE 200 MG, MVI ADULT 10 ML, FO... IV SCH (16:35)
[2018-08-06 16:59] VITALS: BP 159/79
[2018-08-06 20:28] VITALS: BP 166/81
[2018-08-06] MEDS ORDERED: OMEPRAZOLE 20 MG CAPSULE.DR PO SCH (21:00)
[2018-08-06] MEDS ORDERED: GABAPENTIN 300 MG CAPSULE PO SCH (21:00)
[2018-08-06] MEDS ORDERED: RISPERIDONE 1 MG TABLET PO SCH (21:00)
[2018-08-06] MEDS ORDERED: METOPROLOL TARTRATE 25 MG TABLET PO SCH (21:00)
[2018-08-06] MEDS ORDERED: SUCRALFATE 1 GM TABLET PO SCH (21:00)
[2018-08-06] MEDS ORDERED: QUETIAPINE 25MG TABLET PO SCH (21:00)
[2018-08-07] MEDS ORDERED: GABAPENTIN 300 MG CAPSULE PO PRN
[2018-08-07] MEDS ORDERED: POLYETHYLENE GLYCOL 17 GM PACKET PO PRN
[2018-08-07] MEDS ORDERED: LORATADINE 10 MG TABLET PO PRN
[2018-08-07] MEDS ORDERED: ENALAPRILAT 1.25 MG/ML, 2ML IV PRN
[2018-08-07] MEDS ORDERED: BISACODYL 5 MG EC TABLET PO PRN
[2018-08-07] MEDS ORDERED: POLYETHYLENE GLYCOL 17 GM PACKET NG PRN
[2018-08-07] MEDS ORDERED: DOCUSATE 100 MG CAPSULE PO PRN
[2018-08-07] MEDS ORDERED: hydrALAzine 20 MG/ML, 1ML IV PRN
[2018-08-07] MEDS ORDERED: GUAIFENESIN 100 MG/5 ML, 5ML UDC PO PRN
[2018-08-07] MEDS ORDERED: ACETAMINOPHEN 325 MG TABLET PO PRN
[2018-08-07] MEDS: POTASSIUM CHLORIDE 20 MEQ, MAGNESIUM SULFATE 2 GM, THIAMINE 200 MG, MVI ADULT 10 ML, FO... IV SCH ×2 (00:50→11:52)
[2018-08-07 00:53] VITALS: BP 172/99
[2018-08-07] MEDS: OMEPRAZOLE 20 MG CAPSULE.DR PO SCH ×2 (05:27→16:45)
[2018-08-07] MEDS: METOPROLOL TARTRATE 25 MG TABLET PO SCH ×2 (05:27→17:30)
[2018-08-07] MEDS: ASPIRIN 81 MG TABLET EC PO SCH (05:27)
[2018-08-07] MEDS: SUCRALFATE 1 GM TABLET PO SCH ×4 (05:28→20:30)
[2018-08-07] MEDS ORDERED: ASPIRIN 81 MG TABLET EC PO SCH (06:00)
[2018-08-07] MEDS ORDERED: BACLOFEN 10 MG TABLET PO PRN ×2 (07:00)
[2018-08-07] MEDS ORDERED: LORazepam 1MG TABLET PO PRN ×4 (07:00)
[2018-08-07] MEDS ORDERED: LORazepam 0.5MG TABLET PO PRN (07:00)
[2018-08-07 07:16] LABS: MEAN CORPUSCULAR HEMOGLOBIN 25.2 pg (27.0-34.8); MEAN CORPUSCULAR HGB CONC 31.6 g/dL (32.4-35.8); MEAN CORPUSCULAR VOLUME 79.5 fL (80-100); PLATELET COUNT 295 x10^3/uL (130-400); RED BLOOD COUNT 3.87 x10^6/uL (3.82-5.3); RED CELL DISTRIBUTION WIDTH 23.3 % (9.6-15.2)
[2018-08-07 07:25] LABS: ALBUMIN 3.1 g/dL (3.4-5.0); ANION GAP 7 mmol/L (5-15); CALCIUM 8.2 mg/dL (8.5-10.1); CHLORIDE 111 mmol/L (98-107)
[2018-08-07 07:29] LABS: ALANINE AMINOTRANSFERASE 38 U/L (12-78); ALKALINE PHOSPHATASE 119 U/L (45-117); BILIRUBIN,TOTAL 0.8 mg/dL (0.2-1.0); CREATININE 0.42 mg/dL (0.55-1.02)
[2018-08-07 07:34] LABS: BASOPHILS # (AUTO) 0.05 x10^3/uL (0-0.1); BASOPHILS % (AUTO) 1 % (0-1); EOSINOPHILS # (AUTO) 0.11 x10^3/uL (0-0.4); EOSINOPHILS % (AUTO) 2 % (1-7); LYMPHOCYTES # (AUTO) 1.23 x10^3/uL (1-3.4); LYMPHOCYTES % (AUTO) 18 % (22-44); MD SCAN; MONOCYTES # (AUTO) 1.02 x10^3/uL (0.2-0.8); MONOCYTES % (AUTO) 15 % (2-9); NEUTROPHILS # (AUTO) 4.54 x10^3/uL (1.8-6.8); NEUTROPHILS % (AUTO) 65 % (42-75)
[2018-08-07 08:00] VITALS: BP 170/79
[2018-08-07] MEDS: AMLODIPINE 2.5 MG TABLET PO SCH (08:01)
[2018-08-07] MEDS: LISINOPRIL 20 MG TABLET PO SCH (08:01)
[2018-08-07] MEDS: GABAPENTIN 300 MG CAPSULE PO SCH ×2 (08:01→20:30)
[2018-08-07] MEDS: THIAMINE 100MG TABLET PO SCH (08:01)
[2018-08-07] MEDS: FOLIC ACID 1 MG TABLET PO SCH (08:01)
[2018-08-07] MEDS ORDERED: MULTIVITAMIN 1 TABLET ONE (08:07)
[2018-08-07] MEDS: MULTIVITAMIN 1 TABLET PO SCH (08:08)
[2018-08-07 08:49] LABS: AMPHETAMINE SCREEN, URINE Negative (Negative); BARBITURATE SCREEN, URINE Negative (Negative); BENZODIAZEPINE SCREEN, URINE Positive (Negative); CANNABINOID SCREEN, URINE Negative (Negative); COCAINE SCREEN, URINE Negative (Negative); METHADONE SCREEN, URINE Negative (Negative); OPIATE SCREEN, URINE Negative (Negative)
[2018-08-07] MEDS ORDERED: FOLIC ACID 1 MG TABLET PO SCH (09:00)
[2018-08-07] MEDS ORDERED: CHLORDIAZEPOXIDE 25 MG CAPSULE PO SCH (09:00)
[2018-08-07] MEDS ORDERED: LISINOPRIL 20 MG TABLET PO SCH (09:00)
[2018-08-07] MEDS ORDERED: AMLODIPINE 2.5 MG TABLET PO SCH (09:00)
[2018-08-07] MEDS ORDERED: ERGOCALCIFEROL 50,000 UNIT CAPSULE PO SCH (09:00)
[2018-08-07] MEDS ORDERED: MULTIVITAMIN 1 TABLET PO SCH (09:00)
[2018-08-07] MEDS ORDERED: THIAMINE 100MG TABLET PO SCH (09:00)
[2018-08-07] MEDS ORDERED: AMLODIPINE 5 MG TABLET PO SCH (09:00)
[2018-08-07 13:09] VITALS: BP 101/56
[2018-08-07] MEDS: CHLORDIAZEPOXIDE 10 MG CAPSULE PO SCH ×2 (16:46→20:30)
[2018-08-07 17:30] VITALS: BP 98/63
[2018-08-07 17:42] LABS: TROPONIN I 0.082 ng/mL (0.000-0.045)
[2018-08-07 19:09] VITALS: BP 100/63
[2018-08-08 02:30] VITALS: BP 108/75
[2018-08-08] MEDS: SUCRALFATE 1 GM TABLET PO SCH ×2 (05:23→09:14)
[2018-08-08] MEDS: METOPROLOL TARTRATE 25 MG TABLET PO SCH (05:23)
[2018-08-08] MEDS: OMEPRAZOLE 20 MG CAPSULE.DR PO SCH (05:23)
[2018-08-08] MEDS: ASPIRIN 81 MG TABLET EC PO SCH (05:23)
[2018-08-08 05:59] LABS: ANION GAP 5 mmol/L (5-15); CALCIUM 8.2 mg/dL (8.5-10.1); CHLORIDE 113 mmol/L (98-107)
[2018-08-08 06:02] LABS: CREATININE 0.55 mg/dL (0.55-1.02)
[2018-08-08 06:41] LABS: TROPONIN I 0.067 ng/mL (0.000-0.045)
[2018-08-08 07:26] VITALS: BP 145/82
[2018-08-08] MEDS: GABAPENTIN 300 MG CAPSULE PO SCH (09:00)
[2018-08-08] MEDS: FOLIC ACID 1 MG TABLET PO SCH (09:00)
[2018-08-08] MEDS: THIAMINE 100MG TABLET PO SCH (09:00)
[2018-08-08] MEDS: LISINOPRIL 20 MG TABLET PO SCH (09:00)
[2018-08-08] MEDS: MULTIVITAMIN 1 TABLET PO SCH (09:00)
[2018-08-08] MEDS: CHLORDIAZEPOXIDE 10 MG CAPSULE PO SCH (09:00)
[2018-08-08] MEDS: AMLODIPINE 2.5 MG TABLET PO SCH (09:00)
== END 2018-08-08 09:53 | disposition left against medical advice (07) | DRG 544 ==
LOC: ED 13:45 → EDIP 13:46 → UNDOADMIN 13:46 → 5SO 13:46 → ED 14:20 → EDIP 15:24 → 4NOR 15:24 → ED 15:48 → 4NOR 16:21
PROVIDERS: ADMIT Hospitalist; ATTEND Hospitalist
DX: M48.55XA Collapsed vertebra, not elsewhere classified, thoracolumbar region, initial encounter for fracture (principal); I10 Essential (primary) hypertension; F10.10 Alcohol abuse, uncomplicated; E78.5 Hyperlipidemia, unspecified; I25.10 Atherosclerotic heart disease of native coronary artery without angina pectoris; M25.551 Pain in right hip; K74.60 Unspecified cirrhosis of liver; M19.90 Unspecified osteoarthritis, unspecified site; M25.561 Pain in right knee; M17.11 Unilateral primary osteoarthritis, right knee; Z96.643 Presence of artificial hip joint, bilateral; Z59.0 Homelessness; I25.2 Old myocardial infarction; Z82.49 Family history of ischemic heart disease and other diseases of the circulatory system; Z95.5 Presence of coronary angioplasty implant and graft; Z91.041 Radiographic dye allergy status
CPT/HCPCS: 36415; 72110; 73564; 99285; J7042; 72131; 80048; 80053; 80307; 82040; 83735; 84100; 84439; 84443; 84484; 85025; 85610; 85730; 93005; G0378; J3411; J3475; J3480

== ENCOUNTER 2018-08-09 04:04 | Emergency (ER) | payer MEDICAID ==
[~2018-08-09] VITALS: Ht 144.8 cm; Wt 54.5 kg
--- NOTE | 2018-08-09 05:05 | NUR ---
TERRELL HAYS HAD BEEN IN TO EVAL PT. AND DISCUSS POC. PT. HAS CONTINUOUS PULSE OX AND B/P MONITORS IN PLACE. CALL LIGHT IN REACH. ALL SAFETY MEASURS OBSERVED.
--- NOTE | 2018-08-09 06:47 | NUR ---
PT. RESTING ON GURNEY WITH EYES CLOSED; NADN. RESP EVEN-NON LABORED. SAFETY MEASURES OBSRVED.
--- NOTE | 2018-08-09 07:01 | NUR ---
REPORT TO HAN RN'S TO ASSUME PT. CARE.
[2018-08-09 07:12] VITALS: BP 123/72
--- NOTE | 2018-08-09 07:12 | NUR ---
Report from Edith JORDAN. Patient sleeping soundly. Even rise/fall of chest. VSS.
--- NOTE | 2018-08-09 09:08 | NUR ---
Patient ambulated to bathroom with steady gait, assisted by walker.
--- NOTE | 2018-08-09 10:40 | NUR ---
Patient/Caregiver given discharge instructions and they have confirmed that they understand the instructions. Patient ambulatory with steady gait with walker.
== END 2018-08-09 11:03 | disposition home or self-care (01) ==
LOC: ED 08:07
DX: F10.120 Alcohol abuse with intoxication, uncomplicated (principal); I10 Essential (primary) hypertension; I25.2 Old myocardial infarction; I25.10 Atherosclerotic heart disease of native coronary artery without angina pectoris; E78.5 Hyperlipidemia, unspecified; Z59.0 Homelessness
CPT/HCPCS: 99283

== ENCOUNTER 2018-08-09 17:38 | Emergency (ER) | payer SELFPAY ==
--- NOTE | 2018-08-09 18:05 | NUR ---
PT THROWING BELONGINGS ON FLOOR. CALL LIGHT AND WARM BLANKET PROVIDED TO PT.
--- NOTE | 2018-08-09 18:33 | NUR ---
PT REFUSING BREATHALYZER. RN FOUND PAPERWORK OF PT'S ON FLOOR. NAME AND DATE OF PROVIDED TO REGISTRATION. PER SM PAPERWORK PT WAS SEEN IN ED EARLY THIS AM AND WAS DC AT 0403 FOR ETOH. PT WAS ALSO CITED TODAY BY [employer] FOR OPEN CONTAINER OF VODKA IN PUBLIC. PT STILL BEING UNCOOPERATIVE WITH ALL CARE. WELDER ASSEMBLER ERICA UPDATED. BED RAILS UP. CALL LIGHT WITHIN REACH. RN TO CONTINUE TO MONITOR.
--- NOTE | 2018-08-09 18:57 | NUR ---
REPORT TO JULIAN GRIDER.
--- NOTE | 2018-08-09 19:00 | NUR ---
RECEIVED REPORT FROM JULIAN VELA; PT. MOVE TO ED 41 AND REPORT TO JULIAN JUSTIN TO ASSUME PT. CARE.
--- NOTE | 2018-08-09 21:02 | NUR ---
REPORT FROM JULIAN JUSTIN TO ASSUME PT. CARE.
--- NOTE | 2018-08-09 22:15 | NUR ---
PT. REMAINS ON GURNEY WITH NADN. EVEN, NON-LABORED RESPIRATIONS VISIBLE. SKIN PWD. PT. UNABLE TO AMBULATE AT THIS TIME. WILL CONTINUE TO MONITOR.
--- NOTE | 2018-08-09 23:58 | NUR ---
PT. SITTING AT BOTTOM OF [place]UR[place]THWICK. PT. UNCOOPERATIVE WITH STAFF. REFUSING TO PUT ON SHOES AND GATHER BELONGINGS. BELONGINGS GATHERED FOR PT. AND SHE CONTINUES TO THROW THEM AROUND ROOM. UNABLE TO DETERMINE IF PT. ABLE TO AMBULATE AT THIS TIME.
--- NOTE | 2018-08-10 00:13 | NUR ---
PT. UP AMBULATING AROUND ROOM WITH FWW; PT. LAYS ON BED WHEN RN WALKS IN AND REFUSING TO GET UP. SECURITY CALLED TO HELP ESCORT PT. OUT OF ED. PT. ABLE TO MAINTAIN OWN BODY WEIGHT TO PUT ON COAT. ALL BELONGINGS RE-GATHERED AND GIVEN BACK TO PT.
[2018-08-10 00:14] VITALS: BP 127/86
== END 2018-08-10 00:16 | disposition home or self-care (01) ==
LOC: EDBD 17:38 → MERGE 17:38 → ED 22:32
DX: F10.220 Alcohol dependence with intoxication, uncomplicated (principal); I10 Essential (primary) hypertension; M19.90 Unspecified osteoarthritis, unspecified site; E78.5 Hyperlipidemia, unspecified; Z96.643 Presence of artificial hip joint, bilateral
CPT/HCPCS: 99283

== ENCOUNTER 2018-09-13 18:24 | Inpatient (IN) | payer OTHER ==
[~2018-09-13] VITALS: Ht 149.9 cm; Wt 59.6 kg
--- NOTE | 2018-09-13 18:38 | NUR ---
PT. ARRIVES BY [facility] WITH C/O RIGHT LEG PAIN AND INABILITY TO AMBULATE. PT. ALSO C/O CHEST WALL PAIN AND A MORE. PT. STATES SHE GETS HEADACHES WHEN HER BLOOD PRESSURE IS ELEVATED. PT. HAS THE CP MONITOR IN PLACE. SIDERAILS ARE UP X 2 WITH THE CALL LIGHT IN PLACE. HOB IS ELEVATED GREATER THAN 30 DEGREES. PT. WAS GIVEN A BLANKET FOR WARMTH. REPORT TO THE PRIMARY RN WM.
--- NOTE | 2018-09-13 19:05 | NUR ---
[facility] OXYGEN THERAPIST #[id number] USED FOR PT ASSESSMENT AND HISTORY DR CEBALLOS AT BEDSIDE.
[2018-09-13] MEDS ORDERED: ONDANSETRON 2MG/ML, 2ML IVPush ONE (19:30)
[2018-09-13] MEDS ORDERED: MORPHINE SULFATE 4 MG/ML, 1ML ONE (19:30)
[2018-09-13] MEDS ORDERED: SODIUM CHLORIDE FLUSH 10ML SYR IVF ONE (19:30)
[2018-09-13] MEDS ORDERED: ONDANSETRON 2MG/ML, 2ML ONE (19:30)
--- NOTE | 2018-09-13 19:37 | NUR ---
PT REFUSING XRAYS
[2018-09-13] MEDS: MORPHINE SULFATE 4 MG/ML, 1ML IVPush PRN ×2 (19:59→21:24)
--- NOTE | 2018-09-13 20:05 | NUR ---
PIV STARTED AND PT MED FOR PAIN NOTED. PT TO US WITH TECH TRANSPORT. PT TO GO TO RADIOLOGY FOLLOWING US.
[2018-09-13 20:15] LABS: MEAN CORPUSCULAR HEMOGLOBIN 26.9 pg (27.0-34.8); MEAN CORPUSCULAR HGB CONC 32.2 g/dL (32.4-35.8); MEAN CORPUSCULAR VOLUME 83.7 fL (80-100); MEAN PLATELET VOLUME 7.9 fL (7.4-10.4); PLATELET COUNT 346 x10^3/uL (130-400); RED BLOOD COUNT 3.92 x10^6/uL (3.82-5.3); RED CELL DISTRIBUTION WIDTH 23.3 % (9.6-15.2)
[2018-09-13 20:21] LABS: INTERNATIONAL NORMALIZED RATIO 1.04 (0.93-1.1); PROTHROMBIN TIME 10.9 Seconds (9.6-11.5)
[2018-09-13 20:24] LABS: ALANINE AMINOTRANSFERASE 35 U/L (12-78); ALBUMIN 3.4 g/dL (3.4-5.0); ANION GAP 12 mmol/L (5-15); CALCIUM 8.3 mg/dL (8.5-10.1); CHLORIDE 113 mmol/L (98-107); CREATININE 0.56 mg/dL (0.55-1.02)
--- NOTE | 2018-09-13 20:26 | NUR ---
PT RTD FROM US AND XRAY, ALL TESTS COMPLETED W/O DIFFICULTY. PT RPTS PAIN /. PT REQUESTING WATER, INSTRUCTED THAT SHE WILL NEED TO WAIT UNTIL TEST RESULTED. CALL LIGHT W/I REACH, VSS, NAD NOTED.
[2018-09-13 20:29] LABS: ALKALINE PHOSPHATASE 165 U/L (45-117); BILIRUBIN,TOTAL 0.5 mg/dL (0.2-1.0); TOTAL PROTEIN 7.8 g/dL (6.4-8.2)
[2018-09-13 20:32] LABS: BASOPHILS # (AUTO) 0.08 x10^3/uL (0-0.1); BASOPHILS % (AUTO) 1 % (0-1); EOSINOPHILS # (AUTO) 0.11 x10^3/uL (0-0.4); EOSINOPHILS % (AUTO) 1 % (1-7); LYMPHOCYTES % (AUTO) 41 % (22-44); MD SCAN; MONOCYTES # (AUTO) 0.58 x10^3/uL (0.2-0.8); MONOCYTES % (AUTO) 7 % (2-9); NEUTROPHILS # (AUTO) 4.23 x10^3/uL (1.8-6.8); NEUTROPHILS % (AUTO) 50 % (42-75)
[2018-09-13] MEDS ORDERED: SODIUM CHLORIDE 0.9% 1,000 ML IV ONE (20:52)
[2018-09-13] MEDS ORDERED: SODIUM CHLORIDE FLUSH 10ML SYR IVF PRN (21:00)
[2018-09-13] MEDS ORDERED: LORazepam 2 MG/ML, 1ML IV PRN ×2 (21:00)
--- NOTE | 2018-09-13 21:26 | NUR ---
PT C/O PAIN 9/10, MED NOTED. WATER PROVIDED AT BEDSIDE.
--- NOTE | 2018-09-13 21:37 | NUR ---
[facility] SLIDE MAKER #[id number] USED TO REVIEW MEDICATION LIST
--- NOTE | 2018-09-13 22:37 | NUR ---
REPORT RECEIVED FROM WM JORDAN.
--- NOTE | 2018-09-13 22:50 | NUR ---
SBAR RPT TO JULIAN LINO
--- NOTE | 2018-09-13 23:11 | NUR ---
pt was not able to provide urine sample at this time.
--- NOTE | 2018-09-13 23:27 | NUR ---
pt medicated per emar for pain. pt tolerated well.
--- NOTE | 2018-09-14 00:28 | NUR ---
pt sleeping in hospital bed. resps even and unlabored. all monitors in place. call light within reach.
--- NOTE | 2018-09-14 03:51 | NUR ---
pt sleeping in hospital bed. resps even and unlabored. all monitors in place. call light within reach.
--- NOTE | 2018-09-14 04:10 | NUR ---
PT URINATING IN BEDPAN AT THIS TIME.
--- NOTE | 2018-09-14 04:57 | NUR ---
pt sleeping in hospital bed. resps even and unlabored. all monitors in place. call light within reach.
[2018-09-14 05:33] LABS: MEAN CORPUSCULAR HEMOGLOBIN 27.1 pg (27.0-34.8); MEAN CORPUSCULAR HGB CONC 32.3 g/dL (32.4-35.8); MEAN CORPUSCULAR VOLUME 83.9 fL (80-100); MEAN PLATELET VOLUME 7.5 fL (7.4-10.4); PLATELET COUNT 279 x10^3/uL (130-400); RED BLOOD COUNT 3.61 x10^6/uL (3.82-5.3)
[2018-09-14] MEDS ORDERED: ASPIRIN 81 MG TABLET EC ONE (05:50)
[2018-09-14 05:54] LABS: BASOPHILS # (AUTO) 0.05 x10^3/uL (0-0.1); BASOPHILS % (AUTO) 1 % (0-1); EOSINOPHILS % (AUTO) 3 % (1-7); LYMPHOCYTES % (AUTO) 36 % (22-44); MD SCAN; MONOCYTES # (AUTO) 0.44 x10^3/uL (0.2-0.8); MONOCYTES % (AUTO) 7 % (2-9); NEUTROPHILS # (AUTO) 3.11 x10^3/uL (1.8-6.8); NEUTROPHILS % (AUTO) 53 % (42-75)
[2018-09-14] MEDS: ASPIRIN 81 MG TABLET EC PO SCH (06:13)
--- NOTE | 2018-09-14 06:14 | NUR ---
PT MEDICATED PER EMAR. PT TOLERATED WELL.
[2018-09-14] MEDS ORDERED: LORazepam 2 MG/ML, 1ML ONE (06:28)
--- NOTE | 2018-09-14 06:35 | NUR ---
pt medicated per emar for pain/ciwa score 10 at this time. pt tolerated well.
--- NOTE | 2018-09-14 06:56 | NUR ---
spoke w/ lab about pt trop scheduled to be drawn at 0500. per lab will add on cmp and troponin to blood drawn at 0554
--- NOTE | 2018-09-14 07:04 | NUR ---
report given to robert peterson.
--- NOTE | 2018-09-14 07:05 | NUR ---
RECEIVED REPORT FROM DENIZ LINO RN. PT SLEEPING IN BED. NADN. ROLLE.
[2018-09-14 07:17] LABS: ANION GAP 11 mmol/L (5-15); CALCIUM 7.7 mg/dL (8.5-10.1); CHLORIDE 113 mmol/L (98-107); CREATININE 0.39 mg/dL (0.55-1.02)
[2018-09-14 07:21] LABS: TROPONIN I 0.071 ng/mL (0.000-0.045)
--- NOTE | 2018-09-14 08:45 | NUR ---
PT PROVIDED W/ BREAKFAST TRAY.
[2018-09-14] MEDS: AMLODIPINE 2.5 MG TABLET PO SCH (09:33)
[2018-09-14] MEDS: METOPROLOL TARTRATE 25 MG TABLET PO SCH ×2 (09:33→20:28)
[2018-09-14] MEDS ORDERED: MORPHINE SULFATE 4 MG/ML, 1ML ONE (09:36)
[2018-09-14] MEDS ORDERED: OMEPRAZOLE 20 MG CAPSULE.DR ONE (09:36)
[2018-09-14] MEDS ORDERED: LISINOPRIL 20 MG TABLET ONE (09:36)
[2018-09-14] MEDS: OMEPRAZOLE 20 MG CAPSULE.DR PO SCH ×2 (09:41→20:28)
[2018-09-14] MEDS: LISINOPRIL 40 MG TABLET PO SCH (09:41)
[2018-09-14] MEDS: MORPHINE SULFATE 4 MG/ML, 1ML IVPush PRN (09:42)
--- NOTE | 2018-09-14 10:30 | NUR ---
Break RN note: Pt resting in bed with eyes closed, resp even and unlabored, NADN.
--- NOTE | 2018-09-14 10:43 | NUR ---
Break RN note: First attempt to call report to floor.
--- NOTE | 2018-09-14 11:10 | NUR ---
REPORT GIVEN TO VIJAYA, RECEIVING RN. ALL QUESTIONS ANSWERED. AWAITING PT TRANSPORT.
[2018-09-14 12:28] VITALS: BP 155/76
[2018-09-14] MEDS ORDERED: POTASSIUM CHLORIDE 20 MEQ TAB.ER.PRT PO ONE (13:30)
[2018-09-14 13:53] VITALS: BP 143/72
[2018-09-14 15:53] LABS: MICROSCOPIC INDICATED
[2018-09-14 16:57] LABS: CULTURE INDICATED? NO
[2018-09-14 18:56] VITALS: BP 146/77
[2018-09-14] MEDS ORDERED: QUETIAPINE 25MG TABLET PO SCH (21:00)
[2018-09-15 01:06] VITALS: BP 118/65
[2018-09-15] MEDS: ASPIRIN 81 MG TABLET EC PO SCH (05:30)
[2018-09-15 08:05] VITALS: BP 155/83
[2018-09-15] MEDS: LISINOPRIL 40 MG TABLET PO SCH (09:04)
[2018-09-15] MEDS: AMLODIPINE 2.5 MG TABLET PO SCH (09:04)
[2018-09-15] MEDS: OMEPRAZOLE 20 MG CAPSULE.DR PO SCH (09:04)
[2018-09-15] MEDS: METOPROLOL TARTRATE 25 MG TABLET PO SCH (09:05)
[2018-09-15 09:47] LABS: TROPONIN I 0.077 ng/mL (0.000-0.045)
[2018-09-15] MEDS ORDERED: ACETAMINOPHEN 325 MG TABLET PO ONE (10:30)
[2018-09-15 14:00] VITALS: BP 152/87
== END 2018-09-15 17:40 | disposition home or self-care (01) | DRG 313 ==
LOC: ED 20:51 → EDIP 20:52 → 5SO 09-14 08:51
PROVIDERS: ADMIT Internal Medicine; ATTEND Internal Medicine
DX: R07.9 Chest pain, unspecified (principal); F10.230 Alcohol dependence with withdrawal, uncomplicated; F10.221 Alcohol dependence with intoxication delirium; G89.29 Other chronic pain; E78.5 Hyperlipidemia, unspecified; E83.42 Hypomagnesemia; E87.6 Hypokalemia; L71.9 Rosacea, unspecified; Z96.643 Presence of artificial hip joint, bilateral; L40.9 Psoriasis, unspecified; M19.90 Unspecified osteoarthritis, unspecified site; M25.561 Pain in right knee; Y90.0 Blood alcohol level of less than 20 mg/100 ml; I10 Essential (primary) hypertension; I25.10 Atherosclerotic heart disease of native coronary artery without angina pectoris; I25.2 Old myocardial infarction; Z91.14 Patient's other noncompliance with medication regimen; Z59.0 Homelessness; Z63.8 Other specified problems related to primary support group; Z79.82 Long term (current) use of aspirin; Z82.49 Family history of ischemic heart disease and other diseases of the circulatory system; Z95.5 Presence of coronary angioplasty implant and graft
CPT/HCPCS: 36415; 71045; 80048; 80053; 80307; 81001; 83690; 83880; 84484; 85025; 85610; 85730; 93005; G0378; J2405; J2060; J7030

== ENCOUNTER 2018-10-01 20:27 | Emergency (ER) | payer MEDICAID ==
[~2018-10-01] VITALS: Ht 152.4 cm; Wt 60.0 kg
--- NOTE | 2018-10-01 20:43 | NUR ---
PT PRESENTS TO ED C/O L SIDED AND NO ASSOCIATED SOB. CP W/ 2 IL'S W/ STENTS PLACED. Given 2 doses of nitro w/ no relief and 324 mg asa per [facility]. States surgery on leg a month ago at [facility], but not sure what for. All monitoring applied. Vss. Call light within reach.
[2018-10-01 21:21] LABS: ALANINE AMINOTRANSFERASE 55 U/L (12-78); ALBUMIN 3.2 g/dL (3.4-5.0); ANION GAP 10 mmol/L (5-15); CALCIUM 7.5 mg/dL (8.5-10.1); CHLORIDE 113 mmol/L (98-107); CREATININE 0.61 mg/dL (0.55-1.02)
[2018-10-01 21:25] LABS: ALKALINE PHOSPHATASE 182 U/L (45-117); BILIRUBIN,TOTAL 0.5 mg/dL (0.2-1.0); TOTAL PROTEIN 7.8 g/dL (6.4-8.2)
[2018-10-01 21:41] LABS: MD YES; MEAN CORPUSCULAR HEMOGLOBIN 28.1 pg (27.0-34.8); MEAN CORPUSCULAR HGB CONC 32.3 g/dL (32.4-35.8); MEAN PLATELET VOLUME 8.1 fL (7.4-10.4); PLATELET COUNT 175 x10^3/uL (130-400); RED BLOOD COUNT 3.61 x10^6/uL (3.82-5.3); RED CELL DISTRIBUTION WIDTH 23.2 % (9.6-15.2)
--- NOTE | 2018-10-01 21:41 | NUR ---
Pt sleeping comfortably on gurney. Rr even and unlabored. Nadn. Awaiting results.
[2018-10-01 21:44] LABS: ANISOCYTOSIS 1+; BASOS#(MANUAL) 0.12 x10^3/uL (0-0.1); BASOS% (MANUAL) 2 % (0-1); EOS#(MANUAL) 0.18 x10^3/uL (0.0-0.4); EOS% (MANUAL) 3 % (1-7); LYMPHS% (MANUAL) 45 % (22-44); MONOS#(MANUAL) 0.24 x10^3/uL (0.3-2.7); MONOS% (MANUAL) 4 % (2-9); SEG#(MANUAL) 2.76 x10^3/uL (1.8-6.8); SEGS% (MANUAL) 46 % (42-75)
[2018-10-01 21:45] LABS: <PLATELET ESTIMATE> ADEQUATE; <PLT MORPHOLOGY> NORMAL PLT MORPH; OVALOCYTES 1+
--- NOTE | 2018-10-01 22:05 | NUR ---
Pt sleeping comfortably on gurney. Rr even and unlabored. Nadn. Awaiting repeat trop at 0000.
[2018-10-01 23:01] VITALS: BP 108/70
--- NOTE | 2018-10-01 23:01 | NUR ---
Pt desating on ra while asleep. Placed on 2L nc.
--- NOTE | 2018-10-01 23:57 | NUR ---
Pt sleeping comfortably on gurney. Rr even and unlabored. Nadn. Awaiting repeat trop at 0000.
--- NOTE | 2018-10-02 00:18 | NUR ---
Lab at bedside. Awaiting trop.
[2018-10-02 00:36] LABS: TROPONIN I 0.097 ng/mL (0.000-0.045)
== END 2018-10-02 01:36 | disposition home or self-care (01) ==
LOC: ED 22:05
DX: R07.89 Other chest pain (principal); I25.2 Old myocardial infarction; I25.10 Atherosclerotic heart disease of native coronary artery without angina pectoris; I10 Essential (primary) hypertension; I24.9 Acute ischemic heart disease, unspecified
CPT/HCPCS: 36415; 71045; 80053; 83690; 84484; 85025; 93005; 99284

== ENCOUNTER 2018-10-22 18:58 | Emergency (ER) | payer MEDICAID ==
[~2018-10-22] VITALS: Ht 147.3 cm; Wt 55.0 kg
[~2018-10-22 18:58] MED LIST changes: -NITR0.4T SL; +NITR0.4T41 SL
[2018-10-22 19:01] VITALS: BP 131/64
--- NOTE | 2018-10-22 19:09 | NUR ---
PT BIB [facility] WITH C/O CP X TODAY PT STATES ETOH TODAY
[2018-10-22] MEDS ORDERED: KETOROLAC 30 MG/1 ML IVPush ONE (19:30)
[2018-10-22 19:48] LABS: BASOPHILS # (AUTO) 0.06 x10^3/uL (0-0.1); BASOPHILS % (AUTO) 1 % (0-1); EOSINOPHILS # (AUTO) 0.13 x10^3/uL (0-0.4); EOSINOPHILS % (AUTO) 2 % (1-7); LYMPHOCYTES # (AUTO) 3.48 x10^3/uL (1-3.4); LYMPHOCYTES % (AUTO) 41 % (22-44); MD NO; MEAN CORPUSCULAR HEMOGLOBIN 27.9 pg (27.0-34.8); MEAN CORPUSCULAR HGB CONC 31.2 g/dL (32.4-35.8); MEAN CORPUSCULAR VOLUME 89.3 fL (80-100); MEAN PLATELET VOLUME 7.3 fL (7.4-10.4); MONOCYTES # (AUTO) 0.51 x10^3/uL (0.2-0.8); MONOCYTES % (AUTO) 6 % (2-9); NEUTROPHILS # (AUTO) 4.28 x10^3/uL (1.8-6.8); NEUTROPHILS % (AUTO) 51 % (42-75); PLATELET COUNT 422 x10^3/uL (130-400); RED BLOOD COUNT 3.65 x10^6/uL (3.82-5.3); RED CELL DISTRIBUTION WIDTH 19.8 % (9.6-15.2)
[2018-10-22 19:57] LABS: INTERNATIONAL NORMALIZED RATIO 1.03 (0.93-1.1); PROTHROMBIN TIME 10.8 Seconds (9.6-11.5)
[2018-10-22 19:58] LABS: ALANINE AMINOTRANSFERASE 38 U/L (12-78); ALBUMIN 3.4 g/dL (3.4-5.0); ANION GAP 10 mmol/L (5-15); CALCIUM 7.8 mg/dL (8.5-10.1); CHLORIDE 113 mmol/L (98-107); CREATININE 0.65 mg/dL (0.55-1.02)
[2018-10-22 20:03] LABS: ALKALINE PHOSPHATASE 162 U/L (45-117); BILIRUBIN,TOTAL 0.1 mg/dL (0.2-1.0); TOTAL PROTEIN 7.8 g/dL (6.4-8.2); TROPONIN I 0.079 ng/mL (0.000-0.045)
--- NOTE | 2018-10-22 21:05 | NUR ---
PT REFUSED ALL MONITORING EQUIPMENT. UNABLE TO OBTAIN VS TROUGHOUT MOST OF STAY. EDMD TO BS TO UPDATE ON POC. PT UPSET WITH PLAN TO DC. SECURITY NOTIFIED AN DTO BS FOR DC. PT DRESSED AND GIVEN DC PAPERWORK. PT ESCORTED TO DC WITH SECURITY.
== END 2018-10-22 21:11 | disposition home or self-care (01) ==
LOC: ED 21:05
DX: R07.89 Other chest pain (principal); I10 Essential (primary) hypertension; I25.2 Old myocardial infarction; F10.229 Alcohol dependence with intoxication, unspecified
CPT/HCPCS: 36415; 71045; 80053; 80307; 83690; 83880; 84484; 85025; 85610; 85730; 93005; 93970; 99284

== ENCOUNTER 2018-12-24 00:22 | Inpatient (IN) | payer MEDICAID ==
[~2018-12-24] VITALS: Ht 139.7 cm; Wt 63.0 kg
[~2018-12-24 00:22] MED LIST changes: -AMLO10TA8 PO; -ATOR-2 PO; -GUAI200T3 PO; +GUAI200T37 PO; -OMEP10CA4 PO; +OMEP10CA5 PO; -QUET25TA5 PO
--- NOTE | 2018-12-24 00:34 | NUR ---
ANDRE. REPORT RECEIVED FROM EMS. PT C/O ALL OVER THE BODY PAIN. DENIES N/V/D. +ETOH. JAPANESE SPEAKING. PT'S AOX4. RESPS EVEN AND UNLABORED. ALL MONITORS IN PLACE. CALL LIGHT WITHIN REACH. NSR ON DRILL PRESS TENDER WITHOUT ECTOPY RATE 80'S AT THIS TIME. EDMD AT BEDSIDE TO EVALUATE.
--- NOTE | 2018-12-24 00:57 | NUR ---
REPORT GIVEN TO ABEL JORDAN.
--- NOTE | 2018-12-24 00:59 | NUR ---
BS REPORT OF PT FROM JULIAN LINO AND ASSUMING CARE OF PT AT THIS TIME.
[2018-12-24 01:22] LABS: BASOPHILS # (AUTO) 0.07 x10^3/uL (0-0.1); BASOPHILS % (AUTO) 1 % (0-1); EOSINOPHILS # (AUTO) 0.45 x10^3/uL (0-0.4); EOSINOPHILS % (AUTO) 5 % (1-7); LYMPHOCYTES # (AUTO) 2.45 x10^3/uL (1-3.4); LYMPHOCYTES % (AUTO) 26 % (22-44); MD NO; MEAN CORPUSCULAR HGB CONC 31.6 g/dL (32.4-35.8); MEAN CORPUSCULAR VOLUME 91.8 fL (80-100); MEAN PLATELET VOLUME 7.9 fL (7.4-10.4); MONOCYTES # (AUTO) 0.56 x10^3/uL (0.2-0.8); MONOCYTES % (AUTO) 6 % (2-9); NEUTROPHILS # (AUTO) 5.91 x10^3/uL (1.8-6.8); NEUTROPHILS % (AUTO) 63 % (42-75); PLATELET COUNT 447 x10^3/uL (130-400); RED BLOOD COUNT 3.89 x10^6/uL (3.82-5.3); RED CELL DISTRIBUTION WIDTH 20.5 % (9.6-15.2)
[2018-12-24] MEDS ORDERED: MORPHINE SULFATE 4 MG/ML, 1ML IVPush PRN ×2 (01:30→03:30)
[2018-12-24] MEDS ORDERED: ONDANSETRON 2MG/ML, 2ML IVPush ONE (01:30)
[2018-12-24 01:31] LABS: ALBUMIN 3.4 g/dL (3.4-5.0); ANION GAP 12 mmol/L (5-15); CALCIUM 8.9 mg/dL (8.5-10.1); CHLORIDE 107 mmol/L (98-107)
[2018-12-24 01:37] LABS: ALANINE AMINOTRANSFERASE 51 U/L (12-78); ALKALINE PHOSPHATASE 215 U/L (45-117); BILIRUBIN,TOTAL 0.6 mg/dL (0.2-1.0); CREATININE 0.96 mg/dL (0.55-1.02); TOTAL PROTEIN 9.7 g/dL (6.4-8.2); TROPONIN I < 0.015 ng/mL (0.000-0.045)
[2018-12-24] MEDS ORDERED: MORPHINE SULFATE 4 MG/ML, 1ML ONE (01:54)
[2018-12-24] MEDS ORDERED: ONDANSETRON 2MG/ML, 2ML ONE (01:54)
[2018-12-24] MEDS ORDERED: ONDANSETRON 2MG/ML, 2ML IVPush PRN ×2 (03:30→04:00)
--- NOTE | 2018-12-24 03:38 | NUR ---
pt asleep in [facility] at this time; nadn. call light is within reach. will continue to monitor.
[2018-12-24] MEDS ORDERED: ONDANSETRON 2MG/ML, 2ML IV PRN (04:30)
[2018-12-24] MEDS ORDERED: LORazepam 2 MG/ML, 1ML IV PRN ×5 (04:30)
[2018-12-24 04:40] VITALS: BP 116/42
[2018-12-24] MEDS: SODIUM CHLORIDE 0.9% 1,000 ML IV SCH ×3 (04:43→12:42)
[2018-12-24 05:10] VITALS: BP 115/55
[2018-12-24] MEDS: HYDROcodone/APAP 5/325 TABLET PO PRN ×2 (05:51→18:06)
[2018-12-24] MEDS: ASPIRIN 81 MG TABLET EC PO SCH (05:51)
[2018-12-24 08:21] VITALS: BP 111/71
[2018-12-24 09:17] LABS: TROPONIN I 0.018 ng/mL (0.000-0.045)
[2018-12-24] MEDS: METOPROLOL TARTRATE 25 MG TABLET PO SCH ×2 (10:01→22:33)
[2018-12-24] MEDS: LISINOPRIL 40 MG TABLET PO SCH (10:01)
[2018-12-24] MEDS: AMLODIPINE 2.5 MG TABLET PO SCH (10:02)
[2018-12-24] MEDS: GABAPENTIN 300 MG CAPSULE PO SCH ×2 (10:02→22:32)
[2018-12-24] MEDS: OMEPRAZOLE 20 MG CAPSULE.DR PO SCH ×2 (10:02→22:32)
[2018-12-24] MEDS ORDERED: REGADENOSON 0.4 MG/5 ML SYRINGE ONE (13:35)
[2018-12-24 16:35] VITALS: BP 136/80
[2018-12-24 18:43] VITALS: BP 117/69
[2018-12-24] MEDS ORDERED: QUETIAPINE 25MG TABLET PO SCH (21:00)
[2018-12-24] MEDS ORDERED: RISPERIDONE 1 MG TABLET PO SCH (21:00)
[2018-12-24 23:23] LABS: AMPHETAMINE SCREEN, URINE Negative (Negative); BARBITURATE SCREEN, URINE Negative (Negative); BENZODIAZEPINE SCREEN, URINE Negative (Negative); CANNABINOID SCREEN, URINE Negative (Negative); COCAINE SCREEN, URINE Negative (Negative); METHADONE SCREEN, URINE Negative (Negative); OPIATE SCREEN, URINE Positive (Negative)
[2018-12-25 01:25] VITALS: BP 132/66
[2018-12-25] MEDS: SODIUM CHLORIDE 0.9% 1,000 ML IV SCH ×2 (02:37→08:10)
[2018-12-25 04:36] LABS: ANION GAP 7 mmol/L (5-15); CALCIUM 8.3 mg/dL (8.5-10.1); CHLORIDE 115 mmol/L (98-107)
[2018-12-25 04:38] LABS: CREATININE 0.48 mg/dL (0.55-1.02)
[2018-12-25 04:56] LABS: BASOPHILS # (AUTO) 0.07 x10^3/uL (0-0.1); BASOPHILS % (AUTO) 1 % (0-1); EOSINOPHILS # (AUTO) 0.56 x10^3/uL (0-0.4); EOSINOPHILS % (AUTO) 9 % (1-7); LYMPHOCYTES # (AUTO) 2.07 x10^3/uL (1-3.4); LYMPHOCYTES % (AUTO) 33 % (22-44); MD NO; MEAN CORPUSCULAR HEMOGLOBIN 29.2 pg (27.0-34.8); MEAN CORPUSCULAR HGB CONC 31.9 g/dL (32.4-35.8); MEAN CORPUSCULAR VOLUME 91.7 fL (80-100); MONOCYTES # (AUTO) 0.59 x10^3/uL (0.2-0.8); MONOCYTES % (AUTO) 9 % (2-9); NEUTROPHILS # (AUTO) 3.02 x10^3/uL (1.8-6.8); NEUTROPHILS % (AUTO) 48 % (42-75); PLATELET COUNT 326 x10^3/uL (130-400); RED BLOOD COUNT 3.16 x10^6/uL (3.82-5.3); RED CELL DISTRIBUTION WIDTH 20.1 % (9.6-15.2)
[2018-12-25] MEDS: ASPIRIN 81 MG TABLET EC PO SCH (06:40)
[2018-12-25] MEDS: AMLODIPINE 2.5 MG TABLET PO SCH (08:46)
[2018-12-25] MEDS: OMEPRAZOLE 20 MG CAPSULE.DR PO SCH (08:46)
[2018-12-25] MEDS: GABAPENTIN 300 MG CAPSULE PO SCH (08:47)
[2018-12-25] MEDS: LISINOPRIL 40 MG TABLET PO SCH (08:47)
[2018-12-25] MEDS: METOPROLOL TARTRATE 25 MG TABLET PO SCH (08:47)
[2018-12-25 09:04] VITALS: BP 137/77
== END 2018-12-25 09:31 | disposition left against medical advice (07) | DRG 198 ==
LOC: ED 00:50 → EDIP 03:30 → 5SO 04:19
PROVIDERS: ADMIT Internal Medicine; ATTEND Internal Medicine
DX: I25.110 Atherosclerotic heart disease of native coronary artery with unstable angina pectoris (principal); I95.9 Hypotension, unspecified; E78.5 Hyperlipidemia, unspecified; F10.220 Alcohol dependence with intoxication, uncomplicated; F17.200 Nicotine dependence, unspecified, uncomplicated; G89.29 Other chronic pain; I10 Essential (primary) hypertension; Y90.5 Blood alcohol level of 100-119 mg/100 ml; Z63.8 Other specified problems related to primary support group; Z91.14 Patient's other noncompliance with medication regimen; Z95.5 Presence of coronary angioplasty implant and graft; Z88.3 Allergy status to other anti-infective agents; Z96.643 Presence of artificial hip joint, bilateral; Z53.21 Procedure and treatment not carried out due to patient leaving prior to being seen by health care provider
CPT/HCPCS: 0399T; 36415; 71045; 78452; 80048; 80053; 80307; 83690; 84484; 85025; 93005; 93306; 96374; 96375; 99285; G0378; J2405; J2785; A9502; J2270; J7030